=== PATIENT | female | born 1935 | race Caucasian/White ===

== ENCOUNTER 2024-06-15 08:20 | Observation (INO) | payer MEDICARE, SELFPAY ==
[2024-06-15] VITALS (18 sets, daily range): BP systolic 133–161; BP diastolic 52–97; PULSE 56–70; RESP 15–24; TEMP 36.4–36.7; O2SAT 92–97; BMI 32.1; BMI 38.5
--- NOTE | 2024-06-15 08:26 | ECG_ITS ---
[facility] Test Date: 2024-06-15 Pat Name: Vannessa Ramirez Department: Room: Gender: Female Director Writing: : 1935 Requested By: Chilo Chery Order Number: [id number] Travon MD: eMhrdad Naranjo M.D. Measurements Intervals [place] Rate: 59 P: 0 CA: 0 QRS: 0 QRSD: 104 T: 57 QT: 441 QTc: 440 Interpretive Statements Sinus bradycardia LOW QRS VOLTAGE IN PRECORDIAL LEADS [QRS DEFLECTION < 1.0 mV IN CHEST LEADS] ABNORMAL RHYTHM ECG Compared to ECG 04/14/2018 23:22:50 Low QRS voltage now present Sinus rhythm no longer present Left-axis deviation no longer present T-wave abnormality no longer present Electronically Signed On 06-15-2024 22:26:02 CDT by Mehrdad Naranjo M.D. [id number]
--- NOTE | 2024-06-15 08:31 | XR_ITS ---
WS: [id number] XR chest 1V portable [id number] REASON FOR EXAM: chest pain FINDINGS: There is moderate tortuosity of the thoracic aorta and the heart is at the upper limits of normal in size. Compared to the previous examination of 04/14/2018 there is vague increased opacity overlying both low er lung roth. This would appear to be due to overlying density and lack of optimal inspiration. Pos itioning is angled cephalically. No other significant interval change is noted. XR/XR chest 1V portable [id number] IMPRESSION: Increased opacity overlying both hemithoraces as above. This appears to be janette factual and a repeat chest with better inspiration and less angulation is recom mended.
--- NOTE | 2024-06-15 08:44 | ED_ITS ---
HPI - Chest Pain 2 General: Chief Complaint: Chest Pain Stated Complaint: chest pain Time Seen by Provider: 06/15/24 08:26 History of Present Illness: 88-year-old female who presents to the e mergency room with complaint of substernal chest pain that began this morning while at rest. Patient states the pain lasted about an hour was in the upper left portion of her chest immediately adjacent to the sternum. She did not take anything or do anything different began when she is at rest and resolved while at rest. She has had similar episodes in the past she states he has episodes about once a month she not had any recent evaluation. She reports a cardiac evaluation approximately 5 or more years ago that she was told was normal. She has no known coronary artery disease. She did have a victory ectomy at the [facility] yesterday as an outpatient. Associated symptoms: Deny abdominal pain, dyspnea or fever(s) Related Data Home Medications Medication Instructions Recorded Confirmed amlodipine 10 mg tablet 10 mg PO DAILY 06/15/24 06/15/24 calcitriol 0.25 mcg capsule 0.25 mcg PO .3X WEEKLY 06/15/24 06/15/24 furosemide 40 mg tablet 40 mg PO .EVERY OTHER DAY 06/15/24 06/15/24 insulin glargine 100 unit/mL (3 60 unit SUBCUT DAILY 06/15/24 06/15/24 mL) subcutaneous pen (Lantus Solostar U-100 Insulin) insulin glargine-yfgn 100 unit/mL 60 unit SUBCUT DAILY 06/15/24 06/15/24 (3 mL) subcutaneous pen (Semglee (insulin glargine-yfgn) Pen) metoprolol tartrate 100 mg tablet 100 mg PO BID 06/15/24 06/15/24 pen needle, diabetic 31 gauge x 06/15/24 06/15/24 5/16 (BD Ultra-Fine Short Pen Needle) sodium bicarbonate 650 mg tablet 650 mg PO TID 06/15/24 06/15/24 valsartan 80 mg tablet 80 mg PO DAILY 06/15/24 06/15/24 Allergies Allergy/AdvReac Type Severity Reaction Status Date / Time Penicillins Allergy ALGY-Hives Verified 06/15/24 13:14 Review of Systems 2 Const: Denies: fever(s) or chills Card: Denies: chest pain Resp: Denies: dyspnea GI: Denies: abdominal pain : Denies: dysuria, urinary frequency or urinary urgency Musc: Denies: neck pain or back pain Skin/Breast: Denies: rash PFSH ED 2 PFSH: Medical History Diabetes CHF (congestive heart failure) Physical Exam 2 Const: GENERAL APPEARANCE: cooperative ORIENTATION/CONSCIOUSNESS: Yes awake, Yes oriented to person, Yes oriented to place and Yes oriented to time HENMT: COMMON NORMALS: normocephalic, atraumatic and hearing grossly normal bilaterally HEAD & SCALP: normocephalic and atraumatic Resp: COMMON NORMALS: normal respiratory effort, No retractions, No use of accessory muscles and clear to auscultation bilaterally AUSCULTATION: clear to auscultation bilaterally Cardio: COMMON NORMALS: regular rate, regular rhythm and No murmurs present (Cardio) RATE: regular rate RHYTHM: regular rhythm GI: COMMON NORMALS: Soft to palpation and No hepatosplenomegaly present A USCULTATION: Yes normoactive bowel sounds PALPATION: Yes Soft to palpation, No Tenderness to palpation present (GI), No Guarding due to palpation present (GI) and Yes No hepatosplenomegaly present Extremity: COMMON NORMALS: normal to inspection, capillary refill normal, no clubbing, cyanosis or edema, no calf tenderness and no pedal edema Neuro: SENSORIUM/ORIENTATION: Yes oriented to person, Yes oriented to place and Yes oriented to time Skin: COMMON NORMALS: no rashes or lesions noted GENERAL SKIN EXAM: no rashes or lesions noted Course 2 Vital Signs: Vital signs: Vital Signs Temperature 98.1 F 06/15/24 08:26 Pulse Rate 70 06/15/24 12:30 Respiratory Rate 20 H 06/15/24 12:30 Blood Pressure 136/77 06/15/24 12:30 Pulse Oximetry 92 06/15/24 12:30 Oxygen Delivery Me thod Room Air 06/15/24 08:26 MDM - Chest Pain Medical Decision Making Patient complained of chest pain on arrival here continues to have chest discomfort she has leukocytosis as well as acute kidney injury hyponatremia and hypokalemia. Will admit the patient discussed with hospitalist orders written hyperkalemia treated. Lab Data I reviewed the patient's lab results. 06/15/24 08:40 06/15/24 08:40 Radiology Impressions Chest X-Ray 06/15/24 09:19 IMPRESSION: Stable chest with no acute abnormality. Abdomen/Pelvis CT 06/15/24 13:27 IMPRESSION: 1. No nephrolithiasis or hydronephrosis. 2. Partially imaged peribronchovascular right lower lobe ground-glass opacities with central areas of consolidation, which are nonspecific but may represent atypical or viral bronchopneumonia. Correlate with patient's symptoms and follow-up with chest CT in 4-6 weeks to assess for resolution after treatment. 3. Status post prior hiatal hernia repair. Persistent juacr-rz-abtkqawk sized hiatal hernia. 4. Multiple bilateral simple renal cysts, hemorrhagic/proteinaceous cysts and subcentimeter hypodensities are too small to properly characterize. COMMENTS: Consistent with the [place] [employer]'s Incidental Findings Committee white paper (J Am Rose Radiol 2018): Any incidental renal lesion less than 1 cm or classified as too small to characterize, or any incidental cystic renal lesion characterized as simple-appearing, is likely benign. No follow-up imaging is recommended for these lesions per consensus recommendations based on imaging criteria. Laboratory Results WBC 17.15 10^3/uL (3.29-11.43) H 06/15/24 08:40 RBC 3.50 10^6/uL (3.85-5.65) L 06/15/24 08:40 Hgb 10.70 g/dL (11.27-16.99) L 06/15/24 08:40 Hct 32.8 % (36-47) L 06/15/24 08:40 MCV 93.7 fl (85-98) 06/15/24 08:40 MCH 30.6 pg (27-33) 06/15/24 08:40 MCHC 32.6 g/dL (30-55) 06/15/24 08:40 RDW 13.1 % (12.1-15.1) 06/15/24 08:40 Plt Count 187 10^3/cmm (157-399) 06/15/24 08:40 MPV 11.1 fL (7.4-10.4) H 06/15/24 08:40 Neut % (Auto) 85.0 % 06/15/24 08:40 Lymph % (Auto) 9.7 % 06/15/24 08:40 Grimes % (Auto) 4.5 % 06/15/24 08:40 Eos % (Auto) 0.0 % 06/15/24 08:40 Baso % (Auto) 0.2 % 06/15/24 08:40 Neut # (Auto) 14.57 10^3/uL (1.8-7.7) H 06/15/24 08:40 Lymph # (Auto) 1.7 10^3/uL (0.8-4.8) 06/15/24 08:40 Grimes # (Auto) 0.8 10^3/uL (0.2-0.9) 06/15/24 08:40 Eos # (Auto) 0.0 10^3/uL (0.0-0.8) 06/15/24 08:40 Baso # (Auto) 0.0 10^3/uL (0.0-0.1) 06/15/24 08:40 Nucleated RBC % (auto) 0 % 06/15/24 08:40 Nucleated RBCs # 0.0 /100WBC 06/15/24 08:40 D-Dimer 1.50 ug/mLFEU (0-0.59) H 06/15/24 08:40 Sodium 127 mmol/L (136-145) L 06/15/24 08:40 Potassium 5.4 mmol/L (3.5-5.1) H 06/15/24 08:40 Chloride 94 mmol/L (98-107) L 06/15/24 08:40 Carbon Dioxide 18 mmol/L (22-29) L 06/15/24 08:40 Anion Gap 20.4 (5-19) H 06/15/24 08:40 BUN 48 mg/dL (8-23) H 06/15/24 08:40 Creatinine 2.8 mg/dL (0.5-0.9) H 06/15/24 08:40 GFR Calculation Not Reportable 06/15/24 08:40 Glucose 455 mg/dL (65-115) H 06/15/24 08:40 Calculated Osmolality 296 mOsm/kg (285-295) H 06/15/24 08:40 Lactic Acid 2.8 mmol/L (0.5-2.2) H 06/15/24 08:40 Lactic Acid (Sepsis) 2.2 mmol/L (0.5-2.2) 06/15/24 14:31 Calcium 8.5 mg/dL (8.5-10.5) 06/15/24 08:40 Total Bilirubin 0.4 mg/dL (0.15-1.2) 06/15/24 08:40 AST 15 U/L (0-32) 06/15/24 08:40 ALT 8 U/L (0-33) 06/15/24 08:40 Alkaline Phosphatase 142 U/L (35-105) H 06/15/24 08:40 Troponin T Baseline 31 ng/L (0-10) H 06/15/24 08:40 Troponin T 120 Minute 33.20 ng/L (0-10) H 06/15/24 10:36 Delta Troponin T 2.20 ABS# (0-10) 06/15/24 10:36 Troponin T Hi Sens 6Hr 36.42 ng/L (0-10) H 06/15/24 14:31 Troponin T Hi Sens 6Hr Delta 5.42 ng/L (0-12) 06/15/24 14:31 NT-Pro-B Natriuret Pep 3248 pg/mL (0-450) H 06/15/24 08:40 Total Protein 6.4 g/dL (6.6-8.7) L 06/15/24 08:40 Albumin 3.9 g/dL (3.5-5.2) 06/15/24 08:40 Globulin 2.5 g/dL (1.3-4.6) 06/15/24 08:40 Serum Ketones Negative (Negative) 06/15/24 08:40 All radiology interpretation(s) finalized by discharge Discharge Plan Discharge Patient Disposition: Admitted As Inpatient Admit Provider: Misha López Clinical Impression: Atypical chest pain, Acute kidney injury superimposed on chronic kidney disease, Diabetes, CHF (congestive heart failure) Condition: Stable Coding Level of Care Code ED [place] for Matt Shin
[2024-06-15 08:47] LABS: Basophils % 0.2 %; Hematocrit 32.8 % (36-47); Lymphocytes # 1.7 10^3/uL (0.8-4.8); Lymphocytes % 9.7 %; Mean Corpuscular HGB Conc 32.6 g/dL (30-55); Mean Corpuscular Hemoglobin 30.6 pg (27-33); Mean Corpuscular Volume 93.7 fl (85-98); Mean Platelet Volume 11.1 fL (7.4-10.4); Monocytes # 0.8 10^3/uL (0.2-0.9); Monocytes % 4.5 %; Neutrophils # 14.57 10^3/uL (1.8-7.7); Nucleated Red Blood Cells % 0 %; Platelet Count 187 10^3/cmm (157-399); Red Cell Distribution Width 13.1 % (12.1-15.1); White Blood Count 17.15 10^3/uL (3.29-11.43)
[2024-06-15 09:09] LABS: Troponin(5th) Baseline 31 ng/L (0-10)
[2024-06-15] MEDS: aspirin 81 mg Chew Tablet 324 MG PO (09:09)
[2024-06-15 09:14] LABS: Alanine Aminotransferase 8 U/L (0-33); Albumin Level 3.9 g/dL (3.5-5.2); Alkaline Phosphatase 142 U/L (35-105); Aspartate Amino Transferase 15 U/L (0-32); Blood Urea Nitrogen 48 mg/dL (8-23); Calcium 8.5 mg/dL (8.5-10.5); Carbon Dioxide 18 mmol/L (22-29); Chloride 94 mmol/L (98-107); Creatinine Clr Calc Pharmacy 13.5524; Globulin 2.5 g/dL (1.3-4.6); Glucose 455 mg/dL (65-115); NT Pro B Type Natriuretic Pept 3248 pg/mL (0-450); Osmolality Calculated 296 mOsm/kg (285-295); Sodium 127 mmol/L (136-145); Total Bilirubin 0.4 mg/dL (0.15-1.2); Total Protein 6.4 g/dL (6.6-8.7)
[2024-06-15 09:16] LABS: Anion Gap 20.4 (5-19); Potassium 5.4 mmol/L (3.5-5.1)
--- NOTE | 2024-06-15 09:19 | XR_ITS ---
WS: [id number] XR chest 2V* [id number] REASON FOR EXAM: abnormal AP CXR FINDINGS: Repeat examination clears the lower hemithoraces and the chest is essentially unchanged compared to . Moderate tortuosity of the thoracic aorta hiatal hernia. Heart at the upper limits of normal. No acute pulmonary parenchymal or pleural abnormality. XR/XR chest 2V* [id number] IMPRESSION: Stable chest with no acute abnormality.
--- NOTE | 2024-06-15 10:31 | ECG_ITS ---
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 Measurements Intervals [place] Rate: 57 P: -78 MA: 132 QRS: 2 QRSD: 97 T: 41 QT: 456 QTc: 446 Interpretive Statements Possible sinus bradycardia LOW QRS VOLTAGE IN PRECORDIAL LEADS [QRS DEFLECTION < 1.0 mV IN CHEST LEADS] ABNORMAL RHYTHM ECG Compared to ECG 06/15/2024 08:26:27 No significant changes Electronically Signed On 06-15-2024 22:42:18 CDT by Mehrdad Naranjo M.D. [id number]
[2024-06-15] MEDS: sodium chloride 0.9% 1,000 ML 999 ML IV (12:05)
[2024-06-15] MEDS: calcium chloride 10% Syr 10 mL 1 GM IVP (12:06)
[2024-06-15] MEDS: insulin regular-human 100 units/1 mL 10 UNIT IVP (12:15)
[2024-06-15 12:25] LABS: Ketone (Acetest) Serum Negative (Negative)
[2024-06-15 12:35] LABS: Lactic Sepsis W/Reflex 2.8 mmol/L (0.5-2.2)
--- NOTE | 2024-06-15 13:02 | PC.NURSE ---
WHEN PT IS D/C, SOMEONE WILL NEED TO CONTACT [facility] FOR AN APPT FOR PT. PT HAD A PROCEDURE DONE ON 06/14 AND WAS SUPPOSED TO BE SEEN TODAY BUT IS BEING ADMITTED TO THE HOSPITAL.
--- NOTE | 2024-06-15 13:09 | P.HP_ITS ---
Providers/Chief Complaint 2 Primary Care Provider: Teja Yost MD Chief Complaint: chest pain History of Present Illness Vannessa Ramirez is a 88 year old female presented with chief complaint chest pain. She is able to pinpoint her area of chest pain which is just next to her sternum on left side, not associated with shortness of breath chest pain nausea vomiting or diarrhea. She recently had eye surgery. Patient is stating that she had high potassium and abnormal creatinine few weeks ago as well she is seeing a airline dispatcher as well at [place]. She is compliant with her medications. No active chest pain at the time my evaluation Review of Systems 2 Const: Denies: fever(s) Eyes: Denies: change in vision ENMT: Denies: throat pain Card: Reports: chest pain Resp: Denies: dyspnea GI: Denies: abdominal pain Medications/Allergies Home Medications Medication Instructions Recorded Confirmed Last Taken Type amlodipine 10 mg tablet 10 mg PO DAILY 06/15/24 06/15/24 06/14/24 History calcitriol 0.25 mcg capsule 0.25 mcg PO .3X WEEKLY 06/15/24 06/15/24 Unknown History furosemide 40 mg tablet 40 mg PO .EVERY OTHER DAY 06/15/24 06/15/24 Unknown History insulin glargine 100 unit/mL (3 60 unit SUBCUT DAILY 06/15/24 06/15/24 Unknown History mL) subcutaneous pen (Lantus Solostar U-100 Insulin) insulin glargine-yfgn 100 unit/mL 60 unit SUBCUT DAILY 06/15/24 06/15/24 06/14/24 History (3 mL) subcutaneous pen (Semglee (insulin glargine-yfgn) Pen) metoprolol tartrate 100 mg tablet 100 mg PO BID 06/15/24 06/15/24 Unknown History pen needle, diabetic 31 gauge x 06/15/24 06/15/24 Unknown History 5/16 (BD Ultra-Fine Short Pen Needle) sodium bicarbonate 650 mg tablet 650 mg PO TID 06/15/24 06/15/24 Unknown History valsartan 80 mg tablet 80 mg PO DAILY 06/15/24 06/15/24 Unknown History Allergies Allergy/AdvReac Type Severity Reaction Status Date / Time Penicillins Allergy ALGY-Hives Verified 06/15/24 13:14 PFSH Acute 2 PFSH: Medical History Diabetes CHF (congestive heart failure) Vitals/I&O/Wt Last Vital Signs Temp 98.1 F 06/15/24 08:26 Pulse 70 06/15/24 12:30 Resp 20 H 06/15/24 12:30 BP 136/77 06/15/24 12:30 Pulse Ox 92 06/15/24 12:30 O2 Del Method Room Air 06/15/24 08:26 Weight last 48 hrs Weight 77.111 kg Physical Exam 2 Narrative: Reproducible chest pain Euvolemic GCS 15 Pleasant above Normotensive Currently on room air Pleasant cooperative Family at the bedside No audible stridor or wheezing S1, S2 Data 06/15/24 08:40 06/15/24 08:40 A&P Assessment and plan (1) Hyperkalemia: (2) JANELLE (acute kidney injury): (3) Acute kidney injury superimposed on chronic kidney disease: (4) Atypical chest pain: Plan Reproducible chest pain Atypical pain I do not have concern related to ACS syndrome Will request echo to see wall motion abnormality Troponin trending down Requested D-dimer Acute on chronic kidney disease Hyperkalemia Give Kayexalate, hyperkalemia cocktail Discontinue valsartan Patient already follows up with a airline dispatcher I do not know her baseline creatinine To rule out cluster uropathy will request CT abdomen pelvis, urine supple was taken from the urine hat which definitely showed contamination Will keep her on consistent carb diet along sliding scale and reduce dose of insulin For hypertension continue metoprolol, discontinue valsartan and switch to metoprolol and amlodipine Attestations 2 Medical Necessity Statement*: Likely discharge within 48 hours Diagnoses Hyperkalemia E87.5 JANELLE (acute kidney injury) N17.9 Acute kidney injury superimposed on chronic kidney disease N17.9; N18.9 Atypical chest pain R07.89
[2024-06-15] MEDS: cefTRIAXone 1,000 mg SDV 1000 MG IVP (13:13)
--- NOTE | 2024-06-15 13:27 | CTR_ITS ---
PROCEDURE INFORMATION: Exam: CT Abdomen And Pelvis Without Contrast Exam date and time: 06/15/2024 2:18 PM Age: 88 years old Clinical indication: Pain; Other: Chest; Prior surgery; Surgery date: 6+ months; Surgery type: Gb; Additional info: Venkatesh TECHNIQUE: Imaging protocol: Computed tomography of the abdomen and pelvis without contrast. Radiation optimization: All CT scans at this facility use at least one of these dose optimization techniques: automated exposure control; mA and/or kV adjustment per patient size (includes targeted exams where dose is matched to clinical indication); or iterative reconstruction. COMPARISON: CR XR chest 2V* [id number] 06/15/2024 9:35 AM RADIATION DOSE METRICS: Total DLP (mGy-cm): 797.13 FINDINGS: Lungs: Partially imaged peribronchovascular right lower lobe ground-glass opacities with central areas of consolidation. Heart: Low-attenuation of the cardiac chambers in relation to the interventricular septum, suggestive of anemia. Diaphragm: There is a etpgl-qw-lroxcgox sized hiatal hernia. Status post prior hiatal hernia repair. Liver: Mildly nodular contour of the liver. Gallbladder and biliary ducts: There has been a cholecystectomy. No biliary ductal dilatation. Pancreas: There is diffuse fatty atrophy of the pancreatic parenchyma. No ductal dilation. Spleen: The spleen demonstrates punctate calcifications, consistent with remote granulomatous organism exposure. Adrenal glands: The adrenal glands are unremarkable. Kidneys and ureters: Multiple bilateral simple renal cysts, hemorrhagic/proteinaceous cysts and subcentimeter hypodensities are too small to properly characterize. No nephrolithiasis or hydronephrosis. Stomach and bowel: Colonic diverticulosis without evidence of diverticulitis. There is no bowel wall thickening. No bowel obstruction. Appendix: A normal appendix is identified. Intraperitoneal space: No significant peritoneal free fluid. No free peritoneal air. Vasculature: The vasculature demonstrates diffuse moderate atherosclerotic calcification. No aneurysm. Lymph nodes: No enlarged lymph nodes by size criteria. Urinary bladder: The bladder is unremarkable. Reproductive: Uterus is unremarkable. No suspicious adnexal lesion seen. Bones/joints: The spine demonstrates moderate degenerative changes at multiple levels. Soft tissues: Soft tissues are unremarkable as visualized. CT/CT abdomen pelvis wo con [id number] IMPRESSION: 1. No nephrolithiasis or hydronephrosis. 2. Partially imaged peribronchovascular right lower lobe ground-glass opacities with central areas of consolidation, which are nonspecific but may represent atypical or viral bronchopneumonia. Correlate with patient's symptoms and follow-up with chest CT in 4-6 weeks to assess for resolution after treatment. 3. Status post prior hiatal hernia repair. Persistent akpqz-wm-duouhbgs sized hiatal hernia. 4. Multiple bilateral simple renal cysts, hemorrhagic/proteinaceous cysts and subcentimeter hypodensities are too small to properly characterize. COMMENTS: Consistent with the [place] [employer]'s Incidental Findings Committee white paper (J Am Rose Radiol 2018): Any incidental renal lesion less than 1 cm or classified as too small to characterize, or any incidental cystic renal lesion characterized as simple-appearing, is likely benign. No follow-up imaging is recommended for these lesions per consensus recommendations based on imaging criteria.
[2024-06-15 13:51] LABS: Bilirubin Urine Negative (Negative); Blood Urine Trace (Negative); Glucose Urine UA 3+ (Normal); Ketones Urine Negative (Negative); Leukocyte Esterase Urine Trace (Negative); Nitrate Urine Negative (Negative); Protein Urine 3+ (Negative); Specific Gravity, Urine 1.013 (1.005-1.030); Urine Appearance Clear (CLEAR); Urine Color Yellow (Yellow); Urobilinogen Urine 0.2 mg/dL (Negative); pH Urine 6.5 (5-7)
[2024-06-15 13:53] LABS: Add Urine Microscopic? YES; Bacteria Urine None Seen /hpf; Hyaline Casts Urine 0-4 /lpf; RBC Urine 0-2 /hpf (0-2); Squamous Epithelial Cell Urine 0-5 /hpf (0-5); WBC Urine 0-5 /hpf (0-5)
[2024-06-15 14:09] LABS: Reflex Lactate Order REFLEX LACTIC ORDERD
[2024-06-15 14:54] LABS: Troponin 5 6HR 36.42 ng/L (0-10); Troponin 5 6HR Delta 5.42 ng/L (0-12)
[2024-06-15 14:55] LABS: Lactic Acid level (Lactate) 2.2 mmol/L (0.5-2.2)
[2024-06-15] MEDS: cefepime 1,000 MG in sodium chloride 0.9% (plus) 50 ML 100 MG IV (15:11)
[2024-06-15] MEDS: sodium polystyrene sulfonate 15 gm/60 mL Btl PO (15:14)
--- NOTE | 2024-06-15 15:15 | ECG_ITS ---
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 Measurements Intervals [place] Rate: 70 P: 68 [place]: 194 QRS: 2 QRSD: 102 T: 54 QT: 403 QTc: 436 Interpretive Statements SINUS RHYTHM LOW QRS VOLTAGE IN PRECORDIAL LEADS [QRS DEFLECTION < 1.0 mV IN CHEST LEADS] POSSIBLE RIGHT VENTRICULAR CONDUCTION DELAY [RSR (QR) IN V1/V2] NONSPECIFIC T-WAVE ABNORMALITY Compared to ECG 06/15/2024 10:46:31 T-wave abnormality now present Electronically Signed On 06-15-2024 22:45:22 CDT by Mehrdad Naranjo M.D. [id number]
[2024-06-15] MEDS: lactated ringers 1,000 ML 999 ML IV (15:16)
[2024-06-15] MEDS: linezolid premix 600 MG/300 ML PREMIX 300 MG IV (15:26)
[2024-06-15 16:41] LABS: Covid PCR NEGATIVE (Negative); Influenza A NEGATIVE (Negative); Influenza B NEGATIVE (Negative); Respiratory Syncytial Virus Ce NEGATIVE (Negative)
[2024-06-15 16:49] LABS: Estmated Average Glucose 197; Hemoglobin A1C 8.5 % (4.0-6.0)
[2024-06-15 16:55] LABS: Glucose Point of Care 321 mg/dL (70-110)
[2024-06-15] MEDS: heparin 5,000 unit/mL INJ 1 mL 5000 UNIT SUBCUT (17:19)
[2024-06-15] MEDS: sodium bicarbonate 650 mg Tablet PO ×2 (17:20→20:21)
[2024-06-15] MEDS: sodium chloride 0.9% 1,000 ML 75 ML IV (17:20)
[2024-06-15] MEDS: metoprolol tartrate 50 mg Tablet 100 MG PO (17:21)
[2024-06-15] MEDS: insulin lispro 100 unit/1 mL SUBCUT (17:22)
[2024-06-15 20:22] LABS: Glucose Point of Care 337 mg/dL (70-110)
[2024-06-15] MEDS: insulin glargine 100 units/1 mL 40 UNIT SUBCUT (21:23)
[2024-06-16] MEDS: linezolid premix 600 MG/300 ML PREMIX 300 MG IV (02:04)
[2024-06-16 02:39] LABS: Basophils # 0.1 10^3/uL (0.0-0.1); Basophils % 0.5 %; Eosinophils % 0.2 %; Hematocrit 30.6 % (36-47); Lymphocytes # 2.6 10^3/uL (0.8-4.8); Lymphocytes % 20.5 %; Mean Corpuscular Hemoglobin 30.5 pg (27-33); Mean Corpuscular Volume 95.3 fl (85-98); Mean Platelet Volume 11.3 fL (7.4-10.4); Monocytes # 0.7 10^3/uL (0.2-0.9); Monocytes % 5.7 %; Neutrophils % 72.4 %; Nucleated Red Blood Cells % 0 %; Platelet Count 174 10^3/cmm (157-399); Red Blood Count 3.21 10^6/uL (3.85-5.65); Red Cell Distribution Width 13.3 % (12.1-15.1); White Blood Count 12.85 10^3/uL (3.29-11.43)
[2024-06-16 03:09] LABS: Anion Gap 16.4 (5-19); Blood Urea Nitrogen 50 mg/dL (8-23); Carbon Dioxide 19 mmol/L (22-29); Chloride 108 mmol/L (98-107); Glucose 244 mg/dL (65-115); Magnesium 1.7 mg/dL (1.7-2.3); Osmolality Calculated 309 mOsm/kg (285-295); Potassium 4.4 mmol/L (3.5-5.1); Sodium 139 mmol/L (136-145)
[2024-06-16 03:10] LABS: Creatinine Clr Calc Pharmacy 16.0944
[2024-06-16] MEDS: cefepime 1,000 MG in sodium chloride 0.9% (plus) 50 ML 100 MG IV (03:35)
[2024-06-16] MEDS: heparin 5,000 unit/mL INJ 1 mL 5000 UNIT SUBCUT (03:36)
[2024-06-16 03:51] VITALS: BP 160/69; PULSE 56; RESP 21; TEMP 36.2; O2SAT 92
[2024-06-16 05:41] VITALS: PULSE 55
--- NOTE | 2024-06-16 06:27 | USCV_ITS ---
[place], [place] Age: 88 Gender: F : 1935 Exam Date: 06/16/2024 08:55 Ordering Phys: Misha López MD Technologist: Yohan Castorena [place] [facility] [place] [facility] [place]: chest pain BP: 158 / 64 HR: 52 Rhythm: Sinus Technical Quality: Adequate MEASUREMENTS (Male / Female) Normal Values 2D ECHO LV Diastolic Diameter PLAX 4.2 cm 4.2 - 5.9 / 3.9 - 5.3 cm IVS Diastolic Thickness 1.4 cm 0.6 - 1.0 / 0.6 - 0.9 cm IVS Systolic Thickness 1.8 cm LVPW Diastolic Thickness 2.0 cm 0.6 - 1.0 / 0.6 - 0.9 cm LVPW Systolic Thickness 2.0 cm LVOT Diameter 2.0 cm LV Ejection Fraction 2D Teich 60.8 % LV Ejection Fraction MOD 4C 62.0 % LV Ejection Fraction MOD 2C 65.1 % LV Ejection Fraction 2C AL 66.3 % RA Systolic Volume 4C AL 52.2 ml RA Systolic Volume 4C MOD 52.9 ml LA Sys Volume AL 48.4 cm cubed LA Sys Volume Index AL 26.6 cm cubed/m squared Aorta at Sinotubular Diameter 2.5 cm IVC Diameter 1.9 cm M-MODE LA Ao Ratio MM 1.2 AV Cusp Separation MM 2.0 cm DOPPLER AV Peak Velocity 155.8 cm/s LVOT Peak Velocity 101.0 cm/s AV Area Cont Eq vti 2.0 cm squared AV Area Cont Eq pk 2.1 cm squared MV Peak Velocity 230.7 cm/s MV Area PHT 2.1 cm squared Mitral E to A Ratio 0.9 TV Peak Velocity 288.5 cm/s TR Peak Velocity 389.0 cm/s TR Peak Gradient 60.5 mmHg TR Mean Velocity 313.0 cm/s TR Mean Gradient 41.6 mmHg TR Velocity Time Integral 130.5 cm RV Ejection Time 0.4 s FINDINGS Left Ventricle Left ventricle is normal in size. LV systolic function is normal with EF of 55 to 60%. No regional wall motion abnormalities are seen. Grade 1 diastolic dysfunction Right Ventricle Normal in size and function. Right Atrium Normal in size Left Atrium Normal in size Mitral Valve Mild mitral annular calcification. Mild mitral regurgitation. Aortic Valve Aortic valve is thickened. No significant stenosis or regurgitation. Tricuspid Valve Mild tricuspid regurgitation. RVSP is 55 to 60 mmHg. This is consistent with moderate to severe pulmonary hypertension Pulmonic Valve Not well visualized Pericardium Normal Aorta Normal in size IVC Appears to be normal CONCLUSIONS LV systolic function is normal with EF of 55-60% Grade 1 diastolic dysfunction Mild mitral regurgitation Mild tricuspid regurgitation Moderate to severe pulmonary hypertension Kedar Holbrook MD (Electronically Signed) Final Date: 16 June 2024 13:10 S
[2024-06-16 07:38] LABS: Glucose Point of Care 207 mg/dL (70-110)
[2024-06-16 08:04] VITALS: BP 158/64; PULSE 59; RESP 20; TEMP 36.6; O2SAT 94
[2024-06-16] MEDS: sodium bicarbonate 650 mg Tablet PO (08:16)
[2024-06-16] MEDS: insulin lispro 100 unit/1 mL SUBCUT (08:16)
[2024-06-16] MEDS: amlodipine 10 mg Tablet PO (08:16)
[2024-06-16] MEDS: metoprolol tartrate 50 mg Tablet 100 MG PO (08:16)
--- NOTE | 2024-06-16 08:23 | PM.DCS ---
Discharge Providers Date of Admission: 06/15/24 15:25 Date of Discharge: June 16, 2024 Attending Provider at Admission: Misha López MD Attending Provider at Discharge: Misha López MD Primary Care Provider: Teja Yost MD Diagnoses at Discharge Discharge Diagnosis (1) Hyperkalemia: Status: Acute (2) JANELLE (acute kidney injury): Status: Acute (3) Acute kidney injury superimposed on chronic kidney disease: Status: Acute (4) Atypical chest pain: Status: Acute Reason for Visit Reason for Visit: chest pain Hospital Course Hospital Course 88-year-old female with history of chronic kidney disease follows up with a manager of enterprise at [facility], [place], presented with chief complaint of chest pain. Her chest pain was atypical, it was reproducible, she was able to pinpoint the area of chest pain as well. She was diagnosed with hyperkalemia and JANELLE that prompted admission in the hospital, with IV fluid hydration and hyperkalemia cocktail her creatinine and hyperkalemia improved. She did not experience recurrence of chest pain. Troponin without significant elevation, she is already on bicarb tablets prescribed by her manager of enterprise. I have asked her not to take valsartan which can cause hyperkalemia and worsening of creatinine at this point. We do not have her baseline creatinine. Patient is ready to go home and follow-up with outpatient manager of enterprise. She remained afebrile, her leukocyte was around 17,000 on admission which improved to 12,000, she seems to have bronchopneumonia for which she will require antibiotic for at least 5 days. She remained afebrile did not require oxygen. Her D-dimer was 1.5 which is not high for her age. Physical Exam Narrative: Hemodynamically stable GCS 15 Pleasant cooperative Nonfocal neuroexam Discharge Data Studies Completed and Pending Completed Studies During Hospitalization Category Date Time Status CT abdomen pelvis wo con [id number] Stat Cat Scan 06/15/24 13:27 Completed XR chest 1V portable [id number] Stat Exams 06/15/24 08:31 Completed XR chest 2V* [id number] Stat Exams 06/15/24 09:19 Completed Pending at discharge Category Date Time Status Blood Culture Stat Lab 06/15/24 14:47 Results CV. echo complete* [id number] Stat Ultrasound 06/16/24 06:27 Ordered Radiology Impressions Chest X-Ray 06/15/24 09:19 IMPRESSION: Stable chest with no acute abnormality. Abdomen/Pelvis CT 06/15/24 13:27 IMPRESSION: 1. No nephrolithiasis or hydronephrosis. 2. Partially imaged peribronchovascular right lower lobe ground-glass opacities with central areas of consolidation, which are nonspecific but may represent atypical or viral bronchopneumonia. Correlate with patient's symptoms and follow-up with chest CT in 4-6 weeks to assess for resolution after treatment. 3. Status post prior hiatal hernia repair. Persistent [id number] sized hiatal hernia. 4. Multiple bilateral simple renal cysts, hemorrhagic/proteinaceous cysts and subcentimeter hypodensities are too small to properly characterize. COMMENTS: Consistent with the [employer]'s Incidental Findings Committee white paper (J Am Rose Radiol 2018): Any incidental renal lesion less than 1 cm or classified as too small to characterize, or any incidental cystic renal lesion characterized as simple-appearing, is likely benign. No follow-up imaging is recommended for these lesions per consensus recommendations based on imaging criteria. Laboratory Results WBC 12.85 10^3/uL (3.29-11.43) H 06/16/24 02:15 RBC 3.21 10^6/uL (3.85-5.65) L 06/16/24 02:15 Hgb 9.80 g/dL (11.27-16.99) L 06/16/24 02:15 Hct 30.6 % (36-47) L 06/16/24 02:15 MCV 95.3 fl (85-98) 06/16/24 02:15 MCH 30.5 pg (27-33) 06/16/24 02:15 MCHC 32.0 g/dL (30-55) 06/16/24 02:15 RDW 13.3 % (12.1-15.1) 06/16/24 02:15 Plt Count 174 10^3/cmm (157-399) 06/16/24 02:15 MPV 11.3 fL (7.4-10.4) H 06/16/24 02:15 Neut % (Auto) 72.4 % 06/16/24 02:15 Lymph % (Auto) 20.5 % 06/16/24 02:15 [place] % (Auto) 5.7 % 06/16/24 02:15 Eos % (Auto) 0.2 % 06/16/24 02:15 Baso % (Auto) 0.5 % 06/16/24 02:15 Neut # (Auto) 9.30 10^3/uL (1.8-7.7) H 06/16/24 02:15 Lymph # (Auto) 2.6 10^3/uL (0.8-4.8) 06/16/24 02:15 [place] # (Auto) 0.7 10^3/uL (0.2-0.9) 06/16/24 02:15 Eos # (Auto) 0.0 10^3/uL (0.0-0.8) 06/16/24 02:15 Baso # (Auto) 0.1 10^3/uL (0.0-0.1) 06/16/24 02:15 Nucleated RBC % (auto) 0 % 06/16/24 02:15 Nucleated RBCs # 0.0 /100WBC 06/16/24 02:15 D-Dimer 1.50 ug/mLFEU (0-0.59) H 06/15/24 08:40 Sodium 139 mmol/L (136-145) 06/16/24 02:15 Potassium 4.4 mmol/L (3.5-5.1) 06/16/24 02:15 Chloride 108 mmol/L (98-107) H 06/16/24 02:15 Carbon Dioxide 19 mmol/L (22-29) L 06/16/24 02:15 Anion Gap 16.4 (5-19) 06/16/24 02:15 BUN 50 mg/dL (8-23) H 06/16/24 02:15 Creatinine 2.6 mg/dL (0.5-0.9) H 06/16/24 02:15 GFR Calculation Not Reportable 06/16/24 02:15 Glucose 244 mg/dL (65-115) H 06/16/24 02:15 POC Glucose 207 mg/dL (70-110) H 06/16/24 07:34 Estimat Average Glucose 197 06/15/24 08:40 Hemoglobin A1c 8.5 % (4.0-6.0) H 06/15/24 08:40 Calculated Osmolality 309 mOsm/kg (285-295) H 06/16/24 02:15 Lactic Acid 2.8 mmol/L (0.5-2.2) H 06/15/24 08:40 Lactic Acid (Sepsis) 2.2 mmol/L (0.5-2.2) 06/15/24 14:31 Calcium 8.0 mg/dL (8.5-10.5) L 06/16/24 02:15 Magnesium 1.7 mg/dL (1.7-2.3) 06/16/24 02:15 Total Bilirubin 0.4 mg/dL (0.15-1.2) 06/15/24 08:40 AST 15 U/L (0-32) 06/15/24 08:40 ALT 8 U/L (0-33) 06/15/24 08:40 Alkaline Phosphatase 142 U/L (35-105) H 06/15/24 08:40 Troponin T Baseline 31 ng/L (0-10) H 06/15/24 08:40 Troponin T 120 Minute 33.20 ng/L (0-10) H 06/15/24 10:36 Delta Troponin T 2.20 ABS# (0-10) 06/15/24 10:36 Troponin T Hi Sens 6Hr 36.42 ng/L (0-10) H 06/15/24 14:31 Troponin T Hi Sens 6Hr Delta 5.42 ng/L (0-12) 06/15/24 14:31 NT-Pro-B Natriuret Pep 3248 pg/mL (0-450) H 06/15/24 08:40 Total Protein 6.4 g/dL (6.6-8.7) L 06/15/24 08:40 Albumin 3.9 g/dL (3.5-5.2) 06/15/24 08:40 Globulin 2.5 g/dL (1.3-4.6) 06/15/24 08:40 Urine Color Yellow (Yellow) 06/15/24 Unknown Urine Appearance Clear (CLEAR) 06/15/24 Unknown Urine pH 6.5 (5-7) 06/15/24 Unknown Ur Specific Parker 1.013 (1.005-1.030) 06/15/24 Unknown Urine Protein 3+ (Negative) A 06/15/24 Unknown Urine Glucose (UA) 3+ (Normal) H 06/15/24 Unknown Urine Ketones Negative (Negative) 06/15/24 Unknown Urine Blood Trace (Negative) A 06/15/24 Unknown Urine Nitrate Negative (Negative) 06/15/24 Unknown Urine Bilirubin Negative (Negative) 06/15/24 Unknown Urine Urobilinogen 0.2 mg/dL (Negative) 06/15/24 Unknown Ur Leukocyte Esterase Trace (Negative) A 06/15/24 Unknown Urine RBC 0-2 /hpf (0-2) 06/15/24 Unknown Urine WBC 0-5 /hpf (0-5) 06/15/24 Unknown Ur Squamous Epith Cells 0-5 /hpf (0-5) 06/15/24 Unknown Amorphous Sediment Not Reportable 06/15/24 Unknown Urine Bacteria None seen /hpf (NONE) 06/15/24 Unknown Hyaline Casts 0-4 /lpf H 06/15/24 Unknown Serum Ketones Negative (Negative) 06/15/24 08:40 Coronavirus (PCR) Negative (Negative) 06/15/24 15:53 Influenza A (PCR) Negative (Negative) 06/15/24 15:53 Influenza Type B (PCR) Negative (Negative) 06/15/24 15:53 RSV (PCR) Negative (Negative) 06/15/24 15:53 Vitals Last Vital Signs Temp 97.8 F 06/16/24 08:04 Pulse 59 L 06/16/24 08:04 Resp 20 H 06/16/24 08:04 BP 158/64 06/16/24 08:04 Pulse Ox 94 06/16/24 08:04 O2 Del Method Room Air 06/16/24 08:04 Discharge Plan Discharge Patient Disposition: Home Condition: Stable Prescriptions: New cefpodoxime 200 mg tablet 200 mg PO BID Qty: 10 0RF Rx Instructions: must administer with a meal/food doxycycline hyclate 100 mg tablet 100 mg PO BID 5 Days Qty: 10 0RF hydralazine 25 mg tablet 25 mg PO BID Qty: 60 5RF Continued furosemide 40 mg tablet 40 mg PO .EVERY OTHER DAY metoprolol tartrate 100 mg tablet 100 mg PO BID sodium bicarbonate 650 mg tablet 650 mg PO TID amlodipine 10 mg tablet 10 mg PO DAILY calcitriol 0.25 mcg capsule 0.25 mcg PO .3X WEEKLY (DME) pen needle, diabetic [BD Ultra-Fine Short Pen Needle] 31 gauge x 5/16 needle MISCELLANEOUS insulin glargine [Lantus Solostar U-100 Insulin] 100 unit/mL (3 mL) insulin pen 60 unit SUBCUT DAILY insulin glargine-yfgn [Semglee(insulin glarg-yfgn)Pen] 100 unit/mL (3 mL) insulin pen 60 unit SUBCUT DAILY Discontinued valsartan 80 mg tablet 80 mg PO DAILY Discharge Orders: Discharge Order (Routine); Ordered 06/16/24 Ordered By: Misha López Referrals: Teja Yost MD [Primary Care Provider] - Discharge Diet: Diabetic Discharge Activity: Increase activity as tolerated Patient Instructions: Opioid Safety, Pain Management Discharge Attestations Time Spent in Discharge Care*: greater than 30 min Quality Metrics Clinical Quality Measures [ No reported AMI, CVA or VTE this stay] Coding Level of Care Code Acute Code for Chg Fwd Diagnoses Hyperkalemia E87.5 JANELLE (acute kidney injury) N17.9 Acute kidney injury superimposed on chronic kidney disease N17.9; N18.9 Atypical chest pain R07.89
[2024-06-16 08:41] VITALS: BP 158/64; PULSE 59; RESP 20; TEMP 36.6; O2SAT 94
[2024-06-16 10:00] VITALS: PULSE 79; RESP 18; O2SAT 94
[2024-06-16] MEDS: calcium carbonate 500 mg Chew Tablet PO (10:51)
[2024-06-16 11:59] VITALS: BP 135/66; PULSE 53; RESP 20; TEMP 36.3; O2SAT 95
[2024-06-16 12:51] LABS: Glucose Point of Care 136 mg/dL (70-110)
--- NOTE | 2024-06-16 13:56 | PC.NURSE ---
discharge instructions given and explained.pt verb understanding of instructions.discharged via w/c to exit at this time
== END 2024-06-16 13:57 | disposition home or self-care (01) ==
LOC: ER 09:59 → CSU 15:42
PROVIDERS: Admitting Provider Internal Medicine; Emergency Provider Family Medicine; PCP Family Medicine; Visit Provider Internal Medicine
DX: R07.89 Other chest pain (principal); N17.9 Acute kidney failure, unspecified; E87.5 Hyperkalemia; N18.9 Chronic kidney disease, unspecified; E11.22 Type 2 diabetes mellitus with diabetic chronic kidney disease; I50.9 Heart failure, unspecified; Z79.4 Long term (current) use of insulin
CPT/HCPCS: 0241U; 36415; 36416; 71045; 71046; 74176; 80048; 80053; 81001; 82009; 82962; 83036; 83605; 83735; 83880; 84484; 85025; 85378; 87040; 93005; 93306; 96365; 96367; 96372; 96375; 99285; G0378; J0692; J0696; J1644; J1815; J2020; J3490; J7030; J7120

== ENCOUNTER 2024-09-17 12:55 | Inpatient (IN) | payer MEDICARE, SELFPAY ==
[2024-09-17] VITALS (10 sets, daily range): BP systolic 129–217; BP diastolic 78–105; PULSE 65–91; RESP 16–18; TEMP 35.9–36.4; O2SAT 91–97; BMI 32.6; BMI 32.5
--- NOTE | 2024-09-17 13:07 | XR_ITS ---
WS: [id number] XR shoulder RT min 2V* [id number] REASON FOR EXAM: injury FINDINGS: Difficult to interpret due to the portable technique with all bony structures of the shoulder overlap ped. There does not appear to be a dislocation. There is likely a minimally displaced fracture of the surgical neck with the humeral head fragment ov erlapping the femoral shaft. XR/XR shoulder RT min 2V* [id number] IMPRESSION: Suspect minimally displaced surgical neck fracture of the proximal humerus over lapping the humeral shaft. Presumably the patient's condition limits a good plain film examination. Nonenh anced CT scan of the shoulder would resolve the issue if needed.
--- NOTE | 2024-09-17 14:29 | XR_ITS ---
WS: [id number] [place] [id number] REASON FOR EXAM: injury FINDINGS: On this examination there is a better evaluation of the proximal humerus. No surgical neck fracture i s identified. The deformity noted on the previous shoulder x-ray may be due to an old healed fracture . Mild superior subluxation of the humeral head with some narrowing of the acromial humeral interval. Oblique fracture of the distal third of the humeral shaft with overlapping of the fracture fragments and medial angulation at the fracture site. XR/[place] [id number] IMPRESSION: Humeral surgical neck is intact as is the humeral head. No acute fracture. There is a fracture of the distal third of the humeral shaft as above. Laxity with mild superior subluxation of the humeral head.
--- NOTE | 2024-09-17 14:33 | ED_ITS ---
HPI - Extremity Problem 2 General: Chief complaint: Extremity Injury, Upper Stated complaint: R. arm injury Time Seen by Provider: 09/17/24 13:30 History of Present Illness: 88-year-old female presents emergency ro om after ground-level mechanical fall at home. She landed on an outstretched right arm has an obvious deformity. She denies any other injury she is has family members with her. Associated symptoms: Deny chest pain, fever(s) or rash Related Data Home Medications Medication Instructions Recorded Confirmed amlodipine 10 mg tablet 10 mg PO DAILY 06/15/24 09/17/24 calcitriol 0.25 mcg capsule 0.25 mcg PO .3X WEEKLY 06/15/24 09/17/24 furosemide 40 mg tablet 40 mg PO .EVERY OTHER DAY 06/15/24 09/17/24 insulin glargine 100 unit/mL (3 60 unit SUBCUT DAILY 06/15/24 09/17/24 mL) subcutaneous pen (Lantus Solostar U-100 Insulin) metoprolol tartrate 100 mg tablet 100 mg PO BID 06/15/24 09/17/24 pen needle, diabetic 31 gauge x 06/15/24 09/17/24 5/16 (BD Ultra-Fine Short Pen Needle) sodium bicarbonate 650 mg tablet 650 mg PO TID 06/15/24 09/17/24 pantoprazole 40 mg tablet,delayed 40 mg PO BID 09/17/24 09/17/24 release Previous Rx's Medication Instructions Recorded hydralazine 25 mg tablet 25 mg PO BID #60 tabs 06/16/24 Allergies Allergy/AdvReac Type Severity Reaction Status Date / Time Penicillins Allergy ALGY-Hives Verified 09/17/24 13:07 Review of Systems 2 Const: Denies: fever(s) or chills Card: Denies: chest pain Resp: Denies: dyspnea GI: Denies: abdominal pain : Denies: dysuria, urinary frequency or urinary urgency Musc: Reports: extremity pain; Denies: neck pain or back pain Skin/Breast: Denies: rash PFSH ED 2 PFSH: Medical History Atypical chest pain Acute kidney injury superimposed on chronic kidney disease JANELLE (acute kidney injury) Hyperkalemia Diabetes CHF (congestive heart failure) Physical Exam 2 Const: COMMON NORMALS: no acute distress GENERAL APPEARANCE: cooperative and comfortable ORIENTATION/CONSCIOUSNESS: Yes awake, Yes oriented to person, Yes oriented to place and Yes oriented to time HENMT: COMMON NORMALS: normocephalic, atraumatic and hearing grossly normal bilaterally HEAD & SCALP: normocephalic and atraumatic Resp: COMMON NORMALS: normal respiratory effort, No retractions, No use of accessory muscles and clear to auscultation bilaterally AUSCULTATION: clear to auscultation bilaterally Cardio: COMMON NORMALS: regular rate, regular rhythm and No murmurs present (Cardio) RATE: regular rate RHYTHM: regular rhythm GI: COMMON NORMALS: Soft to palpation and No hepatosplenomegaly present A USCULTATION: Yes normoactive bowel sounds PALPATION: Yes Soft to palpation, No Tenderness to palpation present (GI), No Guarding due to palpation present (GI) and Yes No hepatosplenomegaly present Extremity: OTHER: Obvious deformity of the right humerus with a midshaft humeral fracture noted on exam. There is no tenting of the skin. Neurovascularly intact. Able to move fingers at the hand and the radial and ulnar pulses are palpable. Neuro: SENSORIUM/ORIENTATION: Yes oriented to person, Yes oriented to place and Yes oriented to time Skin: COMMON NORMALS: no rashes or lesions noted GENERAL SKIN EXAM: no rashes or lesions noted Course 2 Vital Signs: Vital signs: Vital Signs Temperature 96.6 F L 09/17/24 13:04 Pulse Rate 79 09/17/24 16:33 Respiratory Rate 18 09/17/24 16:31 Blood Pressure 176/105 09/17/24 16:33 Pulse Oximetry 94 09/17/24 16:33 Oxygen Delivery Me thod Room Air 09/17/24 16:33 MDM - Extremity (Nontraumatic) Medical Decision Making Posterior arm splint applied loosely around the area of the fracture. Checked the Matt wrap it is not constricting. Discussed with Dr. Landry he will consult on the patient admit to hospitalist. Medical Records I reviewed the patient's medical records. Lab Data I reviewed the patient's lab results. 09/17/24 16:00 09/17/24 16:00 Radiology Impressions Shoulder X-Ray 09/17/24 13:07 IMPRESSION: Suspect minimally displaced surgical neck fracture of the proximal humerus overlapping the humeral shaft. Presumably the patient's condition limits a good plain film examination. Nonenhanced CT scan of the shoulder would resolve the issue if needed. Humerus X-Ray 09/17/24 14:29 IMPRESSION: Humeral surgical neck is intact as is the humeral head. No acute fracture. There is a fracture of the distal third of the humeral shaft as above. Laxity with mild superior subluxation of the humeral head. Chest X-Ray 09/17/24 14:40 IMPRESSION: No acute chest abnormality. Laboratory Results WBC 16.66 10^3/uL (3.29-11.43) H 09/17/24 16:00 RBC 3.98 10^6/uL (3.85-5.65) 09/17/24 16:00 Hgb 12.60 g/dL (11.27-16.99) 09/17/24 16:00 Hct 39.0 % (36-47) 09/17/24 16:00 MCV 98.0 fl (85-98) 09/17/24 16:00 MCH 31.7 pg (27-33) 09/17/24 16:00 MCHC 32.3 g/dL (30-55) 09/17/24 16:00 RDW 14.4 % (12.1-15.1) 09/17/24 16:00 Plt Count 227 10^3/cmm (157-399) 09/17/24 16:00 MPV 10.4 fL (7.4-10.4) 09/17/24 16:00 Neut % (Auto) 85.0 % 09/17/24 16:00 Lymph % (Auto) 10.3 % 09/17/24 16:00 [place] % (Auto) 3.1 % 09/17/24 16:00 Eos % (Auto) 0.2 % 09/17/24 16:00 Baso % (Auto) 0.8 % 09/17/24 16:00 Neut # (Auto) 14.15 10^3/uL (1.8-7.7) H 09/17/24 16:00 Lymph # (Auto) 1.7 10^3/uL (0.8-4.8) 09/17/24 16:00 [place] # (Auto) 0.5 10^3/uL (0.2-0.9) 09/17/24 16:00 Eos # (Auto) 0.0 10^3/uL (0.0-0.8) 09/17/24 16:00 Baso # (Auto) 0.1 10^3/uL (0.0-0.1) 09/17/24 16:00 Nucleated RBC % (auto) 0 % 09/17/24 16:00 Nucleated RBCs # 0.0 /100WBC 09/17/24 16:00 Sodium 140 mmol/L (136-145) 09/17/24 16:00 Potassium 4.7 mmol/L (3.5-5.1) 09/17/24 16:00 Chloride 108 mmol/L (98-107) H 09/17/24 16:00 Carbon Dioxide 16 mmol/L (22-29) L 09/17/24 16:00 Anion Gap 20.7 (5-19) H 09/17/24 16:00 BUN 53 mg/dL (8-23) H 09/17/24 16:00 Creatinine 4.4 mg/dL (0.5-0.9) H 09/17/24 16:00 GFR Calculation Not Reportable 09/17/24 16:00 Glucose 144 mg/dL (65-115) H 09/17/24 16:00 Calculated Osmolality 307 mOsm/kg (285-295) H 09/17/24 16:00 Calcium 9.2 mg/dL (8.5-10.5) 09/17/24 16:00 Total Bilirubin 0.3 mg/dL (0.15-1.2) 09/17/24 16:00 AST 15 U/L (0-32) 09/17/24 16:00 ALT 8 U/L (0-33) 09/17/24 16:00 Alkaline Phosphatase 152 U/L (35-105) H 09/17/24 16:00 Total Protein 7.2 g/dL (6.6-8.7) 09/17/24 16:00 Albumin 3.7 g/dL (3.5-5.2) 09/17/24 16:00 Globulin 3.5 g/dL (1.3-4.6) 09/17/24 16:00 All radiology interpretation(s) finalized by discharge Discharge Plan Discharge Admit Provider: Ezio Veras Condition: Stable Coding Level of Care Code ED Goal Umpire for Matt Shin
--- NOTE | 2024-09-17 14:40 | XR_ITS ---
WS: [id number] XR chest 1V portable [id number] REASON FOR EXAM: dyspnea/cough FINDINGS: Moderate tortuosity and ectasia of the thoracic aorta. Normal heart size. Calcified granulomas disease in both hemithoraces. No acute pulmonary parenchymal or pleural findings. XR/XR chest 1V portable [id number] IMPRESSION: No acute chest abnormality.
--- NOTE | 2024-09-17 15:06 | PC.NURSE ---
PER VERBAL ORDER FROM DR. DUNLAP, ORDER AND ADMIN MORPHINE 4MG IVP ONCE AND ZOFRAN 4MG IVP ONCE.
--- NOTE | 2024-09-17 15:08 | ECG_ITS ---
Antuit Test Date: 2024-09-17 Pat Name: Vannessa Ramirez Department: Room: Gender: Female [employer] Analyst: : 1935 Requested By: Chilo Chery Order Number: [id number] Travon MD: Mehrdad Naranjo M.D. Measurements Intervals [place] Rate: 85 P: 95 MS: 197 QRS: -18 QRSD: 92 T: 121 QT: 371 QTc: 444 Interpretive Statements atrial fibrillation with a controlled ventricular response rate VOLTAGE CRITERIA FOR LVH [MEETS CRITERIA IN ONE OF: R(aVL), S(V1), R(V5), R(V5/V6)+S(V1)] POSSIBLE ANTEROSEPTAL MYOCARDIAL INFARCTION , PROBABLY OLD [30 ms Q WAVE IN V1-V4] MODERATE T-WAVE ABNORMALITY, CONSIDER LATERAL ISCHEMIA [-0.1+ mV T-WAVE IN I/aVL/V5/V6] Compared to ECG 06/15/2024 15:15:13 Left ventricular hypertrophy now present Myocardial infarct finding now present Possible ischemia now present T-wave abnormality still present Electronically Signed On 09-19-2024 00:00:[address] by Mehrdad Naranjo M.D. [email or web address]
[2024-09-17] MEDS: ondansetron 2 mg/ML SDV 2 mL 4 MG IVP (15:17)
[2024-09-17] MEDS: morphine 4 mg/mL SDV 1 mL IVP ×3 (15:18→20:23)
[2024-09-17 16:31] LABS: Basophils # 0.1 10^3/uL (0.0-0.1); Basophils % 0.8 %; Eosinophils % 0.2 %; Lymphocytes # 1.7 10^3/uL (0.8-4.8); Lymphocytes % 10.3 %; Mean Corpuscular HGB Conc 32.3 g/dL (30-55); Mean Corpuscular Hemoglobin 31.7 pg (27-33); Mean Platelet Volume 10.4 fL (7.4-10.4); Monocytes # 0.5 10^3/uL (0.2-0.9); Monocytes % 3.1 %; Neutrophils # 14.15 10^3/uL (1.8-7.7); Nucleated Red Blood Cells % 0 %; Platelet Count 227 10^3/cmm (157-399); Red Blood Count 3.98 10^6/uL (3.85-5.65); Red Cell Distribution Width 14.4 % (12.1-15.1); White Blood Count 16.66 10^3/uL (3.29-11.43)
[2024-09-17 16:49] LABS: Alanine Aminotransferase 8 U/L (0-33); Albumin Level 3.7 g/dL (3.5-5.2); Alkaline Phosphatase 152 U/L (35-105); Anion Gap 20.7 (5-19); Aspartate Amino Transferase 15 U/L (0-32); Blood Urea Nitrogen 53 mg/dL (8-23); Calcium 9.2 mg/dL (8.5-10.5); Carbon Dioxide 16 mmol/L (22-29); Chloride 108 mmol/L (98-107); Creatinine Clr Calc Pharmacy 8.7031; Globulin 3.5 g/dL (1.3-4.6); Glucose 144 mg/dL (65-115); Osmolality Calculated 307 mOsm/kg (285-295); Potassium 4.7 mmol/L (3.5-5.1); Sodium 140 mmol/L (136-145); Total Bilirubin 0.3 mg/dL (0.15-1.2); Total Protein 7.2 g/dL (6.6-8.7)
--- NOTE | 2024-09-17 17:00 | P.HP_ITS ---
Providers/Chief Complaint 2 Admitting Physician: Ezio Veras DO Primary Care Provider: Teja Yost MD Chief Complaint: R. arm injury History of Present Illness Vannessa Ramirez is a 88 year old female Medications/Allergies Home Medications Medication Instructions Recorded Confirmed Last Taken Type amlodipine 10 mg tablet 10 mg PO DAILY 06/15/24 09/17/24 06/14/24 History calcitriol 0.25 mcg capsule 0.25 mcg PO .3X WEEKLY 06/15/24 09/17/24 Unknown History furosemide 40 mg tablet 40 mg PO .EVERY OTHER DAY 06/15/24 09/17/24 Unknown History insulin glargine 100 unit/mL (3 60 unit SUBCUT DAILY 06/15/24 09/17/24 Unknown History mL) subcutaneous pen (Lantus Solostar U-100 Insulin) metoprolol tartrate 100 mg tablet 100 mg PO BID 06/15/24 09/17/24 Unknown History pen needle, diabetic 31 gauge x 06/15/24 09/17/24 Unknown History /16 (BD Ultra-Fine Short Pen Needle) sodium bicarbonate 650 mg tablet 650 mg PO TID 06/15/24 09/17/24 Unknown History hydralazine 25 mg tablet 25 mg PO BID #60 tabs 06/16/24 09/17/24 Unknown Rx pantoprazole 40 mg tablet,delayed 40 mg PO BID 09/17/24 09/17/24 Unknown History release Allergies Allergy/AdvReac Type Severity Reaction Status Date / Time Penicillins Allergy ALGY-Hives Verified 09/17/24 13:07 PFSH Acute 2 PFSH: Medical History (Updated 09/18/24 @ 11:20 by Ezio Veras DO) Acute kidney injury superimposed on chronic kidney disease JANELLE (acute kidney injury) Diabetes Atypical chest pain Hyperkalemia CHF (congestive heart failure) Vitals/I&O/Wt Last Vital Signs Temp 97.8 F 09/18/24 08:00 Pulse 78 09/18/24 08:00 Resp 16 09/18/24 08:00 BP 174/76 09/18/24 08:00 Pulse Ox 96 09/18/24 08:00 O2 Del Method Room Air 09/18/24 08:00 09/17/24 09/18/24 09/18/24 22:59 06:59 14:59 Intake Total 885 / 885 940 / 940 Balance 885 / 885 940 / 940 Weight last 48 hrs Weight 51.755 kg Weight 78.018 kg Weight 78.471 kg Data 09/18/24 05:50 09/18/24 05:50 Coding Level of Care Code Acute Code for Chg Fwd
[2024-09-17 17:35] LABS: Bilirubin Urine Negative (Negative); Blood Urine 1+ (Negative); Glucose Urine UA 1+ (Normal); Ketones Urine Trace (Negative); Leukocyte Esterase Urine Negative (Negative); Nitrate Urine Negative (Negative); Protein Urine 4+ (Negative); Specific Gravity, Urine 1.029 (1.005-1.030); Urine Appearance Clear (CLEAR); Urine Color Yellow (Yellow); Urobilinogen Urine 0.2 mg/dL (Negative)
[2024-09-17 17:40] LABS: Add Urine Microscopic? YES; Bacteria Urine None Seen /hpf; Hyaline Casts Urine 7.42 /lpf; RBC Urine 0-2 /hpf (0-2); Squamous Epithelial Cell Urine 0-5 /hpf (0-5); WBC Urine 0-5 /hpf (0-5)
--- NOTE | 2024-09-17 18:00 | P.HP_ITS ---
Providers/Chief Complaint 2 Admitting Physician: Ezio Veras DO Primary Care Provider: Teja Yost MD Chief Complaint: R. arm injury History of Present Illness Vannessa Ramirez is a 88 year old female presents to the ER status post mechanical fall. She was found to have a right humerus fracture. Orthopedics was consulted and felt that the patient will require surgery and thus patient was admitted. It should also be noted that the patient was in acute on chronic renal failure. Review of Systems 2 Const: Denies: fever(s) or chills Eyes: Denies: change in vision ENMT: Denies: throat pain or nasal congestion Card: Denies: chest pain or palpitations Resp: Denies: dyspnea or productive cough GI: Denies: abdominal pain, nausea, vomiting or change in stool character : Denies: dysuria Musc: Denies: back pain or extremity pain Skin/Breast: Denies: rash or lesions Neuro: Denies: headache(s) or dizziness Psych: Denies: anxiety or depression Prudencio/Lymph: Denies: easy bruising or easy bleeding Medications/Allergies Home Medications Medication Instructions Recorded Confirmed Last Taken Type amlodipine 10 mg tablet 10 mg PO DAILY 06/15/24 09/17/24 06/14/24 History calcitriol 0.25 mcg capsule 0.25 mcg PO .3X WEEKLY 06/15/24 09/17/24 Unknown History furosemide 40 mg tablet 40 mg PO .EVERY OTHER DAY 06/15/24 09/17/24 Unknown History insulin glargine 100 unit/mL (3 60 unit SUBCUT DAILY 06/15/24 09/17/24 Unknown History mL) subcutaneous pen (Lantus Solostar U-100 Insulin) metoprolol tartrate 100 mg tablet 100 mg PO BID 06/15/24 09/17/24 Unknown History pen needle, diabetic 31 gauge x 06/15/24 09/17/24 Unknown History 5/16 (BD Ultra-Fine Short Pen Needle) sodium bicarbonate 650 mg tablet 650 mg PO TID 06/15/24 09/17/24 Unknown History hydralazine 25 mg tablet 25 mg PO BID #60 tabs 06/16/24 09/17/24 Unknown Rx pantoprazole 40 mg tablet,delayed 40 mg PO BID 09/17/24 09/17/24 Unknown History release Allergies Allergy/AdvReac Type Severity Reaction Status Date / Time Penicillins Allergy ALGY-Hives Verified 09/17/24 13:07 PFSH Acute 2 PFSH: Medical History Acute kidney injury superimposed on chronic kidney disease JANELLE (acute kidney injury) Diabetes Atypical chest pain Hyperkalemia CHF (congestive heart failure) Vitals/I&O/Wt Last Vital Signs Temp 97.8 F 09/18/24 08:00 Pulse 78 09/18/24 08:00 Resp 16 09/18/24 08:00 BP 174/76 09/18/24 08:00 Pulse Ox 96 09/18/24 08:00 O2 Del Method Room Air 09/18/24 08:00 09/17/24 09/18/24 09/18/24 22:59 06:59 14:59 Intake Total 885 / 885 940 / 940 Balance 885 / 885 940 / 940 Weight last 48 hrs Weight 51.755 kg Weight 78.018 kg Weight 78.471 kg Physical Exam 2 Narrative: No acute distress at time of exam Neuro alert and oriented to person place time and situation nonfocal exam HEENT head is normocephalic atraumatic pupils equal round reactive to light and accommodation extraocular muscles are intact there is no scleral icterus Neck is supple no JVD carotid bruits lymphadenopathy Heart is regular normal S1-S2 without murmurs clicks gallops or rubs Lungs are clear to auscultation without wheezes rales or rhonchi Abdomen is obese soft nontender nondistended positive bowel sounds no hepatosplenomegaly Extremities mild nonpitting edema bilateral extremities. Right arm in a splint Psych mood and affect are appropriate for condition Skin no rashes or lesions noted Data 09/18/24 05:50 09/18/24 05:50 A&P Assessment and plan (1) Humerus shaft fracture: Per orthopedics Qualifiers: Encounter type: initial encounter Fracture type: closed Fracture morphology: spiral Fracture alignment: displaced Laterality: right Qualified Code(s): S42.341A - Displaced spiral fracture of shaft of humerus, right arm, initial encounter for closed fracture (2) Acute kidney injury superimposed on chronic kidney disease: Will give hydration overnight (3) Diabetes: Hold home Lantus dose as patient will be n.p.o. after midnight for possible surgery Will order sliding scale insulin (4) Hypertension: Continue home medications Attestations 2 Medical Necessity Statement*: Patient is admitted for right shoulder fracture with need for surgical repair. Patient is also in acute on chronic renal failure and requiring IV hydration and further workup. Coding Level of Care Code Acute Code for Chg Fwd Diagnoses Closed displaced spiral fracture of shaft of right humerus, initial encounter S42.341A Encounter type: initial encounter Fracture type: closed Fracture morphology: spiral Fracture alignment: displaced Laterality: right Acute kidney injury superimposed on chronic kidney disease N17.9; N18.9 Diabetes E11.9 Hypertension I10
[2024-09-17] MEDS: sodium chloride 0.9% 1,000 ML 150 ML IV (20:24)
[2024-09-17 21:49] LABS: Glucose Point of Care 215 mg/dL (70-110)
[2024-09-17] MEDS: sodium bicarbonate 650 mg Tablet PO (22:00)
[2024-09-17] MEDS: insulin lispro 100 unit/1 mL SUBCUT (22:01)
[2024-09-17] MEDS: calcitriol 0.25 mcg Capsule PO (22:48)
[2024-09-17] MEDS: HYDROcodone-acetaminophen 5-325 mg Tablet 1 TAB PO (23:56)
[2024-09-18 00:28] LABS: Glucose Point of Care 130 mg/dL (70-110)
[2024-09-18] MEDS: sodium chloride 0.9% 1,000 ML 150 ML IV ×2 (02:18→08:34)
[2024-09-18 03:23] VITALS: BP 158/68; PULSE 80; RESP 16; TEMP 36.4; O2SAT 95
[2024-09-18 06:12] LABS: Basophils # 0.1 10^3/uL (0.0-0.1); Basophils % 0.6 %; Eosinophils % 0.1 %; Lymphocytes # 2.4 10^3/uL (0.8-4.8); Lymphocytes % 24.6 %; Mean Corpuscular HGB Conc 31.4 g/dL (30-55); Mean Corpuscular Hemoglobin 30.3 pg (27-33); Mean Corpuscular Volume 96.4 fl (85-98); Mean Platelet Volume 10.6 fL (7.4-10.4); Monocytes # 0.7 10^3/uL (0.2-0.9); Monocytes % 7.2 %; Neutrophils # 6.38 10^3/uL (1.8-7.7); Nucleated Red Blood Cells % 0 %; Platelet Count 175 10^3/cmm (157-399); Red Blood Count 3.63 10^6/uL (3.85-5.65); Red Cell Distribution Width 14.3 % (12.1-15.1); White Blood Count 9.54 10^3/uL (3.29-11.43)
[2024-09-18 06:34] LABS: Anion Gap 18.4 (5-19); Blood Urea Nitrogen 49 mg/dL (8-23); Calcium 8.5 mg/dL (8.5-10.5); Carbon Dioxide 15 mmol/L (22-29); Chloride 109 mmol/L (98-107); Creatinine Clr Calc Pharmacy 6.9958; Glucose 119 mg/dL (65-115); Osmolality Calculated 298 mOsm/kg (285-295); Potassium 5.4 mmol/L (3.5-5.1); Sodium 137 mmol/L (136-145)
[2024-09-18 06:35] LABS: Glucose Point of Care 119 mg/dL (70-110)
[2024-09-18] MEDS: HYDROcodone-acetaminophen 5-325 mg Tablet 1 TAB PO ×3 (06:50→17:18)
[2024-09-18 08:00] VITALS: BP 174/76; PULSE 78; RESP 16; TEMP 36.6; O2SAT 96
--- NOTE | 2024-09-18 08:17 | CT_ITS ---
WS: [id number] NONCONTRAST CT RIGHT SHOULDER TECHNIQUE: Noncontrast CT RIGHT shoulder with coronal and sagittal reformatted images. CLINICAL INFORMATION: fracture COMPARISON: Radiograph 09/17/2024 DLP: 331.[address] scans at [facility] use at least one of these dose optimization techniques: automated e xposure control; mA and/or kV adjustment per patient size (includes targeted exams where dose is matc hed to clinical indication); or iterative reconstruction. FINDINGS: Previously described mid to distal third known humerus fracture not included on this examination. Thi s is seen at the edge of the [id number] and on the container repairer imaging with overriding fracture fragment s. Osteopenia. Moderate arthritis AC joint. Moderate downsloping acromion. Narrowing of the subacromial space. No dislocation. Glenoid appears normal. Normal coracoid. Subchondral cystic change involving t he greater tuberosity. Calcific tendinitis involving the rotator cuff. Partially visualized RIGHT johana g is well aerated. Mild interstitial thickening. A few tiny subpleural nodules at the RIGHT lung apex . No RIGHT axillary lymphadenopathy. Distal clavicle is normal in appearance. Normal scapula. CT/CT shoulder RT wo con* [id number] IMPRESSION: 1. Previously described mid to distal third known humerus fracture not include d on this examination. This is seen at the edge of the sauzb-[id number] and on the container repairer imaging with overriding fracture fragments. 2. No shoulder or humeral head fractures.
--- NOTE | 2024-09-18 08:19 | P.CONIM_ITS ---
Providers/Reason For Consult 2 Consulting Physician/Specialty*: Hospitalist Reason for Consult*: Right humerus fracture Attending Physician: Ezio eVras DO Primary Care Provider: Teja Yost MD History of Present Illness History of Present Illness Vannessa Ramirez is a 88 year old female ground-level mechanical fall at home. She landed on an outstretched right arm has an obvious deformity. She denies any other injury Review of Systems 2 Const: Denies: fever(s) or chills Card: Denies: chest pain Resp: Denies: dyspnea GI: Denies: abdominal pain : Denies: dysuria, urinary frequency or urinary urgency Musc: Reports: extremity pain; Denies: neck pain or back pain Skin/Breast: Denies: rash Medications/Allergies Home Medications Medication Instructions Recorded Confirmed Last Taken Type amlodipine 10 mg tablet 10 mg PO DAILY 06/15/24 09/17/24 06/14/24 History calcitriol 0.25 mcg capsule 0.25 mcg PO .3X WEEKLY 06/15/24 09/17/24 Unknown History furosemide 40 mg tablet 40 mg PO .EVERY OTHER DAY 06/15/24 09/17/24 Unknown History insulin glargine 100 unit/mL (3 60 unit SUBCUT DAILY 06/15/24 09/17/24 Unknown History mL) subcutaneous pen (Lantus Solostar U-100 Insulin) metoprolol tartrate 100 mg tablet 100 mg PO BID 06/15/24 09/17/24 Unknown History pen needle, diabetic 31 gauge x 06/15/24 09/17/24 Unknown History 5/16 (BD Ultra-Fine Short Pen Needle) sodium bicarbonate 650 mg tablet 650 mg PO TID 06/15/24 09/17/24 Unknown History hydralazine 25 mg tablet 25 mg PO BID #60 tabs 06/16/24 09/17/24 Unknown Rx pantoprazole 40 mg tablet,delayed 40 mg PO BID 09/17/24 09/17/24 Unknown History release Allergies Allergy/AdvReac Type Severity Reaction Status Date / Time Penicillins Allergy ALGY-Hives Verified 09/17/24 13:07 Current Medications Generic Name Dose Route Start Last Admin Trade Name Freq PRN Reason Stop Dose Admin Hydrocodone Bitart/Acetaminophen 1 tab 09/17/24 19:07 09/18/24 06:50 Hydrocodone-Acetaminophen 5-325 Mg Tablet PO 1 tab Q4H PRN Administration MODERATE TO SEVERE PAIN Calcitriol 0.25 mcg 09/17/24 22:00 09/17/24 22:48 Calcitriol 0.25 Mcg Capsule PO 0.25 mcg MoWeFr XIMENA Administration Sodium Chloride 1,000 mls @ 150 mls/hr 09/17/24 19:15 09/18/24 02:18 Sodium Chloride 0.9% IV 150 mls/hr .Q6H40M XIMENA Administration Insulin Human Lispro 0 unit 09/17/24 21:00 09/18/24 07:52 Insulin Lispro 100 Unit/1 Ml SUBCUT Not Given WM&BEDTIME XIMENA Protocol Morphine Sulfate 4 mg 09/17/24 18:05 09/17/24 20:23 Morphine 4 Mg/Ml Sdv 1 Ml IVP 4 mg Q4H PRN Administration SEVERE PAIN Sodium Bicarbonate 650 mg 09/17/24 21:00 09/17/24 22:00 Sodium Bicarbonate 650 Mg Tablet PO 650 mg TID XIMENA Administration PFSH Acute 2 PFSH: Medical History Atypical chest pain Acute kidney injury superimposed on chronic kidney disease JANELLE (acute kidney injury) Hyperkalemia Diabetes CHF (congestive heart failure) Vitals/I&O/Wt Last Vital Signs Temp 97.6 F 09/18/24 03:23 Pulse 80 09/18/24 03:23 Resp 16 09/18/24 03:23 BP 158/68 09/18/24 03:23 Pulse Ox 95 09/18/24 03:23 O2 Del Method Room Air 09/18/24 03:23 09/17/24 09/18/24 09/18/24 22:59 06:59 14:59 Intake Total 885 / 885 Balance 885 / 885 Weight last 48 hrs Weight 114 lb 1.6 oz Weight 172 lb Weight 173 lb Physical Exam 2 Narrative: Alert and oriented x 3 Head is normocephalic atraumatic Respirations are intact No evidence of any rashes or infection 5/5 strength in bilateral upper and lowe r extremities Sensation intact in all extremities Deep tendon reflexes 2 out of 4 bilateral upper and lower extremities Radial nerves intact on the right side. Currently in a splint. Data 09/18/24 05:50 01/14/25 05:50 A&P Assessment and plan (1) Humerus shaft fracture: There is question of whether there is a possible humerus fracture as well as get a CT scan of the right humerus. Did discuss with her surgical option versus not operative option. Will get a CT scan first and discussed with her this afternoon to see if she wants to proceed with surgery. Surgery would not be until tomorrow. Qualifiers: Encounter type: initial encounter Fracture type: closed Fracture morphology: spiral Fracture alignment: displaced Laterality: right Qualified Code(s): S42.341A - Displaced spiral fracture of shaft of humerus, right arm, initial encounter for closed fracture Consult Attestations 2 Medical Necessity Statement: Per primary service Coding Level of Care Code Acute Code for Chg Fwd Diagnoses Closed displaced spiral fracture of shaft of right humerus, initial encounter S42.341A Encounter type: initial encounter Fracture type: closed Fracture morphology: spiral Fracture alignment: displaced Laterality: right
[2024-09-18] MEDS: metoprolol tartrate 50 mg Tablet 100 MG PO ×2 (08:35→17:18)
[2024-09-18] MEDS: amlodipine 10 mg Tablet PO (08:35)
[2024-09-18] MEDS: hyDRALAzine 25 mg Tablet PO ×2 (08:35→17:18)
[2024-09-18] MEDS: sodium bicarbonate 650 mg Tablet PO ×3 (08:35→21:09)
--- NOTE | 2024-09-18 09:44 | PC.CHAP ---
Pastoral Care Encounter/Spiritual Assessment Type of Contact [] Declined donor center technician visit [] Patient/Family/Request visit [] Outpatient visit [] Follow-up visit [] Physician referral [] Code/Alert [x] Routine visit [] Staff referral [] Actively dying [] Patient sleeping [] Family support [] [] Out of room [] Palliative care [] [] Receiving care in room [] Pre-surgical visit [] Trauma [] Long length of stay [] ICU visit [] Other: Relational/Emotional Strength [x] Patient feels connected with others/family/visitors/staff [] Distress [] Loneliness/isolation [] Abandonment Spirituality of Patient [x] Person of Christa [] Attends Congregational of their Christa [x] Believes in Prayer [] Reads Bible or Adventist materials [] There are Spiritual issues to be addressed Physical Therapy Coordinator Interventions [x] Prayer [x] Active listening [x] Non-anxious presence [x] Spiritual/emotional support [] Crisis/trauma care [] Spiritual counseling [] Bereavement support [] Provided bereavement packet [] Provided Bible/devotional materials [] Provided toy/stuffed animal, coloring book to patient or family member [] Provided Communion [] Anointing/[place] [] Salvation [x] Completed spiritual assessment [] Other: Impact on Illness or Injury [] Angry [] Fearful [] Anxious [] Often cries [] Exhaustion [] Unable to work [] Unable to attend christian [] Unable to walk/stand [] Unable to read [] Unable to drive [] Unable to eat/drink [] Unable to sleep [] Unable to be with family [] Patient intubated [] Other: Summary Time spent with patient 5 min
[2024-09-18] MEDS: ondansetron 2 mg/ML SDV 2 mL 4 MG IVP ×2 (09:50→16:17)
--- NOTE | 2024-09-18 11:18 | P.PN_ITS ---
Subjective 2 Subjective: Patient denies any pain at this time She reports nausea. She does not carry history of having nausea. She states the nausea is worse when she tries to eat or drink. She has received Zofran and for me she was able to drink without symptoms. Vitals/I&O/Wt Last Vital Signs Temp 97.8 F 09/18/24 08:00 Pulse 78 09/18/24 08:00 Resp 16 09/18/24 08:00 BP 174/76 09/18/24 08:00 Pulse Ox 96 09/18/24 08:00 O2 Del Method Room Air 09/18/24 08:00 09/17/24 09/18/24 09/18/24 22:59 06:59 14:59 Intake Total 885 / 885 940 / 940 Balance 885 / 885 940 / 940 Weight last 48 hrs Weight 51.755 kg Weight 78.018 kg Weight 78.471 kg Physical Exam 2 Narrative: Appears to be in mild discomfort due to feeling nauseous. Heart regular normal S1-S2 without murmurs clicks gallops or rubs lungs clear to auscultation without wheezes rales or rhonchi abdomen soft obese nontender nondistended positive bowel sounds extremities mild nonpitting edema in the lower extremities right arm in splint Data 09/18/24 05:50 09/18/24 05:50 A&P Assessment and plan (1) Humerus shaft fracture: Qualifiers: Encounter type: initial encounter Fracture type: closed Fracture morphology: spiral Fracture alignment: displaced Laterality: right Qualified Code(s): S42.341A - Displaced spiral fracture of shaft of humerus, right arm, initial encounter for closed fracture (2) Acute kidney injury superimposed on chronic kidney disease: (3) Diabetes: Plan Acute on chronic renal failure. We have a creatinine of approximately 2.6 from June 2024. Now she is approximately 4.4. She is receiving hydration without significant improvement at this time. Will reevaluate home medications and adjust accordingly. Nausea may be coming from uremia from acute kidney injury. Had change from PPI to Pepcid and will give IV Consider Reglan at renal dose of 5 mg every 6 hours as needed. I will hold and attempt Pepcid only at this time. Note PPIs have been known to cause renal failure in the past and may contribute to worsening renal failure thus will hold as above Hypertension patient is not controlled at this time it is likely a combination of pain acute kidney disease and medication Acute humerus fracture. Orthopedics managing planning on surgery tomorrow. Attestations 2 Medical Necessity Statement*: Patient with acute humerus fracture and acute on chronic renal failure. Patient will cross 2 midnights to address both of these including surgery as well as medical treatment of the renal failure Coding Level of Care Code Acute Code for [facility] Fwd Diagnoses Closed displaced spiral fracture of shaft of right humerus, initial encounter S42.341A Encounter type: initial encounter Fracture type: closed Fracture morphology: spiral Fracture alignment: displaced Laterality: right Acute kidney injury superimposed on chronic kidney disease N17.9; N18.9 Diabetes E11.9
[2024-09-18 11:37] LABS: Glucose Point of Care 156 mg/dL (70-110)
[2024-09-18 11:45] VITALS: BP 159/79; PULSE 62; RESP 17; TEMP 36.4; O2SAT 95
[2024-09-18] MEDS: famotidine 20 mg/2 mL INJ IVP ×2 (12:07→22:36)
[2024-09-18 14:12] LABS: Anion Gap 15.9 (5-19); Blood Urea Nitrogen 50 mg/dL (8-23); Calcium 8.5 mg/dL (8.5-10.5); Carbon Dioxide 17 mmol/L (22-29); Chloride 104 mmol/L (98-107); Creatinine Clr Calc Pharmacy 7.1548; Glucose 203 mg/dL (65-115); Osmolality Calculated 293 mOsm/kg (285-295); Potassium 4.9 mmol/L (3.5-5.1); Sodium 132 mmol/L (136-145)
[2024-09-18] MEDS: metoclopramide 5 mg/mL SDV 2 mL IVP (15:00)
[2024-09-18 16:00] VITALS: BP 160/75; PULSE 64; RESP 16; TEMP 36.6; O2SAT 94
[2024-09-18] MEDS: acetaminophen 325 mg Tablet 650 MG PO ×2 (16:17→22:35)
[2024-09-18 17:13] LABS: Glucose Point of Care 293 mg/dL (70-110)
[2024-09-18] MEDS: docusate sodium 100 mg Capsule PO (17:18)
[2024-09-18] MEDS: insulin lispro 100 unit/1 mL SUBCUT ×2 (17:18→21:13)
[2024-09-18 20:00] VITALS: BP 146/78; PULSE 71; RESP 16; TEMP 36.7; O2SAT 96
[2024-09-18 20:41] LABS: Glucose Point of Care 142 mg/dL (70-110)
[2024-09-18] MEDS: heparin 5,000 unit/mL INJ 1 mL 5000 UNIT SUBCUT (21:09)
[2024-09-19] VITALS (7 sets, daily range): BP systolic 130–173; BP diastolic 49–78; PULSE 56–69; RESP 15–18; TEMP 36.3–36.8; O2SAT 93–96
[2024-09-19] MEDS: ondansetron 2 mg/ML SDV 2 mL 4 MG IVP (05:35)
[2024-09-19 06:04] LABS: Anion Gap 20.1 (5-19); Blood Urea Nitrogen 51 mg/dL (8-23); Calcium 8.3 mg/dL (8.5-10.5); Carbon Dioxide 15 mmol/L (22-29); Chloride 109 mmol/L (98-107); Creatinine Clr Calc Pharmacy 7.1679; Glucose 150 mg/dL (65-115); Osmolality Calculated 305 mOsm/kg (285-295); Potassium 5.1 mmol/L (3.5-5.1); Sodium 139 mmol/L (136-145)
[2024-09-19] MEDS: metoclopramide 5 mg/mL SDV 2 mL IVP (06:10)
[2024-09-19 06:17] LABS: Glucose Point of Care 133 mg/dL (70-110)
[2024-09-19] MEDS: heparin 5,000 unit/mL INJ 1 mL 5000 UNIT SUBCUT ×2 (07:06→18:38)
[2024-09-19] MEDS: HYDROcodone-acetaminophen 5-325 mg Tablet 1 TAB PO ×3 (07:06→22:35)
[2024-09-19] MEDS: hyDRALAzine 25 mg Tablet PO ×2 (08:59→17:51)
[2024-09-19] MEDS: metoprolol tartrate 50 mg Tablet 100 MG PO ×2 (08:59→17:51)
[2024-09-19] MEDS: docusate sodium 100 mg Capsule PO ×2 (08:59→17:51)
[2024-09-19] MEDS: amlodipine 10 mg Tablet PO (08:59)
[2024-09-19] MEDS: sodium bicarbonate 650 mg Tablet PO ×3 (08:59→20:29)
[2024-09-19] MEDS: sodium chloride 0.9% 1,000 ML 75 ML IV ×2 (09:08→20:31)
--- NOTE | 2024-09-19 09:59 | PC.SOCIAL ---
IMM Update pg 2 of IMM Updated and reviewed w/ patient. Copy provided and copy dated, initialed and placed in chart.
[2024-09-19 10:45] LABS: Glucose Point of Care 282 mg/dL (70-110)
[2024-09-19] MEDS: insulin lispro 100 unit/1 mL SUBCUT (11:25)
[2024-09-19] MEDS: lidocaine 5% Patch 1 PATCH TOPICAL (11:25)
[2024-09-19] MEDS: famotidine 20 mg/2 mL INJ IVP ×2 (11:26→22:35)
--- NOTE | 2024-09-19 14:35 | PM.PN ---
Subjective Subjective: She states overall she is feeling okay. Intermittently having pain in her right arm. About to have a brace fitted. Vitals/I&O/Wt Last Vital Signs Temp 97.4 F L 09/19/24 11:40 Pulse 56 L 09/19/24 11:40 Resp 17 09/19/24 11:40 BP 160/49 09/19/24 11:40 Pulse Ox 95 09/19/24 11:40 O2 Del Method Room Air 09/19/24 11:40 09/18/24 09/19/24 09/19/24 22:59 06:59 14:59 Intake Total 1600 / 2660 240 / 240 Output Total 400 / 700 200 / 200 Balance 1600 / 2360 -400 / 1960 40 / 40 Weight last 48 hrs Weight 51.982 kg Weight 51.755 kg Weight 78.018 kg Physical Exam Const: COMMON NORMALS: patient oriented x3 and alert GENERAL APPEARANCE: cooperative ORIENTATION/CONSCIOUSNESS: Yes awake HENMT: COMMON NORMALS: oropharynx normal Neck/C-Spine: COMMON NORMALS: no JVD Resp: COMMON NORMALS: normal respiratory effort and clear to auscultation bilaterally AUSCULTATION: clear to auscultation bilaterally Cardio: COMMON NORMALS: no JVD, regular rhythm, S1 normal heart sound present, S2 normal heart sound present and No murmurs present (Cardio) RHYTHM: regular rhythm HEART SOUNDS: S1 normal heart sound present and S2 normal heart sound present GI: COMMON NORMALS: Normal to inspection, nondistended, normoactive bowel sounds present, Soft to palpation and non-tender PALPATION: Yes Soft to palpation Extremity: COMMON NORMALS: no joint enlargement and no pedal edema Neuro: COMMON NORMALS: patient oriented x3 and moves all extremities SENSORIUM/ORIENTATION: Yes alert Skin: COMMON NORMALS: no rashes or lesions noted GENERAL SKIN EXAM: no rashes or lesions noted Data 09/18/24 05:50 09/19/24 05:05 A&P Assessment and plan (1) Humerus shaft fracture: Discussed with occupational therapist. Being fitted with a brace. Depending on reassessment consideration of possible surgical repair on Tuesday. Add lidocaine patch for pain. Continue hydrocodone as needed. Monitor for risk of medication toxicity in the setting of JANELLE. Discussed with director of casework services. Discussed with nursing. Qualifiers: Encounter type: initial encounter Fracture type: closed Fracture morphology: spiral Fracture alignment: displaced Laterality: right Qualified Code(s): S42.341A - Displaced spiral fracture of shaft of humerus, right arm, initial encounter for closed fracture (2) Acute kidney injury superimposed on chronic kidney disease: Reviewed BUN, creatinine, anion gap, bicarb. Potassium. She does take ibuprofen a few times a week. Possibly ATN as so far renal function has not improved. Discussed with her avoidance of NSAIDs. Reviewed UA, noted hyaline casts. Continue gentle IV hydration for now with possible component of dehydration. Monitor for risk of fluid overload. Has been taken off PPI. Repeat chemistry requested. (3) Diabetes: Surgery deferred for now. Will resume Lantus at reduced dose of 20 units. Monitor for risk of hypoglycemia with JANELLE. Reviewed POC glucose. Continue sliding scale insulin (4) Hypertension: Continue home medications Attestations Medical Necessity Statement*: Continue admission for assessment and management of acute kidney injury, right humeral fracture in a lady of advanced age with additional comorbidities as above. and High MDM includes amount and/or complexity of data reviewed/ordered [ resulted lab(s)/test(s), ordered lab(s)/test(s) and other healthcare professional discussion] and described risk of complication, morbidity or mortality of management as documented Diagnoses Closed displaced spiral fracture of shaft of right humerus, initial encounter S42.341A Encounter type: initial encounter Fracture type: closed Fracture morphology: spiral Fracture alignment: displaced Laterality: right Acute kidney injury superimposed on chronic kidney disease N17.9; N18.9 Diabetes E11.9 Hypertension I10
[2024-09-19] MEDS: insulin glargine 100 units/1 mL 20 UNIT SUBCUT (16:23)
[2024-09-19 16:52] LABS: Glucose Point of Care 95 mg/dL (70-110)
--- NOTE | 2024-09-19 18:30 | PM.PN ---
Subjective Subjective: Patient procedure and coaptation brace. At this point still planning on surgery Tuesday. Will check some x-rays in the brace just to check the alignment. Vitals/I&O/Wt Last Vital Signs Temp 98.0 F 09/19/24 15:20 Pulse 59 L 09/19/24 15:20 Resp 16 09/19/24 15:20 BP 149/67 09/19/24 15:20 Pulse Ox 95 09/19/24 15:20 O2 Del Method Room Air 09/19/24 15:20 09/19/24 09/19/24 09/19/24 06:59 14:59 22:59 Intake Total 240 / 240 Output Total 400 / 700 200 / 200 Balance -400 / 1960 40 / 40 Weight last 48 hrs Weight 114 lb 9.6 oz Weight 114 lb 1.6 oz Weight 172 lb Physical Exam Narrative: Radial nerve still intact. Patient is able to extend the wrist. Sensation intact Data 09/18/24 05:50 09/19/24 05:05 A&P Assessment and plan (1) Humerus shaft fracture: Will check x-rays of the right humerus. Also planning on surgery on Tuesday. Qualifiers: Encounter type: initial encounter Fracture type: closed Fracture morphology: spiral Fracture alignment: displaced Laterality: right Qualified Code(s): S42.341A - Displaced spiral fracture of shaft of humerus, right arm, initial encounter for closed fracture Attestations Medical Necessity Statement*: Per primary service Coding Level of Care Code Acute Code for [facility] Fwd Diagnoses Closed displaced spiral fracture of shaft of right humerus, initial encounter S42.341A Encounter type: initial encounter Fracture type: closed Fracture morphology: spiral Fracture alignment: displaced Laterality: right
--- NOTE | 2024-09-19 18:31 | XRR_ITS ---
PROCEDURE INFORMATION: Exam: XR Right Humerus Exam date and time: 09/19/2024 10:27 PM Age: 88 years old Clinical indication: Screening exam; Preoperative imaging; Additional info: Fracture and change her brace TECHNIQUE: Imaging protocol: Radiologic exam of the right humerus. Views: 2 or more views. COMPARISON: No relevant prior studies available. FINDINGS: Tubes, catheters and devices: A splint is seen in place. Bones/joints: The right humerus maintains anatomic alignment at the shoulder and elbow joints. There is a complete oblique fracture through the mid humeral diaphysis with lateral angulation at the fracture site, rotation and overriding. Soft tissues: The soft tissue swelling. No radiopaque foreign bodies in the soft tissues. XR/[place] [id number] IMPRESSION: A complete oblique fracture through the mid humeral diaphysis with lateral angulation at the fracture site, rotation and overriding.
[2024-09-19] MEDS: calcitriol 0.25 mcg Capsule PO (20:29)
[2024-09-19 21:03] LABS: Glucose Point of Care 105 mg/dL (70-110)
[2024-09-20 03:20] VITALS: BP 151/65; PULSE 64; RESP 17; TEMP 36.6; O2SAT 94
[2024-09-20 05:55] LABS: Anion Gap 17.5 (5-19); Blood Urea Nitrogen 49 mg/dL (8-23); Carbon Dioxide 16 mmol/L (22-29); Chloride 106 mmol/L (98-107); Creatinine Clr Calc Pharmacy 7.4353; Glucose 66 mg/dL (65-115); Osmolality Calculated 291 mOsm/kg (285-295); Potassium 4.5 mmol/L (3.5-5.1); Sodium 135 mmol/L (136-145)
[2024-09-20 06:38] LABS: Glucose Point of Care 62 mg/dL (70-110)
[2024-09-20 07:55] VITALS: BP 164/75; PULSE 65; RESP 17; TEMP 36.6; O2SAT 94
[2024-09-20] MEDS: hyDRALAzine 25 mg Tablet PO ×2 (08:21→19:46)
[2024-09-20] MEDS: amlodipine 10 mg Tablet PO (08:21)
[2024-09-20] MEDS: sodium bicarbonate 650 mg Tablet PO ×2 (08:21→22:05)
[2024-09-20] MEDS: heparin 5,000 unit/mL INJ 1 mL 5000 UNIT SUBCUT ×2 (08:21→19:46)
[2024-09-20] MEDS: docusate sodium 100 mg Capsule PO ×2 (08:21→19:46)
[2024-09-20] MEDS: metoprolol tartrate 50 mg Tablet 100 MG PO ×2 (08:21→19:46)
[2024-09-20] MEDS: ondansetron 2 mg/ML SDV 2 mL 4 MG IVP (09:24)
[2024-09-20] MEDS: insulin glargine 100 units/1 mL 20 UNIT SUBCUT (09:24)
[2024-09-20] MEDS: lidocaine 5% Patch 1 PATCH TOPICAL (09:24)
[2024-09-20 09:25] LABS: Glucose Point of Care 121 mg/dL (70-110)
[2024-09-20] MEDS: sodium chloride 0.9% 1,000 ML 75 ML IV (10:21)
[2024-09-20 11:24] LABS: Glucose Point of Care 99 mg/dL (70-110)
--- NOTE | 2024-09-20 11:25 | P.PN_ITS ---
Subjective 2 Subjective: Patient is doing well no complaints. Vitals/I&O/Wt Last Vital Signs Temp 97.8 F 09/20/24 07:55 Pulse 65 09/20/24 07:55 Resp 17 09/20/24 07:55 BP 164/75 09/20/24 07:55 Pulse Ox 94 09/20/24 07:55 O2 Del Method Room Air 09/20/24 07:55 09/19/24 09/20/24 09/20/24 22:59 06:59 14:59 Intake Total 1603.75 / 1843.75 50 / 1893.75 1480 / 1480 Output Total 300 / 500 600 / 600 Balance 1303.75 / 1343.75 50 / 1393.75 880 / 880 Weight last 48 hrs Weight 131 lb 3.2 oz Weight 114 lb 9.6 oz Physical Exam 2 Narrative: Radial nerve still intact plan on surgery tomorrow. Data 09/18/24 05:50 09/20/24 05:22 A&P Assessment and plan (1) Humerus shaft fracture: Plan on surgery in morning right intramedullary nail. I had an open and honest discussion with the patient about the risks, benefits and alternatives to both surgical and nonsurgical treatment. The patient verbalized understanding of the inherent unpredictability associated with surgery. Risk of surgery were discussed including, but not limited to, infection, bleeding, temporary and permanent nerve damage, continued pain, stiffness, incomplete healing, need for revision surgery, blood clot and other complications. The patient verbalized understanding that there is spine is elective in nature and if they find any of these risks to be unacceptable then they should choose not to have the surgery. The patient verbalized understanding of these risks and elected to proceed with the surgery. Qualifiers: Encounter type: initial encounter Fracture type: closed Fracture morphology: spiral Fracture alignment: displaced Laterality: right Qualified Code(s): S42.341A - Displaced spiral fracture of shaft of humerus, right arm, initial encounter for closed fracture Attestations 2 Medical Necessity Statement*: Pain control Coding Level of Care Code Acute Code for Chg Fwd Diagnoses Closed displaced spiral fracture of shaft of right humerus, initial encounter S42.341A Encounter type: initial encounter Fracture type: closed Fracture morphology: spiral Fracture alignment: displaced Laterality: right
[2024-09-20 12:10] VITALS: BP 144/86; PULSE 65; RESP 18; TEMP 36.4; O2SAT 93
[2024-09-20] MEDS: famotidine 20 mg/2 mL INJ IVP ×2 (12:16→23:26)
[2024-09-20] MEDS: HYDROcodone-acetaminophen 5-325 mg Tablet 1 TAB PO ×2 (12:19→22:05)
--- NOTE | 2024-09-20 12:42 | P.PN_ITS ---
Subjective 2 Subjective: No acute events overnight. Patient seen at her bedside and has any complaints today. Vitals/I&O/Wt Last Vital Signs Temp 97.6 F 09/20/24 12:10 Pulse 65 09/20/24 12:10 Resp 18 09/20/24 12:10 BP 144/86 09/20/24 12:10 Pulse Ox 93 09/20/24 12:10 O2 Del Method Room Air 09/20/24 12:10 09/19/24 09/20/24 09/20/24 22:59 06:59 14:59 Intake Total 1603.75 / 1843.75 50 / 1893.75 1852 / 1852 Output Total 300 / 500 600 / 600 Balance 1303.75 / 1343.75 50 / 1393.75 1252 / 1252 Weight last 48 hrs Weight 59.511 kg Weight 51.982 kg Physical Exam 2 Const: COMMON NORMALS: no acute distress, patient oriented x3 and alert HENMT: COMMON NORMALS: normocephalic, atraumatic, external ears normal, Normal external nose present, moist oral mucous membranes and oropharynx normal HEAD & SCALP: normocephalic and atraumatic NOSE: Normal external nose present E XTERNAL EAR: Yes external ears normal Eye: COMMON NORMALS: Equal, round and reactive pupils present, EOMs intact bilaterally, conjunctivae normal and no scleral icterus CONJUNCTIVA: Yes conjunctivae normal PUPIL: Yes Equal, round and reactive pupils present Neck/C-Spine: COMMON NORMALS: full ROM, no lymphadenopathy and no JVD Chest: COMMONS NORMALS: normal inspection of the chest Resp: COMMON NORMALS: normal respiratory effort and clear to auscultation bilaterally AUSCULTATION: clear to auscultation bilaterally OTHER: No wheezes or crcakles Cardio: COMMON NORMALS: no JVD, regular rate, regular rhythm, S1 normal heart sound present and S2 normal heart sound present RATE: regular rate RHYTHM: regular rhythm HEART SOUNDS: S1 normal heart sound present and S2 normal heart sound present GI: COMMON NORMALS: Normal to inspection, nondistended, normoactive bowel sounds present, Soft to palpation and non-tender PALPATION: Yes Soft to palpation Extremity: COMMON NORMALS: normal to inspection (Right upper extremity in brace) and no pedal edema Neuro: COMMON NORMALS: patient oriented x3 SENSORIUM/ORIENTATION: Yes alert OTHER: No gross focal deficits Data 09/18/24 05:50 09/20/24 05:22 A&P Assessment and plan (1) Humerus shaft fracture: -Orthopedic surgery following. Plan for surgical fixation tomorrow -Patient currently has a brace in place -Continue as needed analgesia, other supportive care -Continue to monitor . Qualifiers: Encounter type: initial encounter Fracture alignment: displaced F racture morphology: spiral Fracture type: closed Laterality: right Qualified Code(s): S42.341A - Displaced spiral fracture of shaft of humerus, right arm, initial encounter for closed fracture (2) Acute kidney injury superimposed on chronic kidney disease: - Patient's kidney function has not improved despite IV fluids -Patient might have ATN -She is currently on IV hydration -Consult nephrology -Avoid nephrotoxic medications (3) Diabetes: -Continue Lantus, will further reduce dose to 10units Monitor for risk of hypoglycemia with JANELLE. -Reviewed POC glucose. - Continue sliding scale insulin (4) Hypertension: Continue home medications Attestations 2 Medical Necessity Statement*: Patient needs inpatient care for management of acute kidney injury, history and displaced humeral fracture Coding Level of Care Code Acute Code for Chg Fwd Diagnoses Closed displaced spiral fracture of shaft of right humerus, initial encounter S42.341A Encounter type: initial encounter Fracture alignment: displaced Fracture morphology: spiral Fracture type: closed Laterality: right Acute kidney injury superimposed on chronic kidney disease N17.9; N18.9 Diabetes E11.9 Hypertension I10
--- NOTE | 2024-09-20 13:39 | P.CONIM_ITS ---
Providers/Reason For Consult 2 Consulting Physician/Specialty*: adore walsh md / telenephrology Reason for Consult*: anamaria on ckd Requesting Physician: Dr Gold Attending Physician: Isabell Gold MD Primary Care Provider: Teja Yost MD History of Present Illness History of Present Illness Vannessa Ramirez is a 88 year old female admitted w/ a right humerus fracture after a mechanical fall. She has h/o DM, HFpEF- grade 1 diastolic dysfunction and pulm HTN, CKD, and HTN. renal is called for ANAMARIA- she uses Ibuprofen at home and a PPI. Pt had a cr of 2.6- 2.8 mg/dl in June 2024. she currently has a cr of 4.5 mg/dl and no improvement w/ IVF. Review of Systems 2 Narrative: headache, arm pain, nausea. no sob, cp, itching, cramps, diarrhea, urinary complaints Medications/Allergies Home Medications Medication Instructions Recorded Confirmed Last Taken Type amlodipine 10 mg tablet 10 mg PO DAILY 06/15/24 09/17/24 06/14/24 History calcitriol 0.25 mcg capsule 0.25 mcg PO .3X WEEKLY 06/15/24 09/17/24 Unknown History furosemide 40 mg tablet 40 mg PO .EVERY OTHER DAY 06/15/24 09/17/24 Unknown History insulin glargine 100 unit/mL (3 60 unit SUBCUT DAILY 06/15/24 09/17/24 Unknown History mL) subcutaneous pen (Lantus Solostar U-100 Insulin) metoprolol tartrate 100 mg tablet 100 mg PO BID 06/15/24 09/17/24 Unknown History pen needle, diabetic 31 gauge x 06/15/24 09/17/24 Unknown History 5/16 (BD Ultra-Fine Short Pen Needle) sodium bicarbonate 650 mg tablet 650 mg PO TID 06/15/24 09/17/24 Unknown History hydralazine 25 mg tablet 25 mg PO BID #60 tabs 06/16/24 09/17/24 Unknown Rx pantoprazole 40 mg tablet,delayed 40 mg PO BID 09/17/24 09/17/24 Unknown History release Allergies Allergy/AdvReac Type Severity Reaction Status Date / Time Penicillins Allergy ALGY-Hives Verified 09/17/24 13:07 Current Medications Generic Name Dose Route Start Last Admin Trade Name Freq PRN Reason Stop Dose Admin Acetaminophen 650 mg 09/17/24 19:07 09/18/24 22:35 Acetaminophen 325 Mg Tablet PO 650 mg Q6H PRN Administration Mild/Mod Pain Or Temp >/= 101 Hydrocodone Bitart/Acetaminophen 1 tab 09/18/24 11:32 09/20/24 12:19 Hydrocodone-Acetaminophen 5-325 Mg Tablet PO 1 tab Q6H PRN Administration MODERATE TO SEVERE PAIN Amlodipine Besylate 10 mg 09/18/24 09:00 09/20/24 08:21 Amlodipine 10 Mg Tablet PO 10 mg DAILY [facility] Administration Calcitriol 0.25 mcg 09/17/24 22:00 09/19/24 20:29 Calcitriol 0.25 Mcg Capsule PO 0.25 mcg MoWeFr [facility] Administration Docusate Sodium 100 mg 09/18/24 09:00 09/20/24 08:21 Docusate Sodium 100 Mg Capsule PO 100 mg BID XIME[facility] Administration Famotidine 20 mg 09/18/24 11:30 09/20/24 12:16 Famotidine 20 Mg/2 Ml Inj IVP 20 mg Q12H [facility] Administration Heparin Sodium (Porcine) 5,000 unit 09/18/24 19:30 09/20/24 08:21 Heparin 5,000 Unit/Ml Inj 1 Ml SUBCUT 5,000 unit Q12H [facility] Administration Hydralazine HCl 25 mg 09/18/24 09:00 09/20/24 08:21 Hydralazine 25 Mg Tablet PO 25 mg BID XIMENA Administration Insulin Human Lispro 0 unit 09/17/24 21:00 09/20/24 11:37 Insulin Lispro 100 Unit/1 Ml SUBCUT Not Given WM&BEDTIME [facility] Protocol Lidocaine 1 patch 09/19/24 11:00 09/20/24 09:24 Lidocaine 5% Patch TOPICAL 1 patch [id number] [facility] Administration Metoclopramide HCl 5 mg 09/18/24 14:52 09/19/24 06:10 Metoclopramide 5 Mg/Ml Sdv 2 Ml IVP 5 mg Q6H PRN Administration NAUSEA AND VOMITING Metoprolol Tartrate 100 mg 09/18/24 09:00 09/20/24 08:21 Metoprolol Tartrate 50 Mg Tablet PO 100 mg BID [facility] Administration Ondansetron HCl 4 mg 09/17/24 18:05 09/20/24 09:24 Ondansetron 2 Mg/Ml Sdv 2 Ml IVP 4 mg Q6H PRN Administration NAUSEA AND VOMITING Sodium Bicarbonate 650 mg 09/17/24 21:00 09/20/24 08:21 Sodium Bicarbonate 650 Mg Tablet PO 650 mg TID XIMENA Administration PFSH Acute 2 PFSH: Medical History Acute kidney injury superimposed on chronic kidney disease ANAMARIA (acute kidney injury) Diabetes Atypical chest pain Hyperkalemia CHF (congestive heart failure) Vitals/I&O/Wt Last Vital Signs Temp 97.6 F 09/20/24 12:10 Pulse 65 09/20/24 12:10 Resp 18 09/20/24 12:10 BP 144/86 09/20/24 12:10 Pulse Ox 93 09/20/24 12:10 O2 Del Method Room Air 09/20/24 12:10 09/19/24 09/20/24 09/20/24 22:59 06:59 14:59 Intake Total 1603.75 / 1843.75 50 / 1893.75 1852 / 1852 Output Total 300 / 500 600 / 600 Balance 1303.75 / 1343.75 50 / 1393.75 1252 / 1252 Weight last 48 hrs Weight 59.511 kg Weight 51.982 kg Physical Exam 2 Narrative: Elderly lady in bed no apparent distress. Vital signs noted. HEENT normocephalic atraumatic. Neck is supple. Lungs clear to auscultation. Heart regular no rubs or gallops. Abdomen is soft positive bowel sounds. Extremities 1+ right sided leg edema left leg trace edema. Upper extremity swelling and tenderness by fracture. Neuro awake alert oriented times 3+. Data 09/18/24 05:50 09/20/24 05:22 A&P Assessment and plan (1) Acute kidney injury superimposed on chronic kidney disease: 88-year-old lady admitted after fall with right humeral fracture. Patient has underlying hypertension diabetes, pulmonary hypertension, heart failure preserved EF with grade 1 diastolic dysfunction. Patient had a creatinine of 2.6 to 2.8 mg/dL in June 2024. 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 1. CKD 4 cr over 2.6 mg/dl in Jun 2024- Her diabetes is not well-controlled with a hemoglobin A1c of 8.5. albumin is normal Urinalysis in June at 3+ protein now has 4+ protein. This can be consistent with diabetic nephropathy. She is 1+ urine blood. -The patient was using a PPI at home which can cause interstitial nephritis however she does not have white cells in her urine. The patient was also using an ARB in the past. In the patient uses NSAIDs which can also cause interstitial nephritis agree with stopping all NSAIDs [place] 2 inhibitors and PPIs. For evaluation will get a renal ultrasound with renal artery duplex. Will check serum protein electrophoresis and serum immunofixation. Will also check an ANALI as she is on hydralazine. Can check ANCA and anti-GBM though less likely to be positive. -I am concerned that the patient is having progressive renal insufficiency which we can see from diabetic hypertensive nephrosclerosis which on most common causes of CKD in the last tomorrow. 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 Will check PTH and vitamin D levels monitor phosphorus. Hemoglobin acceptable for CKD. From a renal perspective her creatinine is stable but she is at increased risk for surgery. Please avoid hypotension. BP improved can continue na bicarb as her bicarbonate is under 18. Patient was seen and examined using audiovisual equipment with the aid of a nurse. The patient consented to telehealth. Plan see above Consult Attestations 2 Medical Necessity Statement: anamaria on ckd, rt humeral fx Coding Level of Care Code Acute Code for Chg Fwd Diagnoses Acute kidney injury superimposed on chronic kidney disease N17.9; N18.9
--- NOTE | 2024-09-20 13:54 | USCV_ITS ---
[place], [place] Age: 88 Gender: F : 1935 Exam Date: 09/20/2024 18:54 Ordering Phys: Marcelino Bruno MD Technologist: DAVID [place]am Location[place] [facility] [place] Indication: htn, anamaria on ckd ELEVATED BUN = 4.9, ELEVATED creatinine = 4.5 Aortic Velocity @ SMA (cm/s) RIGHT KIDNEY LEFT KIDNEY Velocity (cm/s) Velocity (cm/s) Sys/Andres Sys/Andres Resistive Index Resistive Index 100.2 / 9.3 0.91 Proximal Renal Artery / 35.0 / 5.1 0.85 Mid Renal Artery 59.7 / 8.1 0.86 34.3 / 5.1 0.85 Distal Renal Artery 63.3 / 8.1 0.87 1.20 Renal Aortic Ratio 0.80 Kidney Length (cm) 6.6 FINDINGS technically difficult study CONCLUSIONS No hydronephrosis Bilateral Cortical atrophy Increased Resistive indices compatible with renal parenchymal disease No signficant renal artery stenosis Partially evaluated simple and complex renal cysts Beny Morelos MD (Electronically Signed) Final Date: 21 September 2024 13:54 S
[2024-09-20 16:15] LABS: Hepatitis C Virus Antibody Non-Reactive (Nonreactive)
[2024-09-20 16:19] LABS: Vitamin B12 365 pg/mL (232-1245)
[2024-09-20 16:30] LABS: Folate Level 7.9 ng/mL (4.8-37.3)
[2024-09-20 16:35] LABS: Glucose Point of Care 80 mg/dL (70-110)
[2024-09-20 16:47] VITALS: BP 149/79; PULSE 58; RESP 18; TEMP 36.6; O2SAT 95
[2024-09-20 19:34] LABS: Bilirubin Urine Negative (Negative); Blood Urine Negative (Negative); Glucose Urine UA 1+ (Normal); Ketones Urine Trace (Negative); Leukocyte Esterase Urine Negative (Negative); Nitrate Urine Negative (Negative); Protein Urine 4+ (Negative); Specific Gravity, Urine 1.026 (1.005-1.030); Urine Appearance Clear (CLEAR); Urine Color Yellow (Yellow); Urobilinogen Urine 0.2 mg/dL (Negative); pH Urine 5.5 (5-7)
[2024-09-20 19:39] LABS: Bacteria Urine None Seen /hpf; Hyaline Casts Urine 4.11 /lpf; RBC Urine 0-2 /hpf (0-2); WBC Urine 0-5 /hpf (0-5)
[2024-09-20 19:48] LABS: Potassium, Radom Urine 40 mmol/L; Urine Random Chloride 41 mmol/L; Urine Random Sodium 47 mmol/L
[2024-09-20 20:00] VITALS: BP 129/78; PULSE 54; RESP 17; TEMP 36.6; O2SAT 95
[2024-09-20 20:30] LABS: Glucose Point of Care 82 mg/dL (70-110)
[2024-09-20 20:31] LABS: Eosinophil Urine No Eosinophils Seen
[2024-09-21] VITALS (19 sets, daily range): BP systolic 129–191; BP diastolic 50–85; PULSE 55–77; RESP 16–19; TEMP 36.1–36.5; O2SAT 89–98
--- NOTE | 2024-09-21 | XR_ITS ---
WS: [id number] C-ARM RADIOGRAPHS RIGHT HUMERUS; 6 IMAGES HISTORY: [facility] COMPARISON: Radiograph 09/19/2024 Intraoperative imaging during rodding mid humeral diaphyseal fracture which is now in better position and alignment. Mild offset at the fracture site persists. XR/[place] [address] IMPRESSION: Intraoperative imaging during ORIF RIGHT humerus.
[2024-09-21 05:52] LABS: Basophils # 0.1 10^3/uL (0.0-0.1); Basophils % 0.8 %; Eosinophils # 0.1 10^3/uL (0.0-0.8); Eosinophils % 0.6 %; Hematocrit 33.2 % (36-47); Lymphocytes # 2.5 10^3/uL (0.8-4.8); Lymphocytes % 18.7 %; Mean Corpuscular HGB Conc 31.6 g/dL (30-55); Mean Corpuscular Hemoglobin 30.6 pg (27-33); Mean Corpuscular Volume 96.8 fl (85-98); Mean Platelet Volume 10.2 fL (7.4-10.4); Monocytes # 0.8 10^3/uL (0.2-0.9); Monocytes % 6.1 %; Neutrophils # 9.92 10^3/uL (1.8-7.7); Neutrophils % 73.4 %; Nucleated Red Blood Cells % 0 %; Platelet Count 199 10^3/cmm (157-399); Red Blood Count 3.43 10^6/uL (3.85-5.65); Red Cell Distribution Width 14.6 % (12.1-15.1); White Blood Count 13.52 10^3/uL (3.29-11.43)
[2024-09-21 06:14] LABS: Alanine Aminotransferase 10 U/L (0-33); Albumin Level 2.8 g/dL (3.5-5.2); Alkaline Phosphatase 115 U/L (35-105); Anion Gap 15.7 (5-19); Aspartate Amino Transferase 29 U/L (0-32); Blood Urea Nitrogen 52 mg/dL (8-23); Carbon Dioxide 16 mmol/L (22-29); Chloride 110 mmol/L (98-107); Creatinine Clr Calc Pharmacy 7.0911; Ferritin 212 ng/mL (15-150); Globulin 2.9 g/dL (1.3-4.6); Glucose 52 mg/dL (65-115); Iron 52 ug/dL (37-145); Magnesium 1.7 mg/dL (1.7-2.3); Osmolality Calculated 295 mOsm/kg (285-295); Percent Saturation 32.9 % (20-50); Phosphorus 6.2 mg/dL (2.5-4.5); Potassium 4.7 mmol/L (3.5-5.1); Sodium 137 mmol/L (136-145); Total Bilirubin 0.3 mg/dL (0.15-1.2); Total Iron Binding Capacity 158 mcg/dl; Total Protein 5.7 g/dL (6.6-8.7); Unsaturated Iron Binding 106 ug/dL (112-347)
[2024-09-21 06:21] LABS: Glucose Point of Care 49 mg/dL (70-110)
[2024-09-21 06:26] LABS: 25 Hydroxy Vitamin D 6 ng/mL (30-100)
[2024-09-21] MEDS: dextrose 10% 250 ML 1000 ML IV (06:26)
[2024-09-21 06:36] LABS: Calcium 7.9 mg/dL (8.5-10.5)
[2024-09-21 06:43] LABS: Parathyroid Hormone 179.7 pg/mL (15-65)
--- NOTE | 2024-09-21 06:48 | PC.NURSE ---
Morning accu check was 49. Patient has been NPO since midnight for procedure today. Nurse intiated hypoglycemic protocol and ran dextrose 10% 250 ml over [address] Lee to advise him of situation. Dr. Lee ordered D5 1/2 NS at 60 ml/hr for maintenance fluid.
[2024-09-21] MEDS: dextrose 5%-sod chloride 0.45% 1,000 ML 60 ML IV (06:58)
--- NOTE | 2024-09-21 07:53 | PC.OT ---
Pt is placed on hold today from OT treatment due to having procedure. Will attempt treatment again at later time.
[2024-09-21 08:27] LABS: Glucose Point of Care 106 mg/dL (70-110)
[2024-09-21] MEDS: sodium chloride 0.9% 1,000 ML 30 ML IV (08:38)
[2024-09-21] MEDS: fentaNYL 50 mcg/mL INJ 2mL IVP (08:39)
--- NOTE | 2024-09-21 08:51 | P.PN_ITS ---
Subjective 2 Subjective: No acute events overnight. Patient seen at her bedside and has any complaints today. She is scheduled for surgical fixation of her fracture today Vitals/I&O/Wt Last Vital Signs Temp 97.3 F L 09/21/24 08:00 Pulse 77 09/21/24 08:00 Resp 17 09/21/24 08:00 BP 172/85 09/21/24 08:00 Pulse Ox 93 09/21/24 08:00 O2 Del Method Room Air 09/21/24 08:00 09/20/24 09/21/24 09/21/24 22:59 06:59 14:59 Intake Total 0 / 1852 250 / 2102 Output Total 200 / 1000 Balance -200 / 852 250 / 1102 Weight last 48 hrs Weight 61.779 kg Weight 59.511 kg Physical Exam 2 Const: COMMON NORMALS: no acute distress, patient oriented x3 and alert HENMT: COMMON NORMALS: normocephalic, atraumatic, external ears normal, Normal external nose present, moist oral mucous membranes and oropharynx normal HEAD & SCALP: normocephalic and atraumatic NOSE: Normal external nose present E XTERNAL EAR: Yes external ears normal Eye: COMMON NORMALS: Equal, round and reactive pupils present, EOMs intact bilaterally, conjunctivae normal and no scleral icterus CONJUNCTIVA: Yes conjunctivae normal PUPIL: Yes Equal, round and reactive pupils present Neck/C-Spine: COMMON NORMALS: full ROM, no lymphadenopathy and no JVD Chest: COMMONS NORMALS: normal inspection of the chest Resp: COMMON NORMALS: normal respiratory effort and clear to auscultation bilaterally AUSCULTATION: clear to auscultation bilaterally OTHER: No wheezes or crcakles Cardio: COMMON NORMALS: no JVD, regular rate, regular rhythm, S1 normal heart sound present and S2 normal heart sound present RATE: regular rate RHYTHM: regular rhythm HEART SOUNDS: S1 normal heart sound present and S2 normal heart sound present GI: COMMON NORMALS: Normal to inspection, nondistended, normoactive bowel sounds present, Soft to palpation and non-tender PALPATION: Yes Soft to palpation Extremity: COMMON NORMALS: normal to inspection (Right upper extremity in brace) and no pedal edema Neuro: COMMON NORMALS: patient oriented x3 SENSORIUM/ORIENTATION: Yes alert OTHER: No gross focal deficits Data 09/21/24 05:32 09/21/24 05:32 A&P Assessment and plan (1) Humerus shaft fracture: -Orthopedic surgery following. Plan for surgical fixation today -Patient currently has a brace in place -Continue as needed analgesia, other supportive care -Continue to monitor . Qualifiers: Encounter type: initial encounter Fracture type: closed Fracture morphology: spiral Fracture alignment: displaced Laterality: right Qualified Code(s): S42.341A - Displaced spiral fracture of shaft of humerus, right arm, initial encounter for closed fracture (2) Acute kidney injury superimposed on chronic kidney disease: - Patient's kidney function has not improved despite IV fluids -Creatinine trending up today -Worsening kidney function possibly multifactorial. Patient was taking NSAIDs and PPI outpatient. She also has diabetes and hypertension -Nephrology consulted and is following. Appreciate recs -She is on sodium bicarb for metabolic acidosis -Avoid nephrotoxic medications (3) Diabetes: -Blood glucose is on the low side. Will hold long-acting insulin for now Monitor for risk of hypoglycemia with JANELLE. -Reviewed POC glucose. - Continue sliding scale insulin (4) Hypertension: Continue home medications Attestations 2 Medical Necessity Statement*: Patient needs inpatient care for management of acute kidney injury, surgical intervention for displaced humeral fracture Coding Level of Care Code Acute Code for Chg Fwd Diagnoses Closed displaced spiral fracture of shaft of right humerus, initial encounter S42.341A Encounter type: initial encounter Fracture type: closed Fracture morphology: spiral Fracture alignment: displaced Laterality: right Acute kidney injury superimposed on chronic kidney disease N17.9; N18.9 Diabetes E11.9 Hypertension I10
--- NOTE | 2024-09-21 09:16 | P.ANESASSM_ITS ---
Pre-Anesthetic Assessment Height/Weight: Height 5 ft 1 in Weight 136 lb 3.2 oz Temp Pulse Resp BP Pulse Ox O2 Del Method 97.3 F L 77 16 172/85 95 Room Air 09/21/24 08:00 09/21/24 08:00 09/21/24 08:39 09/21/24 08:00 09/21/24 08:39 09/21/24 08:00 Preop Diagnosis: Right humeral shaft fracture Operation Date: 09/21/24 09:45 Proposed Procedures p Right intramedullary nail of humerus(Right) - Devin Landry, DO Was Beta Lilian taken within 24 hours: Yes Was Clonidine taken within 24 hours: N/A Last intake: Intake Last Liquid Date 09/21/24 Last Liquid Time 00:00 Last Solid Date 09/21/24 Last Solid Time 00:00 Social No alcohol and No tobacco Exam alert, oriented x 3, clear to auscultation bilaterally and regular rate & rhythm Airway Submandibular: within normal limits Cervical ROM: within normal limits Mallampati: Class II Comments: Comments: edentulous Anesthetic Plan ASA status: 3 Anesthesia: General Other: No prior issues with anesthesia NPO since yesterday History of hypertension on metoprolol hydralazine and amlodipine. Preop BP 172/85 History of diabetes on insulin. Labs reviewed today and acceptable for procedure, hemoglobin 10.5 JANELLE on CKD, creatinine 4.8, electrolytes stable Patient states that she lives alone and was able to perform ADLs Plan for general anesthesia with postop nerve block once motor function has been evaluated Medications/Allergies Home Medications Medication Instructions Recorded Confirmed Last Taken Type amlodipine 10 mg tablet 10 mg PO DAILY 06/15/24 09/17/24 06/14/24 History calcitriol 0.25 mcg capsule 0.25 mcg PO .3X WEEKLY 06/15/24 09/17/24 Unknown History furosemide 40 mg tablet 40 mg PO .EVERY OTHER DAY 06/15/24 09/17/24 Unknown History insulin glargine 100 unit/mL (3 60 unit SUBCUT DAILY 06/15/24 09/17/24 Unknown History mL) subcutaneous pen (Lantus Solostar U-100 Insulin) metoprolol tartrate 100 mg tablet 100 mg PO BID 06/15/24 09/17/24 Unknown History pen needle, diabetic 31 gauge x 06/15/24 09/17/24 Unknown History 01/18 (BD Ultra-Fine Short Pen Needle) sodium bicarbonate 650 mg tablet 650 mg PO TID 06/15/24 09/17/24 Unknown History hydralazine 25 mg tablet 25 mg PO BID #60 tabs 06/16/24 09/17/24 Unknown Rx pantoprazole 40 mg tablet,delayed 40 mg PO BID 09/17/24 09/17/24 Unknown History release Allergies Allergy/AdvReac Type Severity Reaction Status Date / Time Penicillins Allergy ALGY-Hives Verified 09/17/24 13:07 Current Medications Generic Name Dose Route Start Last Admin Trade Name Freq PRN Reason Stop Dose Admin Acetaminophen 650 mg 09/17/24 19:07 09/18/24 22:35 Acetaminophen 325 Mg Tablet PO 650 mg Q6H PRN Administration Mild/Mod Pain Or Temp >/= 101 Hydrocodone Bitart/Acetaminophen 1 tab 09/18/24 11:32 09/20/24 22:05 Hydrocodone-Acetaminophen 5-325 Mg Tablet PO 1 tab Q6H PRN Administration MODERATE TO SEVERE PAIN Amlodipine Besylate 10 mg 09/18/24 09:00 09/20/24 08:21 Amlodipine 10 Mg Tablet PO 10 mg DAILY XIME[facility] Administration Calcitriol 0.25 mcg 09/17/24 22:00 09/19/24 20:29 Calcitriol 0.25 Mcg Capsule PO 0.25 mcg MoWeFr XIME[facility] Administration Docusate Sodium 100 mg 09/18/24 09:00 09/20/24 19:46 Docusate Sodium 100 Mg Capsule PO 100 mg BID XIMENA Administration Famotidine 20 mg 09/18/24 11:30 09/20/24 23:26 Famotidine 20 Mg/2 Ml Inj IVP 20 mg Q12H XIMENA Administration Fentanyl 50 mcg 09/21/24 08:21 09/21/24 08:39 Fentanyl 50 Mcg/Ml Inj 2ml IVP 50 mcg Q10M PRN Administration Preop Pain Heparin Sodium (Porcine) 5,000 unit 09/18/24 19:30 09/20/24 19:46 Heparin 5,000 Unit/Ml Inj 1 Ml SUBCUT 5,000 unit Q12H XIME[facility] Administration Hydralazine HCl 25 mg 09/18/24 09:00 09/20/24 19:46 Hydralazine 25 Mg Tablet PO 25 mg BID XIME[facility] Administration Dextrose 250 mls @ 1,000 mls/hr 09/17/24 19:14 09/21/24 06:58 D10w IV Infused PRN PRN Infusion Adult Acute Hypoglycemia Nursing Protocol Protocol Dextrose/Sodium Chloride 1,000 mls @ 60 mls/hr 09/21/24 06:45 09/21/24 06:58 Dextrose 5%-Sod Chloride 0.45% IV 60 mls/hr .[id number] XIMENA Administration Sodium Chloride 1,000 mls @ 30 mls/hr 09/21/24 08:30 09/21/24 08:38 Sodium Chloride 0.9% IV 09/22/24 08:29 30 mls/hr .Q24H [facility] Administration Insulin Human Lispro 0 unit 09/17/24 21:00 09/21/24 08:07 Insulin Lispro 100 Unit/1 Ml SUBCUT Not Given WM&BEDTIME [facility] Protocol Lidocaine 1 patch 09/19/24 11:00 09/20/24 22:05 Lidocaine 5% Patch TOPICAL Not Given [id number] XIMENA Metoclopramide HCl 5 mg 09/18/24 14:52 09/19/24 06:10 Metoclopramide 5 Mg/Ml Sdv 2 Ml IVP 5 mg Q6H PRN Administration NAUSEA AND VOMITING Metoprolol Tartrate 100 mg 09/18/24 09:00 09/20/24 19:46 Metoprolol Tartrate 50 Mg Tablet PO 100 mg BID XIME[facility] Administration Ondansetron HCl 4 mg 09/17/24 18:05 09/20/24 09:24 Ondansetron 2 Mg/Ml Sdv 2 Ml IVP 4 mg Q6H PRN Administration NAUSEA AND VOMITING Sodium Bicarbonate 650 mg 09/17/24 21:00 09/20/24 22:05 Sodium Bicarbonate 650 Mg Tablet PO 650 mg TID XIMENA Administration PFSH Anesthesia Medical History Acute kidney injury superimposed on chronic kidney disease JANELLE (acute kidney injury) Diabetes Atypical chest pain Hyperkalemia CHF (congestive heart failure) Data Anesthesia 09/21/24 05:32 09/21/24 05:32 Short CBC 09/21/24 Range/Units 05:32 WBC 13.52 H (3.29-11.43) 10^3/uL Hgb 10.50 L (11.27-16.99) g/dL Hct 33.2 L (36-47) % MCV 96.8 (85-98) fl Plt Count 199 (157-399) 10^3/cmm Neut % (Auto) 73.4 % Neut # (Auto) 9.92 H (1.8-7.7) 10^3/uL BMP 09/20/24 09/21/24 05:22 05:32 Sodium 135 L 137 Potassium 4.5 4.7 Chloride 106 110 H Carbon Dioxide 16 L 16 L BUN 49 H 52 H Creatinine 4.5 H 4.8 H Glucose 66 52 L Calcium 8.0 L 8.0 L Liver Function 09/21/24 Range/Units 05:32 Total Bilirubin 0.3 (0.15-1.2) mg/dL AST 29 (0-32) U/L ALT 10 (0-33) U/L Alkaline Phosphatase 115 H (35-105) U/L Albumin 2.8 L (3.5-5.2) g/dL Urine 09/20/24 Range/Units 18:30 Urine Color Yellow (Yellow) Urine Appearance Clear (CLEAR) Urine pH 5.5 (5-7) Ur Specific [place] 1.026 (1.005-1.030) Urine Protein 4+ A (Negative) Urine Glucose (UA) 1+ H (Normal) Urine Ketones Trace (Negative) Urine Nitrate Negative (Negative) Urine Bilirubin Negative (Negative) Ur Leukocyte Esterase Negative (Negative) Urine RBC 0-2 (0-2) /hpf Urine WBC 0-5 (0-5) /hpf Cardiac Studies: 2 Echocardiogram 06/16/24
[2024-09-21 09:20] LABS: PROTEIN, TOTAL 5.2 g/dL (6.1-8.1)
--- NOTE | 2024-09-21 09:22 | W.PM.OPSUD ---
Surgery/Procedure H&P Update DATE OF PROCEDURE: September 21, 2024 DATE H&P PERFORMED: 09/17/24 H&P UPDATE INFORMATION: I have reviewed H&P completed within last 30 days, I have examined patient prior to procedure and No changes to prior documentation PREOP DIAGNOSIS: Right humeral shaft fracture PLANNED PROCEDURE: Operation Date: 09/21/24 09:45 Proposed Procedures p Right intramedullary nail of humerus(Right) - Devin Landry DO
--- NOTE | 2024-09-21 09:38 | PC.SOCIAL ---
IMM Update pg 2 of IMM Updated and reviewed w/ patient. Copy provided and copy dated, initialed and placed in chart.
[2024-09-21] MEDS: clindamycin 600 MG/50 ML PREMIX 100 MG IV (09:40)
--- NOTE | 2024-09-21 11:33 | P.PN_ITS ---
Subjective 2 Subjective: plan for OR today Medications: Reviewed: Yes Vitals/I&O/Wt Last Vital Signs Temp 97.3 F L 09/21/24 08:00 Pulse 77 09/21/24 08:00 Resp 16 09/21/24 08:39 BP 172/85 09/21/24 08:00 Pulse Ox 95 09/21/24 08:39 O2 Del Method Room Air 09/21/24 08:00 09/20/24 09/21/24 09/21/24 22:59 06:59 14:59 Intake Total 0 / 1852 250 / 2102 50 / 50 Output Total 200 / 1000 Balance -200 / 852 250 / 1102 50 / 50 Weight last 48 hrs Weight 61.779 kg Weight 59.511 kg Physical Exam 2 Narrative: Elderly lady in bed no apparent distress. Vital signs noted. HEENT normocephalic atraumatic. Neck is supple. Lungs clear to auscultation. Heart regular no rubs or gallops. Abdomen is soft positive bowel sounds. Extremities 1+ right sided leg edema left leg trace edema. Upper extremity swelling and tenderness by fracture. Neuro awake alert oriented times 3+. Data 09/22/24 03:27 09/22/24 03:27 A&P Assessment and plan (1) Acute kidney injury superimposed on chronic kidney disease: 88-year-old lady admitted after fall with right humeral fracture. Patient has underlying hypertension diabetes, pulmonary hypertension, heart failure preserved EF with grade 1 diastolic dysfunction. Patient had a creatinine of 2.6 to 2.8 mg/dL in June 2024. And she states to me that she has longstanding CKD and follows with a application spec as an outpatient. 1. 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 albumin is normal Urinalysis in June at 3+ protein now has 4+ protein. This can be consistent with diabetic nephropathy. She is 1+ urine blood. -The patient was using a PPI at home which can cause interstitial nephritis however UA is bland ,unlikely AIN , - patient uses NSAIDs which can also cause interstitial nephritis agree with stopping all NSAIDs Holland 2 inhibitors and PPIs. - will get renal ultrasound with renal artery duplex. Will check serum protein electrophoresis and serum immunofixation. Will also check an ANALI as she is on hydralazine. Can check ANCA and anti-GBM though less likely to be positive. -I am concerned that the patient is having progressive renal insufficiency which we can see from diabetic hypertensive nephrosclerosis which are most common causes of progressive CKD. 2. 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 Will check PTH and vitamin D levels monitor phosphorus. 3. Anemia : Hemoglobin acceptable for CKD. 4. Humers fracture , OR today , avoid periop hypotension, on IVFs 5. Metabolic acidosis : on bicarb tabs Patient was seen and examined using audiovisual equipment with the aid of a nurse. The patient consented to telehealth. Plan see above Attestations 2 Medical Necessity Statement*: per medicine Coding Level of Care Code Acute Code for Chg Fwd Diagnoses Acute kidney injury superimposed on chronic kidney disease N17.9; N18.9
--- NOTE | 2024-09-21 11:55 | PM.OP ---
Operative Report Date of procedure: September 21, 2024 Pre-op diagnosis: Right humerus fracture shaft Post-op diagnosis: same Procedure done: Right humeral intramedullary nail Surgeon: Devin Landry DO Estimated blood loss (mL): 25 Procedure: Intramedullary nail right humerus Patient brought to the procedure after an undergoing anesthesia patient was placed in the beachchair position. All areas impingement well-padded. Patient was prepped and draped normal sterile fashion. Skin incision made over the proximal humerus. Starting point was inserted patient's acromion was over the starting point difficulty the lateral starting point was inserted then the opening reamer was inserted ball wire was passed nail was measured to be 22-1/2. The nail was placed and while the nail was being placed small crack occurred in the proximal humerus. Nail was removed and then 2 cerclage wires were placed from the proximal humerus. The starting point was made with lateral traction being made through the incision where the cerclage as well as able to get a good starting point the stent was made. Was inserted and then the guidewire was passed nail was passed across the fracture. 2 screws were placed proximal screws placed distally. AP lateral fluoroscopy showed the hardware and fracture was in good position. Wounds irrigated closed with Vicryl and robby. Sterile dressings were applied patient transferred to the PACU in stable condition.
--- NOTE | 2024-09-21 12:15 | ANES.PROC ---
Anesthesia Procedures Procedure/Date: 09/21/24 Nerve Block ^: Nerve Block 1: Main Anesthesia: general anesthesia Time Out Performed: Yes Consent: requested by attending/covering physician and from patient Nerve block location: interscalene Anesthesia monitors applied: pulse oximetry, EKG, BP cuff and oxygen Nerve block position: supine Anesthetic Used: ropivicaine 0.5% Amount of anesthesia used (mL): 30 Ultrasound used to: recognize landmarks Nerve Stimulator Used?: Yes Interscalene/Femoral BLK: other needle (pjunk 4inch) Injection: neg aspiration of heme Patient Tolerated Procedure: well Complications: none
--- NOTE | 2024-09-21 12:33 | ANE.PACU2 ---
Inpatient post-anesthesia follow up: Airway intact: Yes Vital signs: Temperature 97 F Pulse Rate 69 Respiratory Rate 16 Blood Pressure 160/56 Pulse Oximetry 95 Oxygen Delivery Me thod Nasal Cannula Oxygen Flow Rate 3 Fraction of Inspir ed Oxygen Hydration adequate: Yes Nausea and vomiting: No Pain level: 1 Mental status: Baseline
[2024-09-21 13:10] LABS: Glucose Point of Care 104 mg/dL (70-110)
[2024-09-21 16:37] LABS: Glucose Point of Care 97 mg/dL (70-110)
[2024-09-21] MEDS: docusate sodium 100 mg Capsule PO (17:26)
[2024-09-21] MEDS: metoprolol tartrate 50 mg Tablet 100 MG PO (17:26)
[2024-09-21] MEDS: sodium bicarbonate 650 mg Tablet PO ×2 (17:26→21:21)
[2024-09-21] MEDS: hyDRALAzine 25 mg Tablet PO (17:26)
[2024-09-21 21:12] LABS: Glucose Point of Care 194 mg/dL (70-110)
[2024-09-21] MEDS: heparin 5,000 unit/mL INJ 1 mL 5000 UNIT SUBCUT (21:20)
[2024-09-21] MEDS: calcitriol 0.25 mcg Capsule PO (21:21)
[2024-09-22] VITALS: BP 143/71; PULSE 67; RESP 18; TEMP 37.1; O2SAT 97
[2024-09-22] MEDS: HYDROcodone-acetaminophen 5-325 mg Tablet 1 TAB PO ×3 (03:08→18:09)
[2024-09-22 03:44] LABS: Basophils % 0.2 %; Hematocrit 31.4 % (36-47); Lymphocytes # 1.7 10^3/uL (0.8-4.8); Lymphocytes % 16.5 %; Mean Corpuscular HGB Conc 30.6 g/dL (30-55); Mean Corpuscular Hemoglobin 31.1 pg (27-33); Mean Corpuscular Volume 101.6 fl (85-98); Mean Platelet Volume 10.4 fL (7.4-10.4); Monocytes # 1.3 10^3/uL (0.2-0.9); Monocytes % 12.6 %; Neutrophils # 7.33 10^3/uL (1.8-7.7); Neutrophils % 70.2 %; Nucleated Red Blood Cells % 0 %; Platelet Count 190 10^3/cmm (157-399); Red Blood Count 3.09 10^6/uL (3.85-5.65); Red Cell Distribution Width 14.6 % (12.1-15.1); White Blood Count 10.44 10^3/uL (3.29-11.43)
[2024-09-22 03:57] LABS: Alanine Aminotransferase 11 U/L (0-33); Albumin Level 2.7 g/dL (3.5-5.2); Alkaline Phosphatase 107 U/L (35-105); Anion Gap 20.4 (5-19); Aspartate Amino Transferase 33 U/L (0-32); Blood Urea Nitrogen 56 mg/dL (8-23); Calcium 8.1 mg/dL (8.5-10.5); Carbon Dioxide 13 mmol/L (22-29); Chloride 108 mmol/L (98-107); Creatinine Clr Calc Pharmacy 6.9464; Globulin 2.5 g/dL (1.3-4.6); Glucose 242 mg/dL (65-115); Magnesium 1.8 mg/dL (1.7-2.3); Osmolality Calculated 305 mOsm/kg (285-295); Phosphorus 7.1 mg/dL (2.5-4.5); Potassium 5.4 mmol/L (3.5-5.1); Sodium 136 mmol/L (136-145); Total Bilirubin 0.3 mg/dL (0.15-1.2); Total Protein 5.2 g/dL (6.6-8.7)
[2024-09-22 04:00] VITALS: BP 135/73; PULSE 69; RESP 17; TEMP 36.4; O2SAT 91
[2024-09-22 04:10] LABS: Anti-Double Strand DNA AB 14 IU/mL
[2024-09-22] MEDS: heparin 5,000 unit/mL INJ 1 mL 5000 UNIT SUBCUT ×2 (05:39→20:17)
[2024-09-22] MEDS: famotidine 20 mg/2 mL INJ IVP ×3 (05:39→22:54)
[2024-09-22 06:36] LABS: Glucose Point of Care 210 mg/dL (70-110)
[2024-09-22 08:00] VITALS: BP 180/65; PULSE 78; RESP 15; TEMP 36.3; O2SAT 94
[2024-09-22] MEDS: sodium polystyrene sulfonate 15 gm/60 mL Btl 30 GM PO (08:02)
[2024-09-22] MEDS: insulin lispro 100 unit/1 mL SUBCUT ×3 (08:02→21:01)
[2024-09-22] MEDS: lidocaine 5% Patch 1 PATCH TOPICAL ×2 (08:03→20:20)
[2024-09-22] MEDS: metoprolol tartrate 50 mg Tablet 100 MG PO ×2 (08:03→17:43)
[2024-09-22] MEDS: sodium bicarbonate 650 mg Tablet PO (08:03)
[2024-09-22] MEDS: amlodipine 10 mg Tablet PO (08:03)
[2024-09-22] MEDS: hyDRALAzine 25 mg Tablet PO ×2 (08:04→17:43)
[2024-09-22] MEDS: docusate sodium 100 mg Capsule PO (08:04)
--- NOTE | 2024-09-22 11:03 | P.PN_ITS ---
Subjective 2 Subjective: Patient has postop day 1 from a right humeral nail. Patient is complaining of pain. Otherwise doing okay. She was ambulating to the bathroom. Vitals/I&O/Wt Last Vital Signs Temp 97.4 F L 09/22/24 08:00 Pulse 78 09/22/24 08:00 Resp 15 09/22/24 08:00 BP 180/65 09/22/24 08:00 Pulse Ox 94 09/22/24 08:00 O2 Del Method Room Air 09/22/24 08:00 O2 Flow Rate 3 09/22/24 00:00 09/21/24 09/22/24 09/22/24 22:59 06:59 14:59 Intake Total 30 / 1080 630 / 1710 520 / 520 Output Total 1200 / 1200 Balance 30 / 1040 630 / 1670 -680 / -680 Weight last 48 hrs Weight 134 lb 1.6 oz Weight 136 lb 3.2 oz Physical Exam 2 Narrative: Radial nerve is intact. Patient is up ambulating. Data 09/22/24 03:27 09/22/24 03:27 A&P Assessment and plan (1) Humerus shaft fracture: Postop day #1 right humeral shaft fracture. With intramedullary nail. Okay to discharge from orthopedic standpoint. Qualifiers: Encounter type: initial encounter Fracture type: closed Fracture morphology: spiral Fracture alignment: displaced Laterality: right Qualified Code(s): S42.341A - Displaced spiral fracture of shaft of humerus, right arm, initial encounter for closed fracture Attestations 2 Medical Necessity Statement*: Per primary service Coding Level of Care Code Acute Code for [facility] Diagnoses Closed displaced spiral fracture of shaft of right humerus, initial encounter S42.341A Encounter type: initial encounter Fracture type: closed Fracture morphology: spiral Fracture alignment: displaced Laterality: right
[2024-09-22 11:59] LABS: Glucose Point of Care 216 mg/dL (70-110)
[2024-09-22 12:00] VITALS: BP 181/79; PULSE 75; RESP 15; TEMP 37; O2SAT 93
--- NOTE | 2024-09-22 12:19 | P.PN_ITS ---
Subjective 2 Subjective: No acute events overnight. Patient seen at the bedside, she is status post right humeral nail, she reports some pain today. She has no other complaints. Medications: Reviewed: Yes Vitals/I&O/Wt Last Vital Signs Temp 97.4 F L 09/22/24 08:00 Pulse 78 09/22/24 08:00 Resp 15 09/22/24 08:00 BP 180/65 09/22/24 08:00 Pulse Ox 94 09/22/24 08:00 O2 Del Method Room Air 09/22/24 08:00 O2 Flow Rate 3 09/22/24 00:00 09/21/24 09/22/24 09/22/24 22:59 06:59 14:59 Intake Total 30 / 1080 630 / 1710 520 / 520 Output Total 1200 / 1200 Balance 30 / 1040 630 / 1670 -680 / -680 Weight last 48 hrs Weight 60.827 kg Weight 61.779 kg Physical Exam 2 Const: COMMON NORMALS: no acute distress, patient oriented x3 and alert HENMT: COMMON NORMALS: normocephalic, atraumatic, external ears normal, Normal external nose present, moist oral mucous membranes and oropharynx normal HEAD & SCALP: normocephalic and atraumatic NOSE: Normal external nose present E XTERNAL EAR: Yes external ears normal Eye: COMMON NORMALS: Equal, round and reactive pupils present, EOMs intact bilaterally, conjunctivae normal and no scleral icterus CONJUNCTIVA: Yes conjunctivae normal PUPIL: Yes Equal, round and reactive pupils present Neck/C-Spine: COMMON NORMALS: full ROM, no lymphadenopathy and no JVD Chest: COMMONS NORMALS: normal inspection of the chest Resp: COMMON NORMALS: normal respiratory effort and clear to auscultation bilaterally AUSCULTATION: clear to auscultation bilaterally OTHER: No wheezes or crcakles Cardio: COMMON NORMALS: no JVD, regular rate, regular rhythm, S1 normal heart sound present and S2 normal heart sound present RATE: regular rate RHYTHM: regular rhythm HEART SOUNDS: S1 normal heart sound present and S2 normal heart sound present GI: COMMON NORMALS: Normal to inspection, nondistended, normoactive bowel sounds present, Soft to palpation and non-tender PALPATION: Yes Soft to palpation Extremity: COMMON NORMALS: normal to inspection (Right upper extremity wrapped) and no pedal edema Neuro: COMMON NORMALS: patient oriented x3 SENSORIUM/ORIENTATION: Yes alert OTHER: No gross focal deficits Data 09/22/24 03:27 09/22/24 03:27 A&P Assessment and plan (1) Humerus shaft fracture: -Orthopedic surgery following. -Patient is status post intramedullary nailing -Continue as needed analgesia, other supportive care -Continue to monitor . Qualifiers: Encounter type: initial encounter Fracture type: closed Fracture morphology: spiral Fracture alignment: displaced Laterality: right Qualified Code(s): S42.341A - Displaced spiral fracture of shaft of humerus, right arm, initial encounter for closed fracture (2) Acute kidney injury superimposed on chronic kidney disease: - Patient's kidney function has not improved despite IV fluids -Creatinine trending stable today -Worsening kidney function possibly multifactorial. Patient was taking NSAIDs and PPI outpatient. She also has diabetes and hypertension -Nephrology consulted and is following. Appreciate recs -She is on sodium bicarb for metabolic acidosis -She has mild hyperkalemia today and was given Kayexalate -Avoid nephrotoxic medications (3) Diabetes: -Blood glucose is improved -Resume long-acting insulin at reduced dose Monitor for risk of hypoglycemia with JANELLE. -Reviewed POC glucose. - Continue sliding scale insulin (4) Hypertension: Continue home medications Attestations 2 Medical Necessity Statement*: Patient needs inpatient care for management of acute kidney injury Coding Level of Care Code Acute Code for Chg Fwd Diagnoses Closed displaced spiral fracture of shaft of right humerus, initial encounter S42.341A Encounter type: initial encounter Fracture type: closed Fracture morphology: spiral Fracture alignment: displaced Laterality: right Acute kidney injury superimposed on chronic kidney disease N17.9; N18.9 Diabetes E11.9 Hypertension I10
[2024-09-22 13:08] LABS: Albumin Level 2.9 g/dL (3.5-5.2); Anion Gap 20.5 (5-19); Blood Urea Nitrogen 54 mg/dL (8-23); Calcium 7.9 mg/dL (8.5-10.5); Carbon Dioxide 13 mmol/L (22-29); Chloride 108 mmol/L (98-107); Creatinine Clr Calc Pharmacy 6.7589; Glucose 241 mg/dL (65-115); Potassium 5.5 mmol/L (3.5-5.1); Sodium 136 mmol/L (136-145)
[2024-09-22] MEDS: sodium bicarbonate 150 MEQ in dextrose 5% 1,000 ML 100 MEQ IV (14:09)
[2024-09-22 16:00] VITALS: BP 190/71; PULSE 71; RESP 15; TEMP 36.9; O2SAT 96
[2024-09-22 16:55] LABS: Glucose Point of Care 135 mg/dL (70-110)
[2024-09-22 17:30] LABS: Glomerular Bsmt Membrane IGG <1.0 AI
[2024-09-22 20:00] VITALS: BP 160/79; PULSE 80; RESP 18; TEMP 36.9; O2SAT 94
[2024-09-22 20:27] LABS: Anion Gap 19.3 (5-19); Blood Urea Nitrogen 59 mg/dL (8-23); Calcium 7.5 mg/dL (8.5-10.5); Carbon Dioxide 14 mmol/L (22-29); Chloride 106 mmol/L (98-107); Creatinine Clr Calc Pharmacy 6.7589; Glucose 205 mg/dL (65-115); Osmolality Calculated 302 mOsm/kg (285-295); Potassium 4.3 mmol/L (3.5-5.1); Sodium 135 mmol/L (136-145)
[2024-09-22 21:01] LABS: Glucose Point of Care 238 mg/dL (70-110)
[2024-09-23] VITALS: BP 138/78; PULSE 67; RESP 16; TEMP 37.1; O2SAT 92
[2024-09-23] MEDS: sodium bicarbonate 150 MEQ in dextrose 5% 1,000 ML 100 MEQ IV ×2 (02:54→15:41)
[2024-09-23 04:00] VITALS: BP 132/88; PULSE 80; RESP 18; TEMP 36.4; O2SAT 93
[2024-09-23 05:45] LABS: Basophils # 0.1 10^3/uL (0.0-0.1); Basophils % 0.6 %; Eosinophils # 0.4 10^3/uL (0.0-0.8); Eosinophils % 4.3 %; Hematocrit 27.1 % (36-47); Lymphocytes # 2.7 10^3/uL (0.8-4.8); Lymphocytes % 26.1 %; Mean Corpuscular HGB Conc 29.5 g/dL (30-55); Mean Platelet Volume 10.7 fL (7.4-10.4); Monocytes # 1.2 10^3/uL (0.2-0.9); Monocytes % 11.8 %; Neutrophils # 5.82 10^3/uL (1.8-7.7); Neutrophils % 56.8 %; Nucleated Red Blood Cells % 0 %; Platelet Count 134 10^3/cmm (157-399); Red Blood Count 2.58 10^6/uL (3.85-5.65); Red Cell Distribution Width 14.6 % (12.1-15.1); White Blood Count 10.25 10^3/uL (3.29-11.43)
[2024-09-23 06:02] LABS: Alanine Aminotransferase 11 U/L (0-33); Albumin Level 2.3 g/dL (3.5-5.2); Alkaline Phosphatase 97 U/L (35-105); Anion Gap 19.8 (5-19); Aspartate Amino Transferase 25 U/L (0-32); Blood Urea Nitrogen 56 mg/dL (8-23); Calcium 7.2 mg/dL (8.5-10.5); Carbon Dioxide 16 mmol/L (22-29); Chloride 103 mmol/L (98-107); Creatinine Clr Calc Pharmacy 6.6552; Globulin 2.3 g/dL (1.3-4.6); Glucose 198 mg/dL (65-115); Magnesium 1.6 mg/dL (1.7-2.3); Osmolality Calculated 301 mOsm/kg (285-295); Potassium 3.8 mmol/L (3.5-5.1); Sodium 135 mmol/L (136-145); Total Bilirubin 0.3 mg/dL (0.15-1.2); Total Protein 4.6 g/dL (6.6-8.7)
[2024-09-23] MEDS: heparin 5,000 unit/mL INJ 1 mL 5000 UNIT SUBCUT ×2 (06:23→19:22)
[2024-09-23 06:44] LABS: Glucose Point of Care 239 mg/dL (70-110)
[2024-09-23 08:00] VITALS: BP 157/69; PULSE 78; RESP 15; TEMP 37.5; O2SAT 94
[2024-09-23] MEDS: amlodipine 10 mg Tablet PO (08:51)
[2024-09-23] MEDS: sodium bicarbonate 650 mg Tablet PO (08:51)
[2024-09-23] MEDS: metoprolol tartrate 50 mg Tablet 100 MG PO ×2 (08:51→17:08)
[2024-09-23] MEDS: insulin glargine 100 units/1 mL 15 UNIT SUBCUT (08:51)
[2024-09-23] MEDS: docusate sodium 100 mg Capsule PO (08:51)
[2024-09-23] MEDS: insulin lispro 100 unit/1 mL SUBCUT ×3 (08:51→21:11)
[2024-09-23] MEDS: hyDRALAzine 25 mg Tablet PO ×2 (08:51→17:09)
[2024-09-23] MEDS: lidocaine 5% Patch 1 PATCH TOPICAL ×2 (08:52→20:52)
--- NOTE | 2024-09-23 10:31 | P.PN_ITS ---
Subjective 2 Subjective: poor po intake Vitals/I&O/Wt Last Vital Signs Temp 99.5 F 09/23/24 08:00 Pulse 78 09/23/24 08:00 Resp 15 09/23/24 08:00 BP 157/69 09/23/24 08:00 Pulse Ox 94 09/23/24 08:00 O2 Del Method Room Air 09/23/24 08:00 O2 Flow Rate 3 09/22/24 00:00 09/22/24 09/23/24 09/23/24 22:59 06:59 14:59 Intake Total 120 / 700 1101.667 / 1801.667 120 / 120 Output Total 300 / 1500 Balance 120 / -500 801.667 / 301.667 120 / 120 Weight last 48 hrs Weight 64.013 kg Weight 60.827 kg Physical Exam 2 Narrative: Elderly lady in bed no apparent distress. Vital signs noted. HEENT normocephalic atraumatic. Neck is supple. Lungs clear to auscultation. Heart regular no rubs or gallops. Abdomen is soft positive bowel sounds. Extremities 1+ right sided leg edema left leg trace edema. Upper extremity swelling and tenderness by fracture. Neuro awake alert oriented times 3+. Urinary Catheter Management: Nova: Cath Placed During This Visit: yes Reason for Continuing Indwelling Catheter: Other Urinary Catheter Date of Insertion: 09/22/24 Urinary Catheter Time of Insertion: 18:30 Data 09/23/24 05:33 09/23/24 05:33 A&P Assessment and plan (1) Acute kidney injury superimposed on chronic kidney disease: 88-year-old lady admitted after fall with right humeral fracture. Patient has underlying hypertension diabetes, pulmonary hypertension, heart failure preserved EF with grade 1 diastolic dysfunction. Patient had a creatinine of 2.6 to 2.8 mg/dL in June 2024. 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 1. 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 albumin is normal Urinalysis in June at 3+ protein now has 4+ protein. This can be consistent with diabetic nephropathy. She is 1+ urine blood. -Work up oredered : The patient was using a PPI at home which can cause interstitial nephritis however UA is bland ,unlikely AIN , - patient uses NSAIDs which can also cause interstitial nephritis agree with stopping all NSAIDs [place] 2 inhibitors and PPIs, Will check serum protein electrophoresis and serum immunofixation, ordered ANALI as she is on hydralazine. Ordered ANCA and anti-GBM though less likely to be positive. - Suspect patient have progressive CKD with a creatinine 4-5 range. No acute indication for dialysis, but if renal function continues to get worse we will discuss dialysis options including conservative management versus aggressive measures. 2. 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 Will check PTH and vitamin D levels monitor phosphorus. 3. Anemia : Hemoglobin acceptable for CKD. 4. Humerus fracture ,s/p OR , 5. Metabolic acidosis : on bicarb tabs Patient was seen and examined using audiovisual equipment with the aid of a nurse. The patient consented to telehealth. Plan see above Attestations 2 Medical Necessity Statement*: per michaela Coding Level of Care Code Acute Code for Chg Fwd Diagnoses Acute kidney injury superimposed on chronic kidney disease N17.9; N18.9
[2024-09-23 11:43] LABS: Glucose Point of Care 131 mg/dL (70-110)
[2024-09-23 12:00] VITALS: BP 180/95; PULSE 77; RESP 15; TEMP 36.9; O2SAT 96
[2024-09-23] MEDS: famotidine 20 mg/2 mL INJ IVP ×2 (12:00→22:32)
[2024-09-23] MEDS: FUROsemide 10 mg/mL SDV 4mL 40 MG IVP (12:01)
--- NOTE | 2024-09-23 15:26 | P.PN_ITS ---
Subjective 2 Subjective: Had some bleeding through her bandages and swelling that is crowding the clamshell brace. Up and going to bathroom. Says that pain is mild, but controlled somewhat. Denies other complaints at this time. Medications: Reviewed: Yes Vitals/I&O/Wt Last Vital Signs Temp 98.4 F 09/23/24 12:00 Pulse 77 09/23/24 12:00 Resp 15 09/23/24 12:00 BP 180/95 09/23/24 12:00 Pulse Ox 96 09/23/24 12:00 O2 Del Method Room Air 09/23/24 12:00 O2 Flow Rate 3 09/22/24 00:00 09/23/24 09/23/24 09/23/24 06:59 14:59 22:59 Intake Total 1101.667 / 1801.667 120 / 120 Output Total 300 / 1500 700 / 700 Balance 801.667 / 301.667 -580 / -580 Weight last 48 hrs Weight 141 lb 2 oz Weight 134 lb 1.6 oz Physical Exam 2 Narrative: General: Cooperative patient in no apparent distress. Well developed. HEENT: Normocephalic, Atraumatic. External ears normal. Nasal passages patent without drainage. MMM. Heart: RRR. Resp: LCTA. No respiratory distress, no use of accessory muscles. Abd: Soft, non-tender. Non-distended. Extremities: Swelling in the Right UE with bleeding through the bandages. Bandage removed and incision intact. Skin: Post-operative bruising noted. Neuro: No focal motor or sensory loss. Gait is normal. Urinary Catheter Management: Nova: Cath Placed During This Visit: yes Reason for Continuing Indwelling Catheter: Other Urinary Catheter Date of Insertion: 09/22/24 Urinary Catheter Time of Insertion: 18:30 Data 09/23/24 05:33 09/23/24 05:33 A&P Assessment and plan (1) Humerus shaft fracture: Qualifiers: Encounter type: initial encounter Fracture type: closed Fracture morphology: spiral Fracture alignment: displaced Laterality: right Qualified Code(s): S42.341A - Displaced spiral fracture of shaft of humerus, right arm, initial encounter for closed fracture (2) Acute kidney injury superimposed on chronic kidney disease: (3) Diabetes: Qualifiers: Diabetes mellitus type: type 2 Diabetes mellitus intermediate accountant insulin use: with intermediate accountant use Diabetes mellitus complication status: without complication Qualified Code(s): E11.9 - Type 2 diabetes mellitus without complications; Z79.4 - exterminator helper termite (current) use of insulin (4) Hypertension: Qualifiers: Hypertension type: primary hypertension Qualified Code(s): I10 - Essential (primary) hypertension Plan 88 y/o F admitted for R humeral fracture s/p ORIF of the R humerus. Continue close inpatient monitoring. Ortho is following. Dressing changes performed today. Clamshell brace removed due to swelling. Emphasize elevation of the extremity and ice to help with swelling. Continue glucose checks and SSI. Nephrology consulted and is following. Appreciate recs. K+ improved to 3.8. Na+ at 135. Cr at 5.2 currently. BP remain labile throughout stay, but better controlled. Recheck am labs. Continue PT/OT. Code Status: Full IVF: none DVT PPx: heparin GI PPx: Protonix ABx: none Diet: CC Discharge plan: TBD. Attestations 2 Medical Necessity Statement*: Patient needs inpatient care for management of Right humeral fracture s/p ORIF, acute kidney injury on CKD, nephrology consult, labs and discharge planning. Coding Level of Care Code Acute Code for Chg Fwd Moderate MDM includes number and complexity of problems actively addressed during encounter, amount and/or complexity of data reviewed/ordered and described risk of complication, morbidity or mortality of management as documented Diagnoses Closed displaced spiral fracture of shaft of right humerus, initial encounter S42.341A Encounter type: initial encounter Fracture type: closed Fracture morphology: spiral Fracture alignment: displaced Laterality: right Acute kidney injury superimposed on chronic kidney disease N17.9; N18.9 Type 2 diabetes mellitus without complication, with long-term current use of insulin E11.9; Z79.4 Diabetes mellitus type: type 2 Diabetes mellitus penitentiary insulin use: with intermediate accountant use Diabetes mellitus complication status: without complication Primary hypertension I10 Hypertension type: primary hypertension
[2024-09-23] MEDS: HYDROcodone-acetaminophen 10-325 mg Tablet 1 TAB PO (15:41)
[2024-09-23 16:00] VITALS: BP 171/63; PULSE 71; RESP 17; TEMP 36.6; O2SAT 95
[2024-09-23 16:39] LABS: Glucose Point of Care 224 mg/dL (70-110)
[2024-09-23 20:00] VITALS: BP 129/72; PULSE 63; RESP 17; TEMP 36.6; O2SAT 95
[2024-09-23 20:54] LABS: Glucose Point of Care 152 mg/dL (70-110)
[2024-09-24] VITALS (13 sets, daily range): BP systolic 132–178; BP diastolic 59–91; PULSE 55–76; RESP 16–18; TEMP 36.3–37.3; O2SAT 93–97
[2024-09-24] MEDS: sodium bicarbonate 150 MEQ in dextrose 5% 1,000 ML 100 MEQ IV (02:44)
[2024-09-24 04:38] LABS: Basophils # 0.1 10^3/uL (0.0-0.1); Basophils % 0.5 %; Eosinophils # 0.5 10^3/uL (0.0-0.8); Eosinophils % 4.6 %; Hematocrit 24.2 % (36-47); Lymphocytes # 2.9 10^3/uL (0.8-4.8); Lymphocytes % 25.5 %; Mean Corpuscular HGB Conc 31.4 g/dL (30-55); Mean Corpuscular Volume 98.8 fl (85-98); Mean Platelet Volume 10.9 fL (7.4-10.4); Monocytes # 1.3 10^3/uL (0.2-0.9); Monocytes % 11.7 %; Neutrophils # 6.53 10^3/uL (1.8-7.7); Neutrophils % 57.2 %; Nucleated Red Blood Cells % 0 %; Platelet Count 135 10^3/cmm (157-399); Red Blood Count 2.45 10^6/uL (3.85-5.65); Red Cell Distribution Width 14.5 % (12.1-15.1); White Blood Count 11.42 10^3/uL (3.29-11.43)
[2024-09-24 04:56] LABS: Anion Gap 16.4 (5-19); Blood Urea Nitrogen 56 mg/dL (8-23); Calcium 7.2 mg/dL (8.5-10.5); Carbon Dioxide 24 mmol/L (22-29); Chloride 102 mmol/L (98-107); Creatinine Clr Calc Pharmacy 6.7857; Glucose 100 mg/dL (65-115); Osmolality Calculated 304 mOsm/kg (285-295); Potassium 3.4 mmol/L (3.5-5.1); Sodium 139 mmol/L (136-145)
--- NOTE | 2024-09-24 06:21 | P.PN_ITS ---
Subjective 2 Subjective: no new compliants Medications: Reviewed: Yes Vitals/I&O/Wt Last Vital Signs Temp 99.2 F 09/24/24 04:00 Pulse 76 09/24/24 04:00 Resp 16 09/24/24 04:00 BP 143/71 09/24/24 04:00 Pulse Ox 94 09/24/24 04:00 O2 Del Method Room Air 09/24/24 04:00 O2 Flow Rate 3 09/22/24 00:00 09/23/24 09/23/24 09/24/24 14:59 22:59 06:59 Intake Total 1270 / 1270 240 / 1510 1495 / 3005 Output Total 700 / 700 550 / 1250 1400 / 2650 Balance 570 / 570 -310 / 260 95 / 355 Weight last 48 hrs Weight 64.013 kg Weight 64.013 kg Weight 60.827 kg Physical Exam 2 Narrative: Elderly lady in bed no apparent distress. Vital signs noted. HEENT normocephalic atraumatic. Neck is supple. Lungs clear to auscultation. Heart regular no rubs or gallops. Abdomen is soft positive bowel sounds. Extremities 1+ right sided leg edema left leg trace edema. Upper extremity swelling and tenderness by fracture. Neuro awake alert oriented times 3+. Urinary Catheter Management: Nova: Cath Placed During This Visit: yes Reason for Continuing Indwelling Catheter: Other Urinary Catheter Date of Insertion: 09/22/24 Urinary Catheter Time of Insertion: 18:30 Data 09/25/24 06:37 09/25/24 06:37 A&P Assessment and plan (1) Acute kidney injury superimposed on chronic kidney disease: 88-year-old lady admitted after fall with right humeral fracture. Patient has underlying hypertension diabetes, pulmonary hypertension, heart failure preserved EF with grade 1 diastolic dysfunction. Patient had a creatinine of 2.6 to 2.8 mg/dL in June 2024. 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 1. 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 albumin is normal Urinalysis in June at 3+ protein now has 4+ protein. This can be consistent with diabetic nephropathy. She is 1+ urine blood. -Work up oredered : The patient was using a PPI at home which can cause interstitial nephritis however UA is bland ,unlikely AIN , - patient uses NSAIDs which can also cause interstitial nephritis agree with stopping all NSAIDs [place] 2 inhibitors and PPIs, Will check serum protein electrophoresis and serum immunofixation, ordered ANALI as she is on hydralazine. Ordered ANCA and anti-GBM though less likely to be positive. - Suspect patient have progressive CKD with a creatinine 4-5 range. No acute indication for dialysis, but if renal function continues to get worse we will discuss dialysis options including conservative management versus aggressive measures. 2. 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 Will check PTH and vitamin D levels monitor phosphorus. 3. Anemia : Hemoglobin dropped , monitor , and transfuse PRN 4. Humerus fracture ,s/p OR , 5. Metabolic acidosis : on bicarb tabs Patient was seen and examined using audiovisual equipment with the aid of a nurse. The patient consented to telehealth. Plan see above Attestations 2 Medical Necessity Statement*: per medicne Coding Level of Care Code Acute Code for Chg Fwd Diagnoses Acute kidney injury superimposed on chronic kidney disease N17.9; N18.9
[2024-09-24 07:11] LABS: Glucose Point of Care 146 mg/dL (70-110)
[2024-09-24] MEDS: HYDROcodone-acetaminophen 10-325 mg Tablet 1 TAB PO (10:37)
[2024-09-24] MEDS: metoprolol tartrate 50 mg Tablet 100 MG PO ×2 (10:38→17:29)
[2024-09-24] MEDS: hyDRALAzine 25 mg Tablet PO ×3 (10:38→21:16)
[2024-09-24] MEDS: docusate sodium 100 mg Capsule PO ×2 (10:38→17:29)
[2024-09-24] MEDS: amlodipine 10 mg Tablet PO (10:38)
[2024-09-24] MEDS: insulin lispro 100 unit/1 mL SUBCUT ×2 (10:39→11:22)
[2024-09-24] MEDS: insulin glargine 100 units/1 mL 15 UNIT SUBCUT (10:39)
[2024-09-24 11:13] LABS: Glucose Point of Care 252 mg/dL (70-110)
[2024-09-24] MEDS: sodium chloride 0.9% 1,000 ML 100 ML IV (11:19)
[2024-09-24] MEDS: famotidine 20 mg/2 mL INJ IVP (11:22)
[2024-09-24 12:35] LABS: Anti-Nuclear Antibody Screen POSITIVE (NEGATIVE); Anti-Nuclear Antibody Titer > OR = 1:1280 titer
[2024-09-24 14:19] LABS: Thyroid Stimulating Hormone 4.19 uIU/mL (0.27-4.20)
[2024-09-24 14:34] LABS: KAPPA LIGHT CHAIN, FREE, SERUM 73.8 mg/L (3.3-19.4); KAPPA/LAMBDA LIGHT CHAINS FREE 2.03 (0.26-1.65); LAMBDA LIGHT CHAIN, FREE, SERU 36.4 mg/L (5.7-26.3)
[2024-09-24] MEDS: potassium chloride ER 20 mEq Tablet 40 MEQ PO (14:52)
[2024-09-24] MEDS: sodium bicarbonate 650 mg Tablet PO ×2 (14:53→21:16)
--- NOTE | 2024-09-24 15:42 | PM.PN ---
Subjective Subjective: No acute events overnight. Hospital course, labs appreciated. Seen with family at bedside. Patient lying comfortably in bed, awake and alert. Denies any nausea, vomiting, headache. Bandage soaking a lot as per nursing staff. Dressings being done as per orthopedic team. Medications: Reviewed: Yes Vitals/I&O/Wt Last Vital Signs Temp 98.4 F 09/24/24 11:39 Pulse 68 09/24/24 11:39 Resp 17 09/24/24 11:39 BP 149/76 09/24/24 11:39 Pulse Ox 93 09/24/24 11:39 O2 Del Method Room Air 09/24/24 11:39 O2 Flow Rate 3 09/22/24 00:00 09/24/24 09/24/24 09/24/24 06:59 14:59 22:59 Intake Total 1495 / 3005 1781.667 / 1781.667 Output Total 1400 / 2650 900 / 900 Balance 95 / 355 881.667 / 881.667 Weight last 48 hrs Weight 64.013 kg Weight 64.013 kg Physical Exam Narrative: General: Cooperative patient in no apparent distress. Well developed. HEENT: Normocephalic, Atraumatic. External ears normal. Nasal passages patent without drainage. MMM. Heart: RRR. Resp: LCTA. No respiratory distress, no use of accessory muscles. Abd: Soft, non-tender. Non-distended. Extremities: Swelling in the Right UE with bleeding through the bandages. Bandage removed and incision intact. Skin: Post-operative bruising noted. Neuro: No focal motor or sensory loss. Gait is normal. Urinary Catheter Management: Nova: Cath Placed During This Visit: yes Reason for Continuing Indwelling Catheter: Other Urinary Catheter Date of Insertion: 09/22/24 Urinary Catheter Time of Insertion: 18:30 Data 09/24/24 03:39 09/24/24 03:39 A&P Assessment and plan (1) Humerus shaft fracture: Post-ORIF. Having extreme Saturation through the bandage. Orthopedic on case. For now continue with current dressing. To replace once dressing saturated Physical therapy, anticoagulation as per orthopedic team. Qualifiers: Encounter type: initial encounter Fracture type: closed Fracture morphology: spiral Fracture alignment: displaced Laterality: right Qualified Code(s): S42.341A - Displaced spiral fracture of shaft of humerus, right arm, initial encounter for closed fracture (2) Acute kidney injury superimposed on chronic kidney disease: Baseline creatinine recently within the last 4 months 1.8-2.3. Currently ranging from 4-5. Has remained stable. Nephrology on board. Mild uremia. Medical reconciliation done for nephrotoxic drugs. Monitor urine output. Concerns for new baseline of renal functions as have remained stable over last 2 to 3 days. No plan for dialysis as per nephrology team. Monitor electrolytes. Replace potassium. Continue with Nova catheter for now. Discontinue bicarb drip. Bicarb 24 today. Start on oral bicarb 650 mg 3 times a day. Bring to follow-up with outpatient supervisor counseling and guidance. (3) Diabetes: Slightly uncontrolled. A1c more than 8.5 Continue with Lantus 15 units daily, sliding scale. Will uptitrate as per insulin requirement in next 24 hours. Patient takes Lantus 60 units at home. Qualifiers: Diabetes mellitus complication status: without complication Diabetes mellitus superintendent container terminal insulin use: with usp use Diabetes mellitus type: type 2 Qualified Code(s): E11.9 - Type 2 diabetes mellitus without complications; Z79.4 - manager long term care (current) use of insulin (4) Hypertension: Goal blood pressure less than 140/90 mmHg. Blood pressure is elevated. Currently on amlodipine 10 mg oral daily, metoprolol 100 mg twice daily. Increase hydralazine to 25 mg 3 times daily. Uptitrate as per goal blood pressures. Qualifiers: Hypertension type: primary hypertension Qualified Code(s): I10 - Essential (primary) hypertension (5) Anemia: Target hemoglobin around 8. Trending down to 7.6. Most likely chronic in setting of renal disease getting worse postoperatively. Check reticulocyte count, LDH. Appreciate iron panel. 1 unit of blood transfusion. Hold off on heparin. IV Lasix 40 mg posttransfusion. Plan Discharge plan: Discussed in detail with patient and caregiver at bedside. Patient's plan is to go back and live with her sister. Discussed about possible transition to smoke. For now they would want to try to go home. Agreeable for home health. Code Status: Full IVF: None DVT PPx: Hold heparin, SCDs GI PPx: Protonix ABx: none Diet: Switch to renal diabetic dialysis Attestations Medical Necessity Statement*: Requires further hospitalization for post ORIF post humerus fracture, JANELLE on CKD, anemia biopsy of discharge planning is sought Diagnoses Closed displaced spiral fracture of shaft of right humerus, initial encounter S42.341A Encounter type: initial encounter Fracture type: closed Fracture morphology: spiral Fracture alignment: displaced Laterality: right Acute kidney injury superimposed on chronic kidney disease N17.9; N18.9 Type 2 diabetes mellitus without complication, with long-term current use of insulin E11.9; Z79.4 Diabetes mellitus complication status: without complication Diabetes mellitus superintendent container terminal insulin use: with usp use Diabetes mellitus type: type 2 Primary hypertension I10 Hypertension type: primary hypertension Anemia D64.9
[2024-09-24 15:48] LABS: ALBUMIN 2.6 g/dL (3.8-4.8); ALPHA 1 GLOBULIN 0.4 g/dL (0.2-0.3); ALPHA 2 GLOBULIN 0.9 g/dL (0.5-0.9); BETA 1 GLOBULIN 0.3 g/dL (0.4-0.6); BETA 2 GLOBULIN 0.3 g/dL (0.2-0.5); GAMMA GLOBULIN 0.6 g/dL (0.8-1.7)
[2024-09-24 16:13] LABS: Reticulocyte % 1.5 % (0.5-2.0)
[2024-09-24 16:26] LABS: Lactate Dehydrogenase 241 U/L (135-214)
[2024-09-24 16:52] LABS: Glucose Point of Care 115 mg/dL (70-110)
[2024-09-24] MEDS: sodium chloride 0.9% 100 mL Bag 50 ML IV (17:30)
[2024-09-24 19:14] LABS: Immunofixation Serum Normal pattern.
[2024-09-24 20:27] LABS: Glucose Point of Care 68 mg/dL (70-110)
[2024-09-24] MEDS: calcitriol 0.25 mcg Capsule PO (21:16)
[2024-09-24] MEDS: FUROsemide 10 mg/mL SDV 4mL 40 MG IVP (21:16)
[2024-09-25 03:12] VITALS: BP 152/78; PULSE 73; RESP 16; TEMP 36.9; O2SAT 95
[2024-09-25 06:25] LABS: Glucose Point of Care 117 mg/dL (70-110)
[2024-09-25 06:55] LABS: Basophils # 0.1 10^3/uL (0.0-0.1); Basophils % 0.5 %; Eosinophils # 0.4 10^3/uL (0.0-0.8); Eosinophils % 3.9 %; Hematocrit 29.5 % (36-47); Lymphocytes # 2.9 10^3/uL (0.8-4.8); Lymphocytes % 26.9 %; Mean Corpuscular HGB Conc 32.9 g/dL (30-55); Mean Corpuscular Hemoglobin 30.6 pg (27-33); Mean Corpuscular Volume 93.1 fl (85-98); Mean Platelet Volume 10.6 fL (7.4-10.4); Monocytes # 1.3 10^3/uL (0.2-0.9); Monocytes % 12.2 %; Neutrophils # 5.93 10^3/uL (1.8-7.7); Neutrophils % 55.7 %; Nucleated Red Blood Cells % 0 %; Platelet Count 153 10^3/cmm (157-399); Red Blood Count 3.17 10^6/uL (3.85-5.65); Red Cell Distribution Width 15.3 % (12.1-15.1); White Blood Count 10.64 10^3/uL (3.29-11.43)
[2024-09-25 07:16] LABS: Cholesterol 176 mg/dL (0-200); HDL Cholesterol 40 mg/dL (60-100); LDL Cholesterol Calculated 110 mg/dL (50-129); Magnesium 1.5 mg/dL (1.7-2.3); Triglycerides 129 mg/dL (0-150); VLDL Cholestrol Calculation 26 mg/dL (0-30)
[2024-09-25 07:17] LABS: Alanine Aminotransferase 11 U/L (0-33); Albumin Level 2.4 g/dL (3.5-5.2); Alkaline Phosphatase 87 U/L (35-105); Anion Gap 16.9 (5-19); Aspartate Amino Transferase 19 U/L (0-32); Blood Urea Nitrogen 50 mg/dL (8-23); Calcium 7.8 mg/dL (8.5-10.5); Carbon Dioxide 25 mmol/L (22-29); Chloride 102 mmol/L (98-107); Creatinine Clr Calc Pharmacy 7.4145; Globulin 2.7 g/dL (1.3-4.6); Glucose 118 mg/dL (65-115); Osmolality Calculated 304 mOsm/kg (285-295); Potassium 3.9 mmol/L (3.5-5.1); Sodium 140 mmol/L (136-145); Total Bilirubin 1.2 mg/dL (0.15-1.2); Total Protein 5.1 g/dL (6.6-8.7)
[2024-09-25 07:31] LABS: Folate Level 4.5 ng/mL (4.8-37.3)
[2024-09-25 07:46] VITALS: BP 181/78; PULSE 70; RESP 18; TEMP 36.7; O2SAT 93
[2024-09-25] MEDS: hyDRALAzine 25 mg Tablet PO (08:20)
[2024-09-25] MEDS: docusate sodium 100 mg Capsule PO (08:20)
[2024-09-25] MEDS: amlodipine 10 mg Tablet PO (08:20)
[2024-09-25] MEDS: sodium bicarbonate 650 mg Tablet PO (08:20)
[2024-09-25] MEDS: metoprolol tartrate 50 mg Tablet 100 MG PO (08:20)
[2024-09-25] MEDS: insulin glargine 100 units/1 mL 15 UNIT SUBCUT (08:21)
--- NOTE | 2024-09-25 10:10 | P.PN_ITS ---
Subjective 2 Subjective: feels better Medications: Reviewed: Yes Vitals/I&O/Wt Last Vital Signs Temp 98.1 F 09/25/24 07:46 Pulse 70 09/25/24 07:46 Resp 18 09/25/24 07:46 BP 181/78 09/25/24 07:46 Pulse Ox 93 09/25/24 07:46 O2 Del Method Room Air 09/25/24 07:46 O2 Flow Rate 3 09/22/24 00:00 09/24/24 09/25/24 09/25/24 22:59 06:59 14:59 Intake Total 1630 / 3411.667 0 / 3411.667 480 / 480 Output Total 400 / 1300 900 / 2200 Balance 1230 / 2111.667 -900 / 1211.667 480 / 480 Weight last 48 hrs Weight 62.051 kg Weight 64.013 kg Physical Exam 2 Narrative: Elderly lady in bed no apparent distress. Vital signs noted. HEENT normocephalic atraumatic. Neck is supple. Lungs clear to auscultation. Heart regular no rubs or gallops. Abdomen is soft positive bowel sounds. Extremities 1+ right sided leg edema left leg trace edema. Upper extremity swelling and tenderness by fracture. Neuro awake alert oriented times 3+. Urinary Catheter Management: Nova: Cath Placed During This Visit: yes Reason for Continuing Indwelling Catheter: Other Urinary Catheter Date of Insertion: 09/22/24 Urinary Catheter Time of Insertion: 18:30 Data 09/25/24 06:37 09/25/24 06:37 A&P Assessment and plan (1) Acute kidney injury superimposed on chronic kidney disease: 88-year-old lady admitted after fall with right humeral fracture. Patient has underlying hypertension diabetes, pulmonary hypertension, heart failure preserved EF with grade 1 diastolic dysfunction. Patient had a creatinine of 2.6 to 2.8 mg/dL in June 2024. And she states to me that she has longstanding CKD and follows with a pest control supervisor as an outpatient. 1. 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 albumin is normal Urinalysis in June at 3+ protein now has 4+ protein. This can be consistent with diabetic nephropathy. She is 1+ urine blood. -Work up oredered : The patient was using a PPI at home which can cause interstitial nephritis however UA is bland ,unlikely AIN , - patient uses NSAIDs which can also cause interstitial nephritis agree with stopping all NSAIDs [place] 2 inhibitors and PPIs, - Noted rise in serum free light chains but IF normal with no monoclonal proteins . ,+ ANALI and + Ds DNA --> no signs of systemic lupus , may have Renal lupus OR drug induced lupus from hydralazine - Do not restart hydralazine @ DC , -will not persue renal biopsy given her advanged age , comorbidities and advanced CKD - Suspect patient have progressive CKD with a creatinine 4-5 range. No acute indication for dialysis, Follow up with out pt Nephlology in 2 weeks 2. 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 Will check PTH and vitamin D levels monitor phosphorus. 3. Anemia : Hemoglobin dropped , monitor , and transfuse PRN 4. Humerus fracture ,s/p OR , 5. Metabolic acidosis : on bicarb tabs Patient was seen and examined using audiovisual equipment with the aid of a nurse. The patient consented to telehealth. Plan see above Attestations 2 Medical Necessity Statement*: per michaela Coding Level of Care Code Acute Code for Chg Fwd Diagnoses Acute kidney injury superimposed on chronic kidney disease N17.9; N18.9
--- NOTE | 2024-09-25 10:39 | P.DS_ITS ---
Discharge Providers Date of Admission: 09/17/24 16:20 Date of Discharge: September 25, 2024 Attending Provider at Admission: Ezio Veras DO Attending Provider at Discharge: Ilya Fowler MD Consults: Orthopedics: Dr. Gris Mckeon nephrology Primary Care Provider: Teja Yost MD Diagnoses at Discharge Discharge Diagnosis (1) Acute kidney injury superimposed on chronic kidney disease: Status: Acute Reason for Visit Reason for Visit: R. arm injury Brief History: History as per HPI: Vannessa Ramriez is a 88 year old female presents to the ER status post mechanical fall. She was found to have a right humerus fracture. Orthopedics was consulted and felt that the patient will require surgery and thus patient was admitted. It should also be noted that the patient was in acute on chronic renal failure. Hospital Course Hospital Course Patient was admitted to the hospital for further evaluation and management of humerus fracture. Orthopedics was consulted. She underwent right humeral intramedullary nail placement on 09/21. Postoperatively patient did have occasions of saturation through the dressing which was managed through constant wound dressings. Patient was found to have significantly worsened renal function than to her baseline. She was found to have a creatinine of 4.6 on admission with a basel ine of 2.6 around 2 months ago. Creatinine continue to worsen going up to 5.2. Nephrology was consulted. Patient's urine output remains stable. Creatinine remained stable even after IV hydration. As patient's urine output remains stable nephrology decided against dialysis with advised to follow-up with her freelance digital project manager as an outpatient. During hospitalization she was found to have uncontrolled hypertension for which her home dose of hydralazine was increased to 50 mg 3 times a day along with continuation of home dose of metoprolol and amlodipine. She was also found to have acute on chronic anemia for which she required to 1 unit of blood transfusion after which hemoglobin improved to 9.7. Her home dose of Lantus was decreased from 60 units to 15 units given her severe JANELLE on CKD. Safe discharge plan were discussed in detail with the patient and she requested to be transferred back home with her caregiver. During hospitalization she was found to have a positive ANALI panel and kappa lambda protein chains. Results are faxed over to patient's outpatient freelance digital project manager where patient will most likely require a renal biopsy. Safe discharge plan were discussed in detail with the patient she verbalized understanding. Physical Exam Narrative: General: Cooperative patient in no apparent distress. Well developed. HEENT: Normocephalic, Atraumatic. External ears normal. Nasal passages patent without drainage. MMM. Heart: RRR. Resp: LCTA. No respiratory distress, no use of accessory muscles. Abd: Soft, non-tender. Non-distended. Extremities: Swelling in the Right UE with bleeding through the bandages. Bandage removed and incision intact. Skin: Post-operative bruising noted. Neuro: No focal motor or sensory loss. Gait is normal. Urinary Catheter Management: Nova: Cath Placed During This Visit: yes Reason for Continuing Indwelling Catheter: Other Urinary Catheter Date of Insertion: 09/22/24 Urinary Catheter Time of Insertion: 18:30 Discharge Data Studies Completed and Pending Completed Studies During Hospitalization Category Date Time Status CT shoulder RT wo con* [id number] Routine Cat Scan 09/18/24 08:17 Completed XR chest 1V portable [id number] Stat Exams 09/17/24 14:40 [place] [id number] Stat Exams 09/17/24 14:29 [place] [id number] Routine Exams 09/19/24 18:31 [place] [id number] Routine Exams 09/21/24 00:00 Completed XR shoulder RT min 2V* [id number] Stat Exams 09/17/24 13:07 Completed CV renal doppler [id number] Routine Ultrasound 09/20/24 13:54 Completed Pending at discharge Category Date Time Status MAG [Magnesium] AM LABS Lab 09/26/24 04:00 Ordered MAG [Magnesium] AM LABS Lab 09/27/24 04:00 Ordered Radiology Impressions Shoulder X-Ray 09/17/24 13:07 IMPRESSION: Suspect minimally displaced surgical neck fracture of the proximal humerus overlapping the humeral shaft. Presumably the patient's condition limits a good plain film examination. Nonenha nced CT scan of the shoulder would resolve the issue if needed. Chest X-Ray 09/17/24 14:40 IMPRESSION: No acute chest abnormality. Shoulder CT 09/18/24 08:17 IMPRESSION: 1. Previously described mid to distal third known humerus fracture not included on this examination. This is seen at the edge of the [id number] and on the counterintelligence specialist imaging with overriding fracture fragments. 2. No shoulder or humeral head fractures. Humerus X-Ray 09/21/24 00:00 IMPRESSION: Intraoperative imaging during ORIF RIGHT humerus. Laboratory Results WBC 10.64 10^3/uL (3.29-11.43) 09/25/24 06:37 RBC 3.17 10^6/uL (3.85-5.65) L 09/25/24 06:37 Hgb 9.70 g/dL (11.27-16.99) L 09/25/24 06:37 Hct 29.5 % (36-47) L 09/25/24 06:37 MCV 93.1 fl (85-98) 09/25/24 06:37 MCH 30.6 pg (27-33) 09/25/24 06:37 MCHC 32.9 g/dL (30-55) 09/25/24 06:37 RDW 15.3 % (12.1-15.1) H 09/25/24 06:37 Plt Count 153 10^3/cmm (157-399) L 09/25/24 06:37 MPV 10.6 fL (7.4-10.4) H 09/25/24 06:37 Neut % (Auto) 55.7 % 09/25/24 06:37 Lymph % (Auto) 26.9 % 09/25/24 06:37 Leake % (Auto) 12.2 % 09/25/24 06:37 Eos % (Auto) 3.9 % 09/25/24 06:37 Baso % (Auto) 0.5 % 09/25/24 06:37 Reticulocyte % (Auto) 1.5 % (0.5-2.0) 09/24/24 03:39 Neut # (Auto) 5.93 10^3/uL (1.8-7.7) 09/25/24 06:37 Lymph # (Auto) 2.9 10^3/uL (0.8-4.8) 09/25/24 06:37 Leake # (Auto) 1.3 10^3/uL (0.2-0.9) H 09/25/24 06:37 Eos # (Auto) 0.4 10^3/uL (0.0-0.8) 09/25/24 06:37 Baso # (Auto) 0.1 10^3/uL (0.0-0.1) 09/25/24 06:37 Nucleated RBC % (auto) 0 % 09/25/24 06:37 Nucleated RBCs # 0.0 /100WBC 09/25/24 06:37 Sodium 140 mmol/L (136-145) 09/25/24 06:37 Potassium 3.9 mmol/L (3.5-5.1) 09/25/24 06:37 Chloride 102 mmol/L (98-107) 09/25/24 06:37 Carbon Dioxide 25 mmol/L (22-29) 09/25/24 06:37 Anion Gap 16.9 (5-19) 09/25/24 06:37 BUN 50 mg/dL (8-23) H 09/25/24 06:37 Creatinine 4.6 mg/dL (0.5-0.9) H 09/25/24 06:37 GFR Calculation Not Reportable 09/25/24 06:37 Glucose 118 mg/dL (65-115) H 09/25/24 06:37 POC Glucose 117 mg/dL (70-110) H 09/25/24 06:21 Calculated Osmolality 304 mOsm/kg (285-295) H 09/25/24 06:37 Uric Acid 7.0 mg/dL (2.4-5.7) H 09/20/24 15:26 Calcium 7.8 mg/dL (8.5-10.5) L 09/25/24 06:37 Phosphorus 5.0 mg/dL (2.5-4.5) H 09/23/24 05:33 Magnesium 1.5 mg/dL (1.7-2.3) L 09/25/24 06:37 Iron 52 ug/dL (37-145) 09/21/24 05:32 TIBC 158 mcg/dl 09/21/24 05:32 % Saturation 32.9 % (20-50) 09/21/24 05:32 Unsat Iron Binding 106 ug/dL (112-347) L 09/21/24 05:32 Ferritin 212 ng/mL (15-150) H 09/21/24 05:32 Total Bilirubin 1.2 mg/dL (0.15-1.2) 09/25/24 06:37 AST 19 U/L (0-32) 09/25/24 06:37 ALT 11 U/L (0-33) 09/25/24 06:37 Alkaline Phosphatase 87 U/L (35-105) 09/25/24 06:37 Lactate Dehydrogenase 241 U/L (135-214) H 09/24/24 03:39 Total Protein 5.1 g/dL (6.6-8.7) L 09/25/24 06:37 Albumin 2.4 g/dL (3.5-5.2) L 09/25/24 06:37 Globulin 2.7 g/dL (1.3-4.6) 09/25/24 06:37 Fblmu-1-Dgoqxnrrk 0.4 g/dL (0.2-0.3) H 09/20/24 15:26 Hhguf-8-Erymdiwwb 0.9 g/dL (0.5-0.9) 09/20/24 15:26 Mcrp-9-Zsxmmpbr 0.3 g/dL (0.4-0.6) L 09/20/24 15:26 Ihln-8-Dlisnwsf 0.3 g/dL (0.2-0.5) 09/20/24 15:26 Gamma Globulins 0.6 g/dL (0.8-1.7) L 09/20/24 15:26 Abnorm Protein Band 1 Not Reportable 09/20/24 15:26 Triglycerides 129 mg/dL (0-150) 09/25/24 06:37 Cholesterol 176 mg/dL (0-200) 09/25/24 06:37 LDL Cholesterol, Calc 110 mg/dL (50-129) 09/25/24 06:37 Total VLDL Cholesterol 26 mg/dL (0-30) 09/25/24 06:37 HDL Cholesterol 40 mg/dL (60-100) L 09/25/24 06:37 Cholesterol/HDL Ratio 4.40 mg/dL (0.0-4.40) 09/25/24 06:37 Vitamin B12 365 pg/mL (232-1245) 09/20/24 15:26 25-OH Vitamin D Total 6 ng/mL (30-100) L 09/21/24 05:32 Folate 4.5 ng/mL (4.8-37.3) L 09/25/24 06:37 TSH 4.19 uIU/mL (0.27-4.20) 09/24/24 03:39 PTH Intact 179.7 pg/mL (15-65) H 09/21/24 05:32 Calcium (PTH Intact) 7.9 mg/dL (8.5-10.5) L 09/21/24 05:32 Urine Color Yellow (Yellow) 09/20/24 18:30 Urine Appearance Clear (CLEAR) 09/20/24 18:30 Urine pH 5.5 (5-7) 09/20/24 18:30 Ur Specific [place] 1.026 (1.005-1.030) 09/20/24 18:30 Urine Protein 4+ (Negative) A 09/20/24 18:30 Urine Glucose (UA) 1+ (Normal) H 09/20/24 18:30 Urine Ketones Trace (Negative) 09/20/24 18:30 Urine Blood Negative (Negative) 09/20/24 18: Urine Nitrate Negative (Negative) 09/20/24 18:30 Urine Bilirubin Negative (Negative) 09/20/24 18:30 Urine Urobilinogen 0.2 mg/dL (Negative) 09/20/24 18:30 Ur Leukocyte Esterase Negative (Negative) 09/20/24 18:30 Urine RBC 0-2 /hpf (0-2) 09/20/24 18:30 Urine WBC 0-5 /hpf (0-5) 09/20/24 18:30 Ur Eosinophil Smear Not Reportable 09/20/24 18:30 Ur Squamous Epith Cells 6-10 /hpf (0-5) 09/20/24 18:30 Amorphous Sediment Not Reportable 09/20/24 18:30 Urine Bacteria None seen /hpf (NONE) 09/20/24 18:30 Hyaline Casts 4.11 /lpf 09/20/24 18:30 Urine Eosinophils No eosinophils seen 09/20/24 18:30 Ur Random Sodium 47 mmol/L 09/20/24 18:30 Ur Random Potassium 40 mmol/L 09/20/24 18:30 Ur Random Chloride 41 mmol/L 09/20/24 18:30 U Abnormal Prot Band 2 Not Reportable 09/20/24: U Abnormal Prot Band 3 Not Reportable 09/20/24: Pro Electrophoresis Int See note 09/20/24: Serum Immunofixation Normal pattern. 09/20/24: ANALI Screen Positive (NEGATIVE) A 01/16/25 15:26 ANALI Titer > or = 1:1280 titer A 09/20/24 15:26 ANALI Pattern A 09/20/24 15:26 Anti-ds DNA IgG Ab 14 IU/mL H 09/20/24 15:26 Glomerular Base Mem IgG <1.0 AI 09/20/24 15:26 Free [place] Light Chains 73.8 mg/L (3.3-19.4) H 09/20/24 15:26 Free Lambda Light Chain 36.4 mg/L (5.7-26.3) H 09/20/24 15:26 Free [place]/Lambda Ratio 2.03 (0.26-1.65) H 09/20/24 15:26 Hepatitis C Antibody Non-reactive (Nonreactive) 09/20/24 15:26 Blood Type O Positive 09/24/24 14:17 Rho(D) Type Rh positive 09/24/24 14:17 Antibody Screen Negative 09/24/24 14:17 Crossmatch See Detail 09/24/24 14:17 Vitals Last Vital Signs Temp 98.1 F 09/25/24 07:46 Pulse 70 09/25/24 07:46 Resp 18 09/25/24 07:46 BP 181/78 09/25/24 07:46 Pulse Ox 93 09/25/24 07:46 O2 Del Method Room Air 09/25/24 07:46 O2 Flow Rate 3 09/22/24 00:00 Discharge Plan Discharge Patient Disposition: Home Health Service Condition: Stable Prescriptions: Continued pantoprazole 40 mg tablet,delayed release (DR/EC) 40 mg PO BID furosemide 40 mg tablet 40 mg PO .EVERY OTHER DAY metoprolol tartrate 100 mg tablet 100 mg PO BID sodium bicarbonate 650 mg tablet 650 mg PO TID amlodipine 10 mg tablet 10 mg PO DAILY calcitriol 0.25 mcg capsule 0.25 mcg PO .3X WEEKLY (DME) pen needle, diabetic [BD Ultra-Fine Short Pen Needle] 31 gauge x 5/16 needle MISCELLANEOUS Changed hydralazine 25 mg tablet 50 mg PO TID 30 Days Qty: 180 5RF insulin glargine [Lantus Solostar U-100 Insulin] 100 unit/mL (3 mL) insulin pen 15 unit SUBCUT DAILY Qty: 15 0RF Discharge Orders: Discharge Order (Routine); Ordered 09/25/24 Ordered By: Ilya Fowler Other Ambulatory Orders: DME: Walker (Order) Location: None Selected Ordered By: Ilya Fowler Referrals: Devin Landry DO [Physician] - 10/04/24 10:15 am Teja Yost MD [Primary Care Provider] - 10/04/24 10:00 am Discharge Diet: As Directed Discharge Activity: Resume usual activity and Increase activity as tolerated Patient Instructions: Acute Wound Care (DC), Opioid Safety, Post Anesthesia Care Activity Restrictions/Additional Instructions: Check your blood pressure daily at home maintain a blood pressure diary. Goal blood pressures less than 140/90 mmHg. Dose of hydralazine has been changed to 50 mg 3 times a day. Check your blood sugars before meal at least 2 times a day. Maintain a blood sugar diary and follow-up with your primary care provider within next 2 weeks for further adjustment of insulin. For now take Lantus 15 units daily. You should follow-up with your outpatient freelance digital project manager at the earliest for a possible kidney biopsy. Repeat CBC and CMP with your primary care provider within next 1 week. You are being discharged from the hospital today during which time you have been under the care of Dr. Landry. You had a right humerus fracture. You were treated for this injury with right humeral nail. You may resume you normal diet (including any special diets as directed by your primary doctor) as well as your home medications. You should follow up with you primary doctor if you have any questions regarding medication you took prior to your stay in the hospital. You may take your pain medication as prescribed. After the first few days, take your pain medication as needed. Do not drive or drink alcohol while taking your pain medication. Always keep your surgical incision/dressing clean and dry. If you experience increasing pain at your incision site, redness, swelling, increasing discharge, foul odors, or fevers (greater than 100.4), night sweats or chills you should call the office at the above number. If you feel this is an emergency you should be evaluated in the Emergency Department of a nearby hospital. Orthopedic Patient Instructions Summary: Weight Bearing: Nonweightbearing right upper extremity Activity: As tolerated. Diet: Carb consistent renal. Wound Care: Keep dressing clean and dry. Pain Medication: Take only as needed. Ice, rest and elevation will be of great benefit. Please plan to follow-up wl Dr Landry in 2 weeks. You will need to call the clinic [phone] to schedule this visit. Thank you far allowing me to participate in your care. Do not hesitate to call the office with any questions or concerns. Discharge Attestations Time Spent in Discharge Care*: greater than 30 min Specific Discharge Activities: educating patient, educating and/or supporting family/caregiver, discussing with pcp/other providers, discussing with watch caser/social workers/dc planners, documenting/other paperwork and evaluating patient/reviewing data Status at Discharge: Cognitive status at discharge: cognitively intact , Behavioral status at discharge: cooperative , Functional status at discharge: uses cane/walker , Overall status at discharge: patient is progressing back to baseline Quality Metrics Clinical Quality Measures [ No reported AMI, CVA or VTE this stay] Coding Level of Care Code 14204 Total time (in minutes) for Discharge: 60 Diagnoses Acute kidney injury superimposed on chronic kidney disease N17.9; N18.9
[2024-09-25 11:27] LABS: Glucose Point of Care 176 mg/dL (70-110)
[2024-09-25 11:38] VITALS: BP 162/61; PULSE 60; RESP 18; TEMP 37.1; O2SAT 92
[2024-09-25 12:34] VITALS: BP 162/61; PULSE 60; RESP 18; TEMP 37.1; O2SAT 92
== END 2024-09-25 12:36 | disposition home health service (06) | DRG 493 ==
LOC: ER 14:34 → ER IP 16:20 → MEDSURG 22:19
PROVIDERS: Family Medicine; Hospitalist; Internal Medicine; Internal Medicine Nephrology; Orthopaedic Surgery; Student in an Organized Health Care Education/Training Program; Admitting Provider Internal Medicine; Emergency Provider Family Medicine; PCP Family Medicine; Visit Provider Student in an Organized Health Care Education/Training Program
PROC: 0PSF06Z Reposition Right Humeral Shaft with Intramedullary Internal Fixation Device, Open Approach (ICD-10-PCS; CPT 24516; principal; 2024-09-21 09:25)
DX: S42.341A Displaced spiral fracture of shaft of humerus, right arm, initial encounter for closed fracture (principal); E87.20 Acidosis, unspecified; N17.9 Acute kidney failure, unspecified; I13.0 Hypertensive heart and chronic kidney disease with heart failure and stage 1 through stage 4 chronic kidney disease, or unspecified chronic kidney disease; N18.4 Chronic kidney disease, stage 4 (severe); I50.30 Unspecified diastolic (congestive) heart failure; W19.XXXA Unspecified fall, initial encounter; E11.22 Type 2 diabetes mellitus with diabetic chronic kidney disease; D64.9 Anemia, unspecified; R11.0 Nausea; Z79.4 Long term (current) use of insulin
CPT/HCPCS: 36415; 36416; 36430; 51702; 71045; 73030; 73060; 73200; 76000; 80048; 80053; 80061; 80069; 81001; 82306; 82310; 82436; 82607; 82728; 82746; 82962; 83520; 83540; 83550; 83615; 83735; 83883; 83970; 84100; 84133; 84155; 84165; 84300; 84443; 84550; 85025; 85045; 85999; 86038; 86225; 86334; 86803; 86850; 86900; 86920; 93005; 93975; 96361; 96372; 96374; 96375; 96376; 97116; 97163; 97167; 97530; 97535; 97760; 99285; C1713; J1100; J1644; J1815; J1940; J2270; J2405; J2704; J2710; J2765; J3010; J3490; J7030; J7070; J7799; L3980; P9016; Q3014

== ENCOUNTER → 2024-10-16 14:24 | Outpatient (BNVA) | payer MEDICARE, SELFPAY | PROVIDERS: PCP Family Medicine; Visit Provider Orthopaedic Surgery | DX: S42.341A Displaced spiral fracture of shaft of humerus, right arm, initial encounter for closed fracture (principal); X58.XXXA Exposure to other specified factors, initial encounter | CPT/HCPCS: 73060; 99024 ==

== ENCOUNTER → 2024-11-13 13:29 | Outpatient (BNVA) | payer MEDICARE, SELFPAY | PROVIDERS: PCP Family Medicine; Visit Provider Orthopaedic Surgery | DX: S42.341A Displaced spiral fracture of shaft of humerus, right arm, initial encounter for closed fracture (principal); X58.XXXA Exposure to other specified factors, initial encounter | CPT/HCPCS: 73060; 99213 ==

== ENCOUNTER → 2024-11-21 12:42 | Outpatient (BNVA) | payer MEDICARE, SELFPAY | PROVIDERS: PCP Family Medicine; Visit Provider Podiatrist Foot & Ankle Surgery | DX: E11.42 Type 2 diabetes mellitus with diabetic polyneuropathy (principal); L60.3 Nail dystrophy; Z79.4 Long term (current) use of insulin; G62.9 Polyneuropathy, unspecified | CPT/HCPCS: 11721; 99203 ==

== ENCOUNTER → 2024-12-11 15:34 | Outpatient (BNVA) | payer MEDICARE, SELFPAY | PROVIDERS: PCP Family Medicine; Visit Provider Orthopaedic Surgery | DX: Z01.818 Encounter for other preprocedural examination (principal); R73.09 Other abnormal glucose; S42.341A Displaced spiral fracture of shaft of humerus, right arm, initial encounter for closed fracture; X58.XXXA Exposure to other specified factors, initial encounter | CPT/HCPCS: 36415; 80053; 83036; 85025; 99214 ==

== ENCOUNTER 2025-01-04 05:41 | Day surgery (SDC) | payer MEDICARE, SELFPAY ==
[2025-01-04] VITALS (7 sets, daily range): BP systolic 106–165; BP diastolic 48–71; PULSE 56–65; RESP 18–20; TEMP 36.2–36.7; O2SAT 92–98; BMI 32.1
--- NOTE | 2025-01-04 06:11 | ANES.PREANE2 ---
Pre-Anesthetic Assessment Height/Weight: Height 5 ft 1 in Preop Diagnosis: Painful orthopedic hardware Operation Date: 01/04/25 07:00 Proposed Procedures p Hardware Removal Humerus(Right) - Devin Landry, DO Was Beta Lilian taken within 24 hours: Yes Was Clonidine taken within 24 hours: N/A Social No alcohol and No tobacco Exam alert, oriented x 3 and clear to auscultation bilaterally A-fib Airway Submandibular: within normal limits Cervical ROM: within normal limits Mallampati: Class II Dentition: false Anesthetic Plan ASA status: 3 Anesthesia: [facility] (specify below) Other: No prior issues with anesthesia NPO since yesterday evening History of insulin-dependent DM, preop BS 102 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 Last taken 01/02/2025 Labs reviewed from 12/11/2024. K+ 5.6 at that time. Will recheck BMP this morning Recent EKG showing A-fib with LVH Echo 2023 showing EF 55 to 60%. RVSP 55-60. Moderate to severe pulmonary hypertension Plan for preop nerve block with possible MAC sedation. Will convert to LMA if needed Medications/Allergies Home Medications ?Medication ?Instructions ?Recorded ?Confirmed ?Last Taken ?Type metoprolol tartrate 100 mg tablet 100 mg PO BID 06/15/24 01/03/25 01/04/25 History pen needle, diabetic 31 gauge x 06/15/24 12/11/24 Unknown History 01/18 (BD Ultra-Fine Short Pen Needle) sodium bicarbonate 650 mg tablet 650 mg PO TID 06/15/24 01/03/25 01/03/25 History pantoprazole 40 mg tablet,delayed 40 mg PO BID 09/17/24 01/03/25 01/04/25 History release insulin glargine 100 unit/mL (3 15 unit (0.15 mL) SUBCUT DAILY #15 09/25/24 01/03/25 01/03/25 Rx mL) subcutaneous pen (Lantus mL Solostar U-100 Insulin) Compression sleeve #1 ea 11/13/24 12/11/24 Unknown Rx apixaban 2.5 mg tablet (Eliquis) 2.5 mg PO BID 01/02/25 01/03/25 01/02/25 History calcitriol 0.25 mcg capsule 0.25 mcg PO QDAY 01/02/25 01/03/25 01/03/25 History diltiazem HCl 60 mg tablet 60 mg PO QID 01/02/25 01/03/25 01/03/25 History ergocalciferol (vitamin D2) 1,250 1,250 mcg PO .weekly 01/02/25 01/03/25 12/31/24 History mcg (50,000 unit) capsule furosemide 40 mg tablet 80 mg PO QDAY 01/02/25 01/03/25 01/03/25 History vitamin B complex with vit C-folic 1 tab PO DAILY 01/02/25 01/03/25 01/03/25 History acid 800 mcg-zinc 12.5 mg tablet (RenaPlex) Allergies Allergy/AdvReac Type Severity Reaction Status Date / Time Penicillins Allergy ALGY-Hives Verified 01/04/25 06:08 [facility] Anesthesia Medical History Acute kidney injury superimposed on chronic kidney disease JANELLE (acute kidney injury) Diabetes Atypical chest pain Hyperkalemia CHF (congestive heart failure) Social History Smoking and tobacco/nicotine status: never used tobacco/nicotine Data Anesthesia Cardiac Studies: Echocardiogram 06/16/24
[2025-01-04] MEDS: sodium chloride 0.9% 1,000 ML 30 ML IV (06:14)
--- NOTE | 2025-01-04 06:26 | W.PM.OPSUD ---
Surgery/Procedure H&P Update DATE OF PROCEDURE: January 04, 2025 DATE H&P PERFORMED: 12/11/24 H&P UPDATE INFORMATION: I have reviewed H&P completed within last 30 days, I have examined patient prior to procedure and No changes to prior documentation PREOP DIAGNOSIS: Painful orthopedic hardware PLANNED PROCEDURE: Operation Date: 01/04/25 07:00 Proposed Procedures p Hardware Removal Humerus(Right) - Devin Landry DO
[2025-01-04 06:43] LABS: Anion Gap 19.9 (5-19); Blood Urea Nitrogen 49 mg/dL (8-23); Calcium 8.8 mg/dL (8.5-10.5); Carbon Dioxide 23 mmol/L (22-29); Chloride 100 mmol/L (98-107); Creatinine Clr Calc Pharmacy 6.7717; Glucose 110 mg/dL (65-115); Osmolality Calculated 302 mOsm/kg (285-295); Potassium 3.9 mmol/L (3.5-5.1); Sodium 139 mmol/L (136-145)
--- NOTE | 2025-01-04 07:00 | ANES.PROC ---
Anesthesia Procedures Procedure/Date: 01/04/25 Nerve Block ^: Nerve Block 1: Main Anesthesia: other (100 mcg fentanyl) Time Out Performed: Yes Consent: requested by attending/covering physician and from patient Nerve block location: supraclavicular Anesthesia monitors applied: pulse oximetry, EKG, BP cuff and oxygen Nerve block position: supine Anesthetic Used: ropivicaine 0.5% Amount of anesthesia used (mL): 30 Ultrasound used to: recognize landmarks Nerve Stimulator Used?: Yes Interscalene/Femoral BLK: other needle (pjunk 4inch) Injection: neg aspiration of heme Patient Tolerated Procedure: well Complications: none
--- NOTE | 2025-01-04 07:01 | SUR.PREOP ---
interscalenic block preformed to right side. 30ml of 0.5% ropivicaine used. patient tolerated well
[2025-01-04 07:35] LABS: Glucose Point of Care 102 mg/dL (70-110)
[2025-01-04] MEDS: clindamycin 600 MG/50 ML PREMIX 50 MG IV (07:50)
--- NOTE | 2025-01-04 08:33 | PM.OP ---
Operative Report Date of procedure: January 04, 2025 Pre-op diagnosis: Painful hardware right humerus Post-op diagnosis: same Procedure done: Removal of deep hardware from right humerus Surgeon: Devin Landry DO Estimated blood loss (mL): 5 Procedure: Removal of deep hardware from right humerus There is what he is referring Shorty was placed in the supine position. Arteries appear well-padded. Patient's prepped a muscle fashion. Skin incisions made over the previous skin incision dissection was made down to the bone screws identified screws backed out AP lateral fluoroscopy showed the screws removed. Wounds were irrigated closed with Vicryl and Monocryl suture. Sterile dressings applied patient transferred the PACU in stable addition.
--- NOTE | 2025-01-04 09:20 | ANE.PACU2 ---
Inpatient post-anesthesia follow up: Airway intact: Yes Vital signs: Temperature 97.6 F Pulse Rate 58 Respiratory Rate 18 Blood Pressure 156/66 Pulse Oximetry 93 Oxygen Delivery Me thod Room Air Oxygen Flow Rate Fraction of Inspir ed Oxygen Hydration adequate: Yes Nausea and vomiting: No Pain level: 1 Mental status: Baseline
--- NOTE | 2025-01-04 10:06 | XR_ITS ---
WS: [id number] Right elbow, C-arm fluoroscopy views, 01/04/2025 Clinical Data: or pic, hardware removal Comparison: Right arm and humerus, 12/07/2024 Findings: Dr. Landry removed the distal locking screw. XR/XR elbow RT 2V [id number] Impression: Removal of the distal orthopedic screw.
== END 2025-01-04 09:25 | disposition home or self-care (01) ==
PROVIDERS: PCP Family Medicine; Visit Provider Orthopaedic Surgery
PROC: (CPT 20680; principal; 2025-01-04 07:00)
DX: T84.84XA Pain due to internal orthopedic prosthetic devices, implants and grafts, initial encounter (principal); E11.22 Type 2 diabetes mellitus with diabetic chronic kidney disease; I48.91 Unspecified atrial fibrillation; I50.9 Heart failure, unspecified; Y79.3 Surgical instruments, materials and orthopedic devices (including sutures) associated with adverse incidents; N18.9 Chronic kidney disease, unspecified; Z79.899 Other long term (current) drug therapy; Z79.01 Long term (current) use of anticoagulants; Z79.4 Long term (current) use of insulin; Z88.0 Allergy status to penicillin
CPT/HCPCS: 20680; 36416; 73070; 76000; 80048; 82962; J2704; J3490; J7030

== ENCOUNTER → 2025-01-10 12:34 | Outpatient (BNVA) | payer MEDICARE, SELFPAY | PROVIDERS: PCP Family Medicine; Visit Provider Internal Medicine | DX: I48.91 Unspecified atrial fibrillation (principal); Z79.01 Long term (current) use of anticoagulants; I13.2 Hypertensive heart and chronic kidney disease with heart failure and with stage 5 chronic kidney disease, or end stage renal disease; E11.22 Type 2 diabetes mellitus with diabetic chronic kidney disease; N18.6 End stage renal disease; I50.9 Heart failure, unspecified; Z79.4 Long term (current) use of insulin; Z99.2 Dependence on renal dialysis; Z87.891 Personal history of nicotine dependence; R07.9 Chest pain, unspecified | CPT/HCPCS: 93005; 99204 ==

== ENCOUNTER → 2025-01-15 16:16 | Outpatient (BNVA) | payer MEDICARE, SELFPAY | PROVIDERS: PCP Family Medicine; Visit Provider Orthopaedic Surgery | DX: M79.603 Pain in arm, unspecified (principal) | CPT/HCPCS: 73060 ==

== ENCOUNTER 2025-01-15 16:43 | Outpatient (CLI) | payer MEDICARE, SELFPAY | END 2025-01-15 16:44 | disposition home or self-care (01) | LOC: SPT 16:46 | PROVIDERS: PCP Family Medicine; Visit Provider Orthopaedic Surgery | DX: Z46.89 Encounter for fitting and adjustment of other specified devices (principal); M25.521 Pain in right elbow | CPT/HCPCS: 99024; L3761 ==

== ENCOUNTER → 2025-03-22 09:27 | Outpatient (BNVA) | payer MEDICARE, SELFPAY | PROVIDERS: PCP Physician Assistant; Visit Provider Nurse Practitioner Family | DX: R07.89 Other chest pain (principal); I48.91 Unspecified atrial fibrillation; Z79.01 Long term (current) use of anticoagulants; I10 Essential (primary) hypertension; E11.9 Type 2 diabetes mellitus without complications; Z79.4 Long term (current) use of insulin; Z87.891 Personal history of nicotine dependence | CPT/HCPCS: 99213 ==

== ENCOUNTER → 2025-04-15 14:50 | Outpatient (BNVA) | payer MEDICARE, SELFPAY | PROVIDERS: PCP Physician Assistant; Visit Provider Nurse Practitioner Family | DX: L57.8 Other skin changes due to chronic exposure to nonionizing radiation (principal); L81.4 Other melanin hyperpigmentation; D48.5 Neoplasm of uncertain behavior of skin; L57.0 Actinic keratosis; L56.8 Other specified acute skin changes due to ultraviolet radiation | CPT/HCPCS: 11102; 17000; 99204 ==

== ENCOUNTER 2025-07-03 12:17 | Outpatient (CLI) | payer MEDICARE, SELFPAY | END 2025-07-03 12:18 | disposition home or self-care (01) | LOC: RT 12:20 | PROVIDERS: PCP Physician Assistant; Visit Provider Otolaryngology | DX: R05.3 Chronic cough (principal) | CPT/HCPCS: 94010 ==

== ENCOUNTER → 2025-07-22 13:58 | Outpatient (BNVA) | payer MEDICARE, SELFPAY | PROVIDERS: PCP Physician Assistant; Visit Provider Internal Medicine | DX: I48.91 Unspecified atrial fibrillation (principal); I11.0 Hypertensive heart disease with heart failure; I50.9 Heart failure, unspecified; Z79.01 Long term (current) use of anticoagulants | CPT/HCPCS: 99214 ==

== ENCOUNTER → 2025-07-23 09:34 | Outpatient (BNVA) | payer MEDICARE, SELFPAY | PROVIDERS: PCP Physician Assistant; Visit Provider Podiatrist Foot & Ankle Surgery | DX: E11.42 Type 2 diabetes mellitus with diabetic polyneuropathy (principal); L60.3 Nail dystrophy; L60.8 Other nail disorders; Z79.4 Long term (current) use of insulin; G62.9 Polyneuropathy, unspecified | CPT/HCPCS: 11721 ==

== ENCOUNTER 2025-08-21 12:45 | Outpatient (CLI) | payer MEDICARE, SELFPAY ==
--- NOTE | 2025-08-21 12:56 | CT_ITS ---
WS: [id number] CT chest w con* [id number] HISTORY: CHRONIC COUGH TECHNIQUE: Axial imaging performed through the thorax. Coronal and sagittal reformats are submitted. All CT scans at [facility] use at least one of these dose optimization techniques: automated exposure control; mA and/or kV adjustment per patient size (includes targeted exams where dose is matched to clinical indication); or iterative reconstruction. CONTRAST: Omnipaque 350; 100 mL IV. DLP: 466.58 mGy.cm COMPARISON: Chest radiograph 03/19/2025 Lungs and central airway: Lung volumes are slightly decreased due to limited inspiration. No pulmonary mass or nodule. No pneumonia. No bronchiectasis. Pleura: Normal. No pleural effusion. Heart and pericardium: Mild LEFT heart enlargement. No pericardial effusion. No RIGHT heart strain. Mediastinum and anshu: No pathologically enlarged lymph nodes. Vessels: Mildly ectatic aorta and pulmonary arteries. Mild atherosclerosis. No aneurysms or occlusions. Chest wall and lower neck: LEFT thyroid nodule 1.8 cm. Upper abdomen: Moderate to large hiatal hernia. Numerous foci of free air noted within the upper abdomen. Severe atrophy of the kidneys as visualized with multiple acquired cysts. No adrenal mass. Prior cholecystectomy. Cirrhotic liver. Osseous structures: Advanced degenerative changes in the thoracic spine. Degenerative disc disease and degenerative curvature. Prior ORIF RIGHT humerus. CT/CT chest w con* [id number] IMPRESSION: 1. Free intraperitoneal air identified within the upper abdomen. Patient needs to be evaluated at this time for GI tract perforation. 2. No pulmonary mass or pneumonia. 3. No mediastinal or hilar adenopathy. 4. Mild LEFT heart enlargement. 5. LEFT thyroid nodule is 1.8 cm. 6. Large hiatal hernia. 7. Atrophic kidneys with numerous acquired cysts. 8. Prior cholecystectomy. 9. Cirrhotic liver. Notified SAMIRA Reyes at 08/22/2025 8:52 AM. Message LEFT with Vickie reynoso.
[2025-08-21] MEDS: iohexol 350 mg/mL 500 mL Btl (per mL) IV (13:22)
== END 2025-08-21 12:46 | disposition home or self-care (01) ==
LOC: RAD 12:46
PROVIDERS: PCP Physician Assistant; Visit Provider Otolaryngology
DX: R05.3 Chronic cough (principal); I51.7 Cardiomegaly; R59.0 Localized enlarged lymph nodes; K44.9 Diaphragmatic hernia without obstruction or gangrene; N26.1 Atrophy of kidney (terminal); Z90.49 Acquired absence of other specified parts of digestive tract; K74.60 Unspecified cirrhosis of liver; M47.814 Spondylosis without myelopathy or radiculopathy, thoracic region; M51.34 Other intervertebral disc degeneration, thoracic region; E04.1 Nontoxic single thyroid nodule
CPT/HCPCS: 71260

== ENCOUNTER 2025-08-22 11:04 | Emergency (ER) | payer MEDICARE, SELFPAY ==
--- NOTE | 2025-08-22 11:10 | XR_ITS ---
WS: [id number] Portable AP upright chest, 08/22/2025 Clinical Data: dyspnea/cough Comparison: Two-view chest, 03/19/2025 Findings: No nodules, masses or effusions are seen. The heart is slightly enlarged. The pulmonary vascularity is not increased. No pneumonia or pneumothorax is seen. The aortic arch and descending thoracic aorta show mild tortuosity. There is a hiatal hernia behind the heart. There is internal fixation of a old proximal right humeral fracture with orthopedic screws and an intramedullary esperanza. XR/XR chest 1V portable [id number] Impression: Cardiomegaly and atherosclerosis.
[2025-08-22 11:12] VITALS: BP 186/78; PULSE 73; RESP 16; TEMP 36.8; O2SAT 95
[2025-08-22 11:50] LABS: Hematocrit 29.1 % (36-47); Hemoglobin 9.60 g/dL (11.27-16.99); Mean Corpuscular HGB Conc 33.0 g/dL (30-55); Mean Corpuscular Hemoglobin 32.3 pg (27-33); Mean Corpuscular Volume 98.0 fl (85-98); Nucleated Red Blood Cells % 0 %; Platelet Count 144 10^3/cmm (157-399); Red Blood Count 2.97 10^6/uL (3.85-5.65); White Blood Count 8.68 10^3/uL (3.29-11.43)
--- NOTE | 2025-08-22 11:52 | W.ED.ABDPA2 ---
HPI - Abdominal Pain General: Chief Complaint: Abdominal Pain Stated Complaint: abd pain (sent by ENT doc) Time Seen by Provider: 08/22/25 11:29 History of Present Illness: 89-year-old female had a CT of her chest yesterday Because of chronic cough. Radiology read the CT this morning and noted free air in the abdomen on the upper portion of the abdomen that was included in the CT scan patient was contacted and advised to come to the emergency room. Associated Symptoms: Denies chills, dysuria and fever(s) Related Data Home Medications ?Medication ?Instructions ?Recorded ?Confirmed pen needle, diabetic 31 gauge x 06/15/24 08/22/2501/18 (BD Ultra-Fine Short Pen Needle) pantoprazole 40 mg tablet,delayed 40 mg PO BID 09/17/24 08/22/25 release calcitriol 0.25 mcg capsule 0.25 mcg PO QDAY 01/02/25 08/22/25 vitamin B complex with vit C-folic 1 tab PO DAILY 01/02/25 08/22/25 acid 800 mcg-zinc 12.5 mg tablet (RenaPlex) furosemide 80 mg tablet 80 mg PO DAILY 03/22/25 08/22/25 insulin glargine-yfgn 100 unit/mL 5 unit SUBCUT BEDTIME 03/22/25 08/22/25 (3 mL) subcutaneous pen (Semglee (insulin glargine-yfgn) Pen) metolazone 5 mg tablet 5 mg PO DAILY 03/22/25 08/22/25 cetirizine 5 mg tablet 5 mg PO DAILY 08/22/25 08/22/25 clonidine 0.2 mg/24 hr weekly See Rx Instructions .Route .COMPLEX 08/22/25 08/22/25 transdermal patch fluticasone propionate 50 2 spray intranasal DAILY PRN 08/22/25 08/22/25 mcg/actuation nasal allergies spray,suspension isosorbide mononitrate 30 mg 15 mg PO DAILY 08/22/25 08/22/25 tablet,extended release 24 hr losartan 100 mg tablet 100 mg PO DAILY 08/22/25 08/22/25 metoprolol succinate 100 mg 100 mg PO BID 08/22/25 08/22/25 tablet,extended release 24 hr sevelamer carbonate 800 mg tablet 800 mg PO TID 08/22/25 08/22/25 Previous Rx's ?Medication ?Instructions ?Recorded Compression sleeve #1 ea 11/13/24 diltiazem HCl 240 mg 240 mg PO DAILY #90 caps 01/10/25 capsule,extended release 24 hr (Cardizem CD) Elbow Brace #1 ea 01/15/25 apixaban 2.5 mg tablet (Eliquis) 2.5 mg PO BID #180 tabs 01/23/25 Allergies Allergy/AdvReac Type Severity Reaction Status Date / Time Penicillins Allergy ALGY-Hives Verified 08/22/25 11:18 Review of Systems Const: Denies: fever(s) or chills Card: Denies: chest pain Resp: Denies: dyspnea GI: Denies: abdominal pain : Denies: dysuria, urinary frequency or urinary urgency Musc: Denies: neck pain or back pain Skin/Breast: Denies: rash PFSH ED PFSH: Medical History Acute kidney injury superimposed on chronic kidney disease JANELLE (acute kidney injury) Diabetes Atypical chest pain Hyperkalemia CHF (congestive heart failure) Social History Smoking and tobacco/nicotine status: former use of tobacco/nicotine (40 years ago) Second hand smoke exposure: No Alcohol intake: never Substance/Drug Use: never Physical Exam Const: GENERAL APPEARANCE: cooperative ORIENTATION/CONSCIOUSNESS: Yes awake HENMT: COMMON NORMALS: normocephalic, atraumatic and hearing grossly normal bilaterally HEAD & SCALP: normocephalic and atraumatic Resp: COMMON NORMALS: normal respiratory effort, No retractions, No use of accessory muscles and clear to auscultation bilaterally AUSCULTATION: clear to auscultation bilaterally Cardio: COMMON NORMALS: regular rate, regular rhythm and No murmurs present (Cardio) RATE: regular rate RHYTHM: regular rhythm GI: COMMON NORMALS: Soft to palpation and No hepatosplenomegaly present AUSCULTATION: Yes normoactive bowel sounds PALPATION: Yes Soft to palpation, No Tenderness to palpation present (GI), No Guarding due to palpation present (GI) and Yes No hepatosplenomegaly present Extremity: COMMON NORMALS: normal to inspection, capillary refill normal, no clubbing, cyanosis or edema, no calf tenderness and no pedal edema Skin: COMMON NORMALS: no rashes or lesions noted GENERAL SKIN EXAM: no rashes or lesions noted Course Vital Signs: Vital signs: Vital Signs Temperature 98.3 F 08/22/25 11:12 Pulse Rate 69 08/22/25 14:45 Respiratory Rate 16 08/22/25 11:12 Blood Pressure 166/69 08/22/25 14:45 Pulse Oximetry 97 08/22/25 14:45 Oxygen Delivery Me thod Room Air 08/22/25 14:45 MDM - Abdominal Pain Medical Decision Making Medical decision making Social determinants: Patient requires family assistance for peritoneal dialysis and accessing medical care I reviewed the patient's medical record. I reviewed the patient's current home meds. 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 Chemistries consistent with known history of chronic end-stage renal disease on dialysis. UA did not show signs of infection. Imaging: CT abdomen area resolved no acute findings noted. Chest x-ray did not show any infiltrates or effusions no free air under the abdomen, cardiomegaly noted Assessment of risk Level of risk: Moderate to high Hospitalization considerations: Initial exam unremarkable. Given CT findings up from the outpatient setting there is possibility for admission if there is acute findings or evidence of SBP Reexamination: Unchanged Assessment and plan: The goal the patient's findings are due to air from use of her PD catheter. The physician who had read the initial outpatient CT had contacted her primary looking for possible reasons for free air in the abdomen. When she she was advised there was no known reason she directed the patient to the ED for further evaluation on arrival here she has no significant symptoms. I believe the findings noted on yesterday's CT of the chest the upper abdomen appear to have air result of air from manipulation of the PD catheter. She has no signs of spontaneous bacterial peritonitis at this time no signs of sepsis we will discharge her home and have her follow-up with her primary care doctor also talked to her ocean export coordinator. Lab Data 08/22/25 11:39 08/22/25 11:39 Labs/Radiology: Radiology Impressions Chest X-Ray 08/22/25 11:10 Impression: Cardiomegaly and atherosclerosis. Abdomen/Pelvis CT 08/22/25 12:19 IMPRESSION: Peritoneal dialysis catheter. The few tiny foci of free air previously noted presumably from the peritoneal dialysis catheter. No evidence of bowel perforation. Laboratory Results WBC 8.68 10^3/uL (3.29-11.43) 08/22/25 11:39 RBC 2.97 10^6/uL (3.85-5.65) L 08/22/25 11:39 Hgb 9.60 g/dL (11.27-16.99) L 08/22/25 11:39 Hct 29.1 % (36-47) L 08/22/25 11:39 MCV 98.0 fl (85-98) 08/22/25 11:39 MCH 32.3 pg (27-33) 08/22/25 11:39 MCHC 33.0 g/dL (30-55) 08/22/25 11:39 RDW 13.0 % (12.1-15.1) 08/22/25 11:39 Plt Count 144 10^3/cmm (157-399) L 08/22/25 11:39 MPV 10.4 fL (7.4-10.4) 08/22/25 11:39 Neut % (Auto) 59.5 % 08/22/25 11:39 Lymph % (Auto) 28.0 % 08/22/25 11:39 Long % (Auto) 7.8 % 08/22/25 11:39 Eos % (Auto) 3.6 % 08/22/25 11:39 Baso % (Auto) 0.8 % 08/22/25 11:39 Neut # (Auto) 5.16 10^3/uL (1.8-7.7) 08/22/25 11:39 Lymph # (Auto) 2.4 10^3/uL (0.8-4.8) 08/22/25 11:39 Long # (Auto) 0.7 10^3/uL (0.2-0.9) 08/22/25 11:39 Eos # (Auto) 0.3 10^3/uL (0.0-0.8) 08/22/25 11:39 Baso # (Auto) 0.1 10^3/uL (0.0-0.1) 08/22/25 11:39 Nucleated RBC % (auto) 0 % 08/22/25 11:39 Nucleated RBCs # 0.0 /100WBC 08/22/25 11:39 Sodium 132 mmol/L (136-145) L 08/22/25 11:39 Potassium 4.7 mmol/L (3.5-5.1) 08/22/25 11:39 Chloride 97 mmol/L (98-107) L 08/22/25 11:39 Carbon Dioxide 19 mmol/L (22-29) L 08/22/25 11:39 Anion Gap 20.7 (5-19) H 08/22/25 11:39 BUN 47 mg/dL (8-23) H 08/22/25 11:39 Creatinine 5.5 mg/dL (0.5-0.9) H 08/22/25 11:39 GFR Calculation Not Reportable 08/22/25 11:39 Glucose 184 mg/dL (65-115) H 08/22/25 11:39 Calculated Osmolality 291 mOsm/kg (285-295) 08/22/25 11:39 Lactic Acid 1.0 mmol/L (0.5-2.2) 08/22/25 11:39 Calcium 8.7 mg/dL (8.5-10.5) 08/22/25 11:39 Total Bilirubin 0.3 mg/dL (0.15-1.2) 08/22/25 11:39 AST 18 U/L (0-32) 08/22/25 11:39 ALT 10 U/L (0-33) 08/22/25 11:39 Alkaline Phosphatase 122 U/L (35-105) H 08/22/25 11:39 Total Protein 6.1 g/dL (6.6-8.7) L 08/22/25 11:39 Albumin 3.9 g/dL (3.5-5.2) 08/22/25 11:39 Globulin 2.2 g/dL (1.3-4.6) 08/22/25 11:39 Lipase 36 U/L (13-60) 08/22/25 11:39 Urine Color Yellow (Yellow) 08/22/25 13:40 Urine Appearance Clear (CLEAR) 08/22/25 13:40 Urine pH 7.0 (5-7) 08/22/25 13:40 Ur Specific [place] 1.011 (1.005-1.030) 08/22/25 13:40 Urine Protein 2+ (Negative) A 08/22/25 13:40 Urine Glucose (UA) Trace (Normal) H 08/22/25 13:40 Urine Ketones Negative (Negative) 08/22/25 13:40 Urine Blood Trace (Negative) A 08/22/25 13:40 Urine Nitrate Negative (Negative) 08/22/25 13:40 Urine Bilirubin Negative (Negative) 08/22/25 13:40 Urine Urobilinogen 0.2 mg/dL (Negative) 08/22/25 13:40 Ur Leukocyte Esterase Negative (Negative) 08/22/25 13:40 Urine RBC 0-2 /hpf (0-2) 08/22/25 13:40 Urine WBC 0-5 /hpf (0-5) 08/22/25 13:40 Ur Squamous Epith Cells 0-5 /hpf (0-5) 08/22/25 13:40 Amorphous Sediment Not Reportable 08/22/25 13:40 Urine Bacteria None seen /hpf (NONE) 08/22/25 13:40 Hyaline Casts 0-4 /lpf H 08/22/25 13:40 All radiology interpretation(s) finalized by discharge Discharge Plan Discharge Patient Disposition: Home Clinical Impression: Pneumoperitoneum, Anemia, Peritoneal dialysis status, End stage renal disease on dialysis Diabetes Qualifiers: Diabetes mellitus type: type 2 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 Diabetes mellitus complication status: without complication Qualified Code(s): E11.9 - Type 2 diabetes mellitus without complications Condition: Stable Prescriptions: No Action RenaPlex 800 mcg- 12.5 mg tablet 1 tab PO DAILY insulin glargine-yfgn [Semglee(insulin glarg-yfgn)Pen] 100 unit/mL (3 mL) insulin pen 5 unit SUBCUT BEDTIME furosemide 80 mg tablet 80 mg PO DAILY metolazone 5 mg tablet 5 mg PO DAILY (DME) Compression sleeve See Rx Instructions .Route .MEDSUPPLY Qty: 1 0RF Rx Instructions: As directed diltiazem HCl [Cardizem CD] 240 mg capsule,extended release 24hr 240 mg PO DAILY Qty: 90 3RF (DME) Elbow Brace See Rx Instructions .Route .MEDSUPPLY Qty: 1 0RF Rx Instructions: As directed Eliquis 2.5 mg tablet 2.5 mg PO BID Qty: 180 3RF pantoprazole 40 mg tablet,delayed release (DR/EC) 40 mg PO BID (DME) pen needle, diabetic [BD Ultra-Fine Short Pen Needle] 31 gauge x 5/16 needle MISCELLANEOUS calcitriol 0.25 mcg capsule 0.25 mcg PO QDAY clonidine 0.2 mg/24 hr patch weekly See Rx Instructions .ROUTE .COMPLEX Rx Instructions: APPLY ONE PATCH TO SKIN AND CHANGE ONCE A WEEK cetirizine 5 mg tablet 5 mg PO DAILY metoprolol succinate 100 mg tablet extended release 24 hr 100 mg PO BID losartan 100 mg tablet 100 mg PO DAILY fluticasone propionate 50 mcg/actuation spray,suspension 2 spray INTRANASAL DAILY PRN (Reason: allergies) sevelamer carbonate 800 mg tablet 800 mg PO TID isosorbide mononitrate 30 mg tablet extended release 24 hr 15 mg PO DAILY Discharge Orders: Discharge ED (Routine); Ordered 08/22/25 Ordered By: Chilo Horan Referrals: Sarah Hassan PA [Primary Care Provider, [facility] [employer]] Patient Instructions: Abdominal Pain (ED), Opioid Safety, Pain Management, Patient Portal & Halie Instructions Activity Restrictions/Additional Instructions: Thank you for choosing [facility] for your healthcare needs today. It is very important that you follow up as instructed or that you return to the Emergency Department should you have concerns or if your condition changes or worsens in any way. Emergency department visits are focused on emergent conditions, in some cases you may require further evaluation on an outpatient basis. You were seen in the emergency room with complaints of finding of air in the abdomen on the CT scan. I believe the air is a result of using the peritoneal dialysis catheter. We repeated CT of the abdomen directly there was no sign of significant pathology or significant amounts of air. He also reported dark stools. Rectal exam done today did not show any blood in the stool. Recommend that you follow-up with your primary care doctor to recheck your hemoglobin as it was mildly low today this can frequently be seen in patients who have chronic kidney disease. (Please note that included in your discharge packet is information concerning opioid safety and pain management. This information is given to all patients were discharged from the ER regardless of their discharge diagnosis or the medicines they usually take or are prescribed.) Print Language: Malay Coding Level of Care Code ED Front Office Specialist for Matt Shin
[2025-08-22 12:10] LABS: Alanine Aminotransferase 10 U/L (0-33); Albumin Level 3.9 g/dL (3.5-5.2); Alkaline Phosphatase 122 U/L (35-105); Anion Gap 20.7 (5-19); Aspartate Amino Transferase 18 U/L (0-32); Blood Urea Nitrogen 47 mg/dL (8-23); Calcium 8.7 mg/dL (8.5-10.5); Carbon Dioxide 19 mmol/L (22-29); Chloride 97 mmol/L (98-107); Globulin 2.2 g/dL (1.3-4.6); Glucose 184 mg/dL (65-115); Lipase 36 U/L (13-60); Osmolality Calculated 291 mOsm/kg (285-295); Potassium 4.7 mmol/L (3.5-5.1); Sodium 132 mmol/L (136-145); Total Protein 6.1 g/dL (6.6-8.7)
[2025-08-22 12:11] LABS: Lactic Sepsis W/Reflex 1.0 mmol/L (0.5-2.2)
--- NOTE | 2025-08-22 12:19 | CT_ITS ---
WS: [id number] CT ABDOMEN PELVIS TECHNIQUE: Noncontrast CT of the abdomen and pelvis with coronal and sagittal reformatted images. CLINICAL INFORMATION: Abdominal pain COMPARISON: CT chest 08/21/2025 DLP: 616.[address] scans at [facility] use at least one of these dose optimization techniques: automated exposure control; mA and/or kV adjustment per patient size (includes targeted exams where dose is matched to clinical indication); or iterative reconstruction. FINDINGS: Lung bases are well aerated. Moderate esophageal canal hernia. Cholecystectomy clips. Cirrhotic liver. Splenic granulomas. Splenic artery calcification. Fatty atrophy of the pancreas. Adrenal glands are normal. Atrophic kidneys bilaterally with bilateral renal cysts. Normal caliber abdominal aortic aortic calcification. Mild diffuse body wall anasarca. Osteopenia. Sigmoid diverticulosis. Trace fluid in the pelvis. Advanced spondylitic changes lumbar spine. Vascular calcification. CT/CT abdomen pelvis wo con [id number] IMPRESSION: Peritoneal dialysis catheter. The few tiny foci of free air previously noted pr esumably from the peritoneal dialysis catheter. No evidence of bowel perforatio n.
[2025-08-22 12:53] VITALS: BP 205/81; PULSE 65; O2SAT 94
--- OUTSIDE RECORDS SUMMARY | 2025-08-22 12:56 | XMS_ITS | Clinical Summary ---
Author Organization [facility] Address [address] [place] [address] Phone Care Team Providers Care Senior Marketing Analyst Name Role Phone Teja Yost MD Primary Care Provider [phone] Allergies Active Allergy Reactions Criticality Noted Date Comments Penicillin G 01/17/2023 Medications atorvastatin (Lipitor) 40 mg tablet Take 40 mg by mouth 1 (one) time each day. 06/16/20 20 Active OneTouch Ultra Blue Test Strip test strip USE STRIP TO CHECK GLUCOSE THREE TIMES DAILY 12/27/19 20 Active Lantus Solostar U-100 Insulin 100 unit/mL (3 mL) injection See administration instructions. INJECT UP TO 60 UNITS SUBCUTANEOUSLY ONCE DAILY DIRECTED 07/19/20 20 Active Pentips 31 gauge x 5/16 needle USE WITH INSULIN DAILY 08/16/20 20 Active potassium chloride CR (K-Tab) 20 mEq ER tablet Take 1 tablet by mouth 1 (one) time each day. 10/11/19 22 Active Januvia 50 mg tablet Take 50 mg by mouth 1 (one) time each day. 01/05/20 23 Active furosemide (Lasix) 40 mg tabletIndications :Peripheral edema,Chronic kidney disease, unspecified Take 1 tablet (40 mg total) by mouth 1 (one) time each day. TAKE 2 TABLETS BY MOUTH IN THE MORNING AND 1 IN THE EVENING 30 tablet 1 02/22/20 23 Active Additional Information Patient taking differently:40 mg oral Daily,(No instructions reported), Reported on 01/11/2024 metoprolol tartrate (Lopressor) 100 mg tabletIndications :Primary hypertension TAKE 1 TABLET BY MOUTH TWICE DAILY WITH MEALS 180 tablet 1 07/26/20 23 Active calcitrioL (Rocaltrol) 0.25 mcg capsuleIndication s:CKD (chronic kidney disease), stage IV (CMS/HCC) Take 1 capsule (0.25 mcg total) by mouth 3 (three) times a week. 36 capsule 1 11/28/19 24 Active sodium bicarbonate 650 mg tabletIndications :Metabolic acidosis Take 1 tablet (650 mg total) by mouth 3 (three) times a day. 180 tablet 1 11/28/19 24 Active valsartan (Diovan) 80 mg tabletIndications :Primary hypertension Take 1 tablet (80 mg total) by mouth 1 (one) time each day. 90 tablet 1 01/09/20 24 Active sodium zirconium cyclosilicate (Lokelma) 10 gram packetIndications :Hyperkalemia Take 10 g by mouth 1 (one) time each day. Only take if directed to 10 packet 01/09/20 24 Active amLODIPine (Norvasc) 10 mg tabletIndications :Primary hypertension Take 1 tablet (10 mg total) by mouth 1 (one) time each day. 90 tablet 09/25/19 25 Active Active Problems No known active problems Immunizations Immunization Administration Dates Next Due Influenza Split High Dose Preservative Free IM 08/11/2020,07/17/2019,11/20/2018,2015 Influenza, Quadrivalent, High Dose 06/30/2022, Pneumococcal Conjugate 13-Valent 07/15/2016 Pneumococcal Conjugate, 20-Valent 03/02/2023 Tdap 03/02/2023 Zoster 07/15/2016 Zoster, Recombinant 03/02/2023 Family History Medical History Relation Comments Cervical cancer Sister Relation Status Comments Sister Social History Tobacco Use Types Packs/Day Years Used Date Smoking Tobacco: Never Smokeless Tobacco: Never Tobacco Cessation:Counseling Given: Not Answered Alcohol Use Standard Drinks/Week Comments Never 0 (1 standard drink = 0.6 oz pur e alcohol) AUDIT-C Answer Date Recorded Q1: How often do you have a drink containing alcohol? Never 11/29/2023 Q2: How many drinks containi ng alcohol do you have on a typical day when you are drinking? Patient does not drink Q3: How often do you have si x or more drinks on one occasion? 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 Gender Identity Not on file Sexual Orientation Not on file Last Filed Vital Signs Vital Sign Reading Time Taken Comments Blood Pressure 179/105 01/09/2024 11:19 AM CDT Pulse 79 01/09/2024 11:19 AM CDT Temperature 35.9 C (96.7 F) 01/09/2024 11:19 AM CDT Respiratory Rate - - Oxygen Saturation 98% 01/09/2024 11:19 AM CDT Inhaled Oxygen Concentration - - Weight 76.7 kg (169 lb 3.2 oz) 01/09/2024 11:19 AM CDT Height 154.9 cm (5' 0.98 ) 01/09/2024 11:19 AM C DT Body Mass Index 31.99 01/09/2024 11:19 AM CDT Plan of Treatment Health Maintenance Due Date Last Done Comments Lipid Panel 1935 Depression Screening 12/28/1953 Social Drivers of Health (SDoH) 12/28/1955 Mammogram 1977 Medicare Initial AWV [id number] 12/05/2003 RSV Vaccines (1 - 1-dose 75+ series) 2012 MMR Vaccines (1 of 1 - Standard series) 08/12/2016 Varicella Vaccines (1 of 2 - 13+ 2-dose series) 08/12/2016 DTaP,Tdap,and Td Vaccines (2 - Td or Tdap) 03/30/2023 03/02/2023 Zoster Vaccines (3 of 3) 04/27/2023 03/02/2023, 07/06 Complete Fall Risk Assessment 05/03/2024 05/03/2023, 05/03/2023, 05/03/2023, Additional history exists Creatinine Level 01/03/2025 01/04/2024, , 11/18/2023, Additional history exists Potassium Level 01/03/2025 01/04/2024, 12/05, 11/18/2023, Additional history exists COVID-19 Vaccines ( - 2024- season) 2025 Influenza Vaccine (#1) 2025 2, 06/30/2021, 08/11/2020, Additional history exists Pneumococcal Vaccines: 50+ Years Completed 03/02/2023, 07/15/2016 HIB Vaccines Aged Out No longer eligi ble based on patient's age to complete this topic HPV Vaccines Aged Out No longer eligi ble based on patient's age to complete this topic Hepatitis A Vaccines Aged Out No long er eligible based on patient's age to complete this topic Hepatitis B Vaccines Aged Out No long er eligible based on patient's age to complete this topic IPV Vaccines Aged Out No longer eligi ble based on patient's age to complete this topic Meningococcal B Vaccine Aged Out No l onger eligible based on patient's age to complete this topic Meningococcal Vaccine Aged Out No josué dara eligible based on patient's age to complete this topic Rotavirus Vaccines Aged Out No longer eligible based on patient's age to complete this topic Procedures Procedure Name Priority Date/Time Associated Diagnosis Comments RENAL FUNCTION PANEL Routine 01/04/2024 Stage 4 chronic kidney disease (CMS/HCC) from Last 3 Months or Most Recently Relevant to Health Maintenance Results * Renal Function Panel (01/04/2024) Blood Venous blood specimen / Unknown Rahat Herring MD LAB BLOOD ORDERABLES Final Res ult [facility] [address] [address] from Last 3 Months or Most Recently Relevant to Health Maintenance Insurance [facility] MEDICARE ADVANTAGE Care Teams Senior Marketing Analyst Relationship Specialty Start Date End Date Teja Yost MD [address] [place] [phone] PCP - General Family Medicine 07/17/20
--- OUTSIDE RECORDS SUMMARY | 2025-08-22 12:56 | XMS_ITS | Encounter Summary ---
Author Organization [facility] [employer] [facility], [facility] Address [address] [place] [address] Phone Care Team Providers Care Platform Loader Name Role Phone Teja Yost MD Primary Care Provider Encounter Details Date Type Department Care Team (Late st Contact Info) Description 03/30/2024 Orders Only [facility] [employer] [facility] [address] [facility] [place] [address] [place] [address] Chronic kidney disease, stage 4 (severe) (HCC) Social History Tobacco Use Types Packs/Day Years Used Date Smoking Tobacco: Never Assessed Comments Unknown Sex and Gender Information Value Date Recorded Sex Assigned at Not on file Legal Sex Female 11:45 AM EDT Gender Identity Not on file Sexual Orientation Not on file documented as of this encounter Plan of Treatment Not on file documented as of this encounter Visit Diagnoses Diagnosis Chronic kidney disease, stage 4 (severe) (HCC) documented in this encounter Care Teams Platform Loader Relationship Specialty Start Date End Date Teja Yost MD [address] [place] [address] PCP - General Family Medicine 03/29/24 documented as of this encounter
--- OUTSIDE RECORDS SUMMARY | 2025-08-22 12:56 | XMS_ITS | Encounter Summary ---
Author Organization [facility] Address [address] [address] Phone Care Team Providers Care Gizzard Skin Remover Name Role Phone Teja Yost MD Primary Care Provider [phone] Encounter Details Date Type Department Care Team (Late st Contact Info) Description 12/10/2020 Orders Only [facility] [address] [address] Gorge Davalos, TECHNICAL ACCOUNT MANAGER-IV [address] [address] Chronic kidney disease, unspecified; Peripheral edema Social History Tobacco Use Types Packs/Day Years Used Date Smoking Tobacco: Never Smokeless Tobacco: Never Alcohol Use Standard Drinks/Week Comments Never 0 (1 standard drink = 0.6 oz pur e alcohol) AUDIT-C Answer Date Recorded Q1: How often do you have a drink containing alc ohol? Never 09/12/2020 Q2: How many drinks containi ng alcohol do you have on a typical day when you are drinking? Not asked 09/12/2020 Q3: How often do you have six or more drinks on one occasion? 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 CLEANER Gender Identity Not on file Sexual Orientation Not on file documented as of this encounter Plan of Treatment Not on file documented as of this encounter Procedures Procedure Name Priority Date/Time Associated Diagnosis Comments BASIC METABOLIC PANEL Routine 12/11/2020 3:34 PM CDT Chronic kidney disease, unspecified Peripheral edema documented in this encounter Results * Basic Metabolic Panel (12/11/2020 3:34 PM CDT) Blood Venous blood specimen / Unknown us Rahat Herring MD LAB BLOOD ORDERABLES Final Res ult [facility]TER[facility] LAB documented in this encounter Visit Diagnoses Diagnosis Chronic kidney disease, unspecified Peripheral edema Edema documented in this encounter Care Teams Gizzard Skin Remover Relationship Specialty Start Date End Date Teja Yost MD [address] [place] [phone] PCP - General Family Medicine 07/17/20 documented as of this encounter
--- OUTSIDE RECORDS SUMMARY | 2025-08-22 12:56 | XMS_ITS | Encounter Summary ---
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 * Telephone Encounter - Marion Salazar - 12/22/2022 2:50 PM CDT Being referred for chronic mucus in throat documented in this encounter Plan of Treatment Not on file documented as of this encounter Visit Diagnoses Not on filedocumented in this encounter Care Teams Manager Chinese Relationship Specialty Start Date End Date Teja Yost MD [address] [place] [phone] PCP - General Family Medicine 07/17/20 documented as of this encounter
--- OUTSIDE RECORDS SUMMARY | 2025-08-22 12:56 | XMS_ITS | Clinical Summary ---
Author Organization [facility] Address [address] [place] [address] Phone Care Team Providers Care Wrestling Coach Name Role Phone Teja Yost MD Primary Care Provider [phone] Allergies Active Allergy Reactions Criticality Noted Date Comments Penicillins Rash Low 10/05/2024 Medications sodium bicarbonate 650 mg tablet Take 650 mg by mouth 2 times daily. 4 Active RenaPlex-D 800 mcg-12.5 mg -2,000 unit Tablet Take 1 Tablet by mouth daily. 5 Active calcitRIOL (ROCALTROL) 0.25 mcg capsule Take 0.25 mcg by mouth. 4 Active pantoprazole (PROTONIX) 40 mg Tablet, Delayed Release (E.C.) Take 40 mg by mouth daily. 5 Active insulin glargine (LANTUS) 100 unit/mL vial Inject 5 Units by subcutaneous injection daily at bedtime. Active metoprolol succinate (TOPROL XL) 100 mg Extended Release 24 hour tablet Take 1 Tablet (100 mg) by mouth 2 times daily. 60 Tablet 1 5 Active furosemide (Lasix) 80 mg tablet Take 0.5 Tablets (40 mg) by mouth daily. 30 Tablet 5 Active dilTIAZem (CARDIZEM) 60 mg tablet Take 1 Tablet (60 mg) by mouth 4 times daily. 120 Tablet 1 5 Active apixaban (ELIQUIS) 2.5 mg tablet Take 1 Tablet (2.5 mg) by mouth 2 times daily. 60 Tablet 1 5 Active lisinopriL (PRINIVIL) 10 mg tablet Take 0.5 Tablets (5 mg) by mouth daily. 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, or end stage renal disease 10/05/2024 Hypervolemia 10/04/2024 JANELLE (acute kidney injury) 10/03/2024 Acute CHF 10/03/2024 Anemia 10/03/2024 Leukocytosis (leucocytosis) 10/03/2024 DM (diabetes mellitus) 10/03/2024 Benign hypertension 10/03/2024 Encounter for tobacco use cessation counseling 0 10/03/2024 Nicotine abuse 10/03/2024 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 10/03/2024 Encounters Date Type Department Care Team Description 07/16/2025 External Device Data STL ABSTRACTION Provider, Abstract from Last 3 Months Family History Medical History Relation Name Comments Asthma Brother Diabetes Daughter 1 Cancer Daughter 2 Asthma Sister Diabetes Son Relation Name Status Comments Brother Daughter 1 Daughter 2 Other Sister Son Social History Tobacco Use Types Packs/Day Years Used Date Smoking Tobacco: Former Cigarettes 0 Q uit: 11/03/1984 Smokeless Tobacco: Never Tobacco Cessation:Counseling Given: No Alcohol Use Standard Drinks/Week Comments Not Currently 0 (1 standard drink = 0.6 oz pur e alcohol) Feeling Safe Answer Date Recorded Are you in a relationship wi th someone who hurts you emotionally and/or physically? No 11/03/2024 Food Insecurity Answer Date Recorded Patient needs follow up regardin 12/26/2024 Transportation Needs Answer Date Record ed Patient needs follow up regardin 12/26/2024 Housing Stability Answer Date Recorded Social/Environmental Concerns No concerns Utility Needs Answer Date Recorded Patient needs follow up regardin 12/26/2024 Comments Unknown Sex and Gender Information Value Date Recorded Sex Assigned at Not on file Legal Sex Female 3:45 PM BATH HOUSE ATTENDANT Gender Identity Not on file Sexual Orientation Not on file Last Filed Vital Signs Vital Sign Reading Time Taken Comments Blood Pressure 139/76 11/06/2024 10:58 AM BATH HOUSE ATTENDANT Pulse 77 11/06/2024 10:58 AM BATH HOUSE ATTENDANT Temperature 36.1 C (97 F) 11/06/2024 10:58 AM BATH HOUSE ATTENDANT Respiratory Rate 29 11/06/2024 10:58 AM BATH HOUSE ATTENDANT Oxygen Saturation 95% 11/06/2024 10:58 AM BATH HOUSE ATTENDANT Inhaled Oxygen Concentration - - Weight 80 kg (176 lb 6.4 oz) 11/05/2024 10:30 AM BATH HOUSE ATTENDANT Height 154.9 cm (5' 1 ) 11/03/2024 12:51 AM BATH HOUSE ATTENDANT Body Mass Index 33.33 11/03/2024 12:51 AM BATH HOUSE ATTENDANT Plan of Treatment Health Maintenance Due Date Last Done Comments DIABETES ANNUAL FOOT EXAM 12/28/1953 DIABETES ANNUAL RETINAL EXAM 12/28/1953 DIABETES MICROALBUMIN ANNUAL SCREEN 12/28/1953 OSTEOPOROSIS SCREENING 2002 RSV VACCINE (60+ or ) (1 - 1-dose 75+ series) 2012 ZOSTER VACCINE (3 of 3) 04/27/2023 03/02/2023, 07/15 DIABETES HBA1C Q 6 MONTHS 04/03/2025 10/04/2024 INFLUENZA VACCINE (#1) 2025 2, 06/30/2021, 08/11/2020, Additional history exists LDL CHOLESTEROL ANNUAL 10/04/2025 10/04/2024 DTAP/TDAP/TD VACCINES (2 - T d or Tdap) 03/02/2033 03/02/2023 PNEUMOCOCCAL VACCINE 50+ YEARS Completed 0 03/02/2023, 03/02/2023, 07/15/2016 Medical Devices Implanted Type Area Monument Setter Device Identifier Shelf Expiration Date Model / Serial / Lot Cath Pd Kumar Suero [id number] [id number] - [id number] Implanted:Qty : 1 on 10/05/2024 by Rodriguez Spann DO at [facility] Catheter N/A: Abdomen [facility] [id number] 01/07/2029 [id number] / / [id number] Procedures Procedure Name Priority Date/Time Associated Diagnosis Comments LIPID PANEL Routine 10/04/2024 1:15 AM BATH HOUSE ATTENDANT HEMOGLOBIN A1C Routine 10/04/2024 1:15 AM BATH HOUSE ATTENDANT from Last 3 Months or Most Recently Relevant to Health Maintenance Results * (ABNORMAL) HEMOGLOBIN A1C (10/04/2024 1:15 AM BATH HOUSE ATTENDANT) HEMOGLOBIN A1C 6.8(H) <=5.6 % 10/05/2024 10:05 AM [facility] EST. AVG GLUCOSE, A1C 148 mg/dL 10/05/2024 10:05 AM [facility] Blood Venipuncture / Unknown 10/04/2024 1:15 AM [facility] 10/04/2024 1:38 AM [facility] [place] [facility] - 10/05/2024 10:05 AM [facility] HGB A1C INTERPRETATION NORMAL: <5.7% PRE-DIABETES: 5.7 - 6.4% DIABETES: 6.5% OR GREATER Gray Cruz DO CHEMISTRY ORDERABLES Final R esult [facility] CLIA # [id number] [address] [place] [address] * (ABNORMAL) LIPID PANEL (10/04/2024 1:15 AM [facility]) CHOLESTEROL 197 <200 mg/dL 10/04/2024 2:29 AM [facility] TRIGLYCERIDE 145 <150 mg/dL 10/04/2024 2:29 AM [facility] HDL 49 40 - 59 mg/dL 10/04/2024 2:29 AM [facility] LDL CALCULATED 119(H) <100 mg/dL 10/04/2024 2:29 AM [facility] NON-HDL CHOLESTEROL 148(H) <130 mg/dL 10/04/2024 2:29 AM [facility] Blood Venipuncture / Unknown 10/04/2024 1:15 AM BATH HOUSE ATTENDANT 10/04/2024 1:46 AM BATH HOUSE ATTENDANT Narrative [facility] - 10/04/2024 2:29 AM BATH HOUSE ATTENDANT TOTAL CHOLESTEROL mg/dL Desirable <200 Borderline high 200-239 High >=240 TRIGLYCERIDES mg/dL Normal <150 Borderline high 150-199 High 200-499 Very high >=500 HDL CHOLESTEROL mg/dL Low <40 Normal 40-59 Desirable >=60 NON HDL CHOLESTEROL mg/dL Optimal <130 Near Optimal 130-159 Borderline High 160-189 Very High >=190 CALCULATED LDL mg/dL LDL <70, OPTIMAL if have Atherosclerotic cardiovascular disease (ASCVD) or intermediate or higher (>7.5%) 10 year risk of ASCVD including most adults with diabetes. LDL <100, Optimal in adult patients with low (<7.5%) 10 year ASCVD risk LDL 100-160, Suboptimal LDL >160, High LDL >190, Very high ATPIII Guidelines Reference Ranges for Lipid Panels (NCEP/AMA) . Gray Cruz DO CHEMISTRY ORDERABLES Final R esult Performing Organization Address City/State/[facility] Co de Phone Number [facility] CLIA # [id number] [address] [address] from Last 3 Months or Most Recently Relevant to Health Maintenance Insurance [facility] [id number] Advance Directives For more information, please contact: [phone] * Full Code (Latest Code Status on File) Date Activated Date Inactivated Comments 11/02/2024 8:45 PM 11/06/2024 1:56 PM * Full Code Date Activated Date Inactivated Comments 10/03/2024 9:37 PM 10/06/2024 4:54 PM Care Teams Wrestling Coach Relationship Specialty Start Date End Date Teja Yost MD [address] [place] [address] PCP - General Family Practice 11/02/24
--- OUTSIDE RECORDS SUMMARY | 2025-08-22 12:56 | XMS_ITS | Encounter Summary ---
Author Organization [facility] Address [address] [place] [address] Phone Care Team Providers Care Charter Coordinator Name Role Phone Teja Yost MD Primary Care Provider [phone] Reason for Visit * Reason Comments Med Refill Encounter Details Date Type Department Care Team (Late st Contact Info) Description 07/20/2025 Refill [facility] [address] [place] [address] Marcus Mendoza MD [address] [place] [address] Social History Tobacco Use Types Packs/Day Years Used Date Smoking Tobacco: Never Smokeless Tobacco: Never Alcohol Use Standard Drinks/Week Comments Never 0 (1 standard drink = 0.6 oz pur e alcohol) Comments Unknown Sex and Gender Information Value Date Recorded Sex Assigned at Not on file Legal Sex Female 11:45 AM EDT Gender Identity Not on file Sexual Orientation Not on file documented as of this encounter Plan of Treatment Not on file documented as of this encounter Visit Diagnoses Not on filedocumented in this encounter Care Teams Charter Coordinator Relationship Specialty Start Date End Date Teja Yost MD [address] [place] [address] PCP - General Family Medicine 03/29/24 documented as of this encounter
--- OUTSIDE RECORDS SUMMARY | 2025-08-22 12:56 | XMS_ITS | Encounter Summary ---
Author Organization [facility] Address [address] [place] [address] Phone Care Team Providers Care Awning Maker And Installer Name Role Phone Teja Yost MD Primary Care Provider [phone] Reason for Visit * Reason Comments Med Refill Encounter Details Date Type Department Care Team (Late st Contact Info) Description 08/14/2023 Refill [facility] [address] [place] [address] Rahat Herring MD [address] [place] [address] [place] [address] CKD (chronic kidney disease), stage IV (CMS/HCC) Social History Tobacco Use Types Packs/Day Years [...] more drinks on one occasion? 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
--- OUTSIDE RECORDS SUMMARY | 2025-08-22 12:56 | XMS_ITS | Encounter Summary ---
Author Organization [facility] [employer], [facility] Address [address] [place] [address] Phone Care Team Providers Care Case Repairer Name Role Phone Teja Yost MD Primary Care Provider [phone] Encounter Details Date Type Department Care Team (Late st Contact Info) Description 08/21/2025 Treatment [facility] [employer] [address] [place] [address] Sandi Hoffmann MD [address] [place] [address] End stage renal disease; Dependence on renal dialysis Social History Tobacco Use Types Packs/Day Years [...] as of this encounter Miscellaneous Notes * Dialysis Note - Sandi Hoffmann MD - 08/21/2025 12:00 AM CST Patient: Vannessa Ramirez, 1935, 89y, F Dialysis Location: [facility] Attending [employer]ke Production Heater: Sandi Hoffmann Service Date: 08/21/2025 Service Provider: Sandi Hoffmann MD I saw the patient remotely today for a telehealth visit using audiovisual technology. OVERVIEW The patient presented with ESRD Primary cause of renal failure: Type 2 diabetes mellitus with diabetic chronic kidney disease Comments: PD log sheets reviewed. Compliant. No issues with PD. Medications and labs reviewed. LAST HOSPITALIZATION Discharge Diagnosis: I48.91 Unspecified atrial fibrillation Admission Date 11/02/24 Discharge Date 11/06/24 VITALS ASSESSMENT Vitals measured in-clinic. Comments: Did increase clonidine patch to 0.2 mg. If needed will increase hydralazine to 100 mg BID. BP Sit 08/12/2025: 224/91 07/08/2025: 218/92 06/05/2025: 184/75 Weight (kg) 08/12/2025: 72.5 07/08/2025: 70.8 Temp 08/12/2025: 97.6 Pulse 08/12/2025: 63 TREATMENT ASSESSMENT Comments: As above. BP 08/20/2025: 201/97 08/19/2025: 210/101 08/16/2025: 194/88 FLUID ASSESSMENT Fluid status acceptable. Weight gain acceptable. No changes indicated. EDW (kg) 08/20/2025: 69 08/19/2025: 69 08/16/2025: 69 Weight (kg) 08/20/2025: 71.62 08/19/2025: 71.62 08/16/2025: 70.72 EDW Variance 08/20/2025: 2.62 08/19/2025: 2.62 08/16/2025: 1.72 DIALYSIS PRESCRIPTION CCPD 7x Week Start date: 06/18/25 Cycles: 3 Cycler Fill: 1950 Avg Dwell: 2:00 Total Cycler: 450 Last Fill: Day Exch: 0 Day Fill: EDW: 69 Rx updated on: 06/18/2025 Comments: Stable. ADEQUACY ASSESSMENT Comments: Stable at goal. PD Kt/V, Total 05/20/2025: 2.51 04/26/2025: 1.74 04/10/2025: 1.39 ACCESS ASSESSMENT Access Type: PDCatheter Access SubType: Double Cuff Coiled Access Status: Active (In Use) - 10/22/2024 Access Location: Left Lower Quadrant Placed: 10/05/2024 Exit site looks clean. ANEMIA ASSESSMENT Comments: Stable. On IV iron and NORMAN therapy. HGB, TSAT 08/12/2025: 10.6, 35.0 07/08/2025: 11.0, 28.0 06/05/2025: 10.6, 37.0 Ferritin 06/05/2025: 664.0 03/06/2025: 687.0 Mircera, Sub Q (mcg) 08/12/2025: 30 07/08/2025: 50 06/05/2025: 50 Iron Sucrose (Venofer) (mg) 08/12/2025: 200 07/08/2025: 200 06/05/2025: 200 BMM ASSESSMENT Comments: PTH is at goal. Has started on renvela. PTH, Intact 06/05/2025: 191.0 03/06/2025: 102.0 Calcium, Phosphorus 08/12/2025: 8.5, 5.2 07/08/2025: 9.4, 4.4 06/05/2025: 8.5, 6.0 NUTRITION ASSESSMENT Comments: Ed on protein in diet. Started on LiquiCell Albumin is stable Potassium, Albumin 08/12/2025: 3.7, 3.7 07/08/2025: 4.0, 3.8 06/05/2025: 4.9, 3.7 PHYSICAL EXAM Comments: Denies any leg swellling. No SOB. Exam Not Performed. DIAGNOSIS Chief Complaint: N18.6 End stage renal disease Patient is stable. Patient data updated 08/21/2025 at 2:19 PM Signed By: Sandi Hoffmann MD on 08/21/2025 2:27:13 PM documented in this encounter Plan of Treatment Not on file documented as of this encounter Visit Diagnoses Diagnosis End stage renal disease Dependence on renal dialysis documented in this encounter Care Teams Case Repairer Relationship Specialty Start Date End Date Teja Yost MD [address] [facility] [place] [address] PCP - General Family Medicine 03/29/24 documented as of this encounter
--- OUTSIDE RECORDS SUMMARY | 2025-08-22 12:56 | XMS_ITS | Encounter Summary ---
Author Organization [facility] Address [address] [place] [address] Care Team Providers Care Manager Of Production Name Role Phone Teja Yost MD Primary Care Provider [phone] Encounter Details Date Type Department Care Team (Late st Contact Info) Description 10/03/2024 [facility] Non Integrated Provider [address] [place] [address] Cammy Smith, KARON [address] [address] Social History Tobacco Use Types Packs/Day Years Used Date Smoking Tobacco: Former Cigarettes 0 Q uit: 11/03/1984 Smokeless Tobacco: Never Alcohol Use Standard Drinks/Week Comments Not Currently 0 (1 standard drink = 0.6 oz pur e alcohol) Feeling Safe Answer Date Recorded Are you in a relationship wi th someone who hurts you emotionally and/or physically? No 10/03/2024 Food Insecurity Answer Date Recorded Social/Environmental Concerns No concerns Transportation Needs Answer Date Record ed Social/Environmental Concerns No concerns Housing Stability Answer Date Recorded Social/Environmental Concerns No concerns Utility Needs Answer Date Recorded Social/Environmental Concerns No concerns Comments Unknown Sex and Gender Information Value Date Recorded Sex Assigned at Not on file Legal Sex Female 3:45 PM [employer] Gender Identity Not on file Sexual Orientation Not on file documented as of this encounter Progress Notes * Cammy Smith NP - 10/03/2024 2:33 PM CST Patient has been referred to [facility] for JANELLE. Cr in June 2024 mid 2 range. Hospitalized at [facility] last week with fall and fracture arm. Cr was elevated up to 5.2 and consideration at [facility] for dialysis was given. Ultimately she was discharge on 09/25 with cr of 4.6. We received labs at [facility] today with cr up to 5.5. Patient's daughter reported weight up ~20 lbs with edema and GRAHAM with poor appetite. Lab from today in Care Everywhere tab under acumen. In discharge summary from [facility] they note + ANALI with + DSDNA. This was rechecked today and is pending in [facility]. Cammy Smith NP [employer] documented in this encounter Plan of Treatment Not on file documented as of this encounter Visit Diagnoses Not on filedocumented in this encounter Care Teams Manager Of Production Relationship Specialty Start Date End Date Teja Yost MD [address] [place] [address] PCP - General Family Practice 11/02/24 documented as of this encounter
--- OUTSIDE RECORDS SUMMARY | 2025-08-22 12:56 | XMS_ITS | Clinical Summary ---
Author Organization [facility], [facility] Address [address] [facility] [place] [address] Phone Care Team Providers Care Screen Printer Name Role Phone Teja Yost MD Primary Care Provider [phone] Allergies Active Allergy Reactions Criticality Noted Date Comments Penicillin G 01/17/2023 Medications sodium bicarbonate 650 MG tablet Take 650 mg by mouth in the morning and 650 mg in the evening and 650 mg before bedtime. Active amLODIPine (NORVASC) 10 MG tablet Take 10 mg by mouth 1 (one) time each day Active insulin glargine (LANTUS) 100 UNIT/ML injection Inject under the skin every night Active furosemide (Lasix) 40 MG tablet Take 1 tablet (40 mg total) by mouth every other day 45 tablet 3 04/10/2024 Active hydrALAZINE 25 MG tablet Take 25 mg by mouth in the morning and 25 mg in the evening. 06/16/2024 Active metoprolol succinate XL (TOPROL-XL) 100 MG 24 hr tablet Take 1 tablet (100 mg total) by mouth in the morning and 1 tablet (100 mg total) in the evening. Do not crush or chew.. 180 tablet 3 06/25/2024 Active calcitriol (ROCALTROL) 0.25 MCG capsule Take 1 capsule (0.25 mcg total) by mouth 1 (one) time each day 90 capsule 3 06/25/2024 Active Active Problems No known active problems Encounters Date Type Department Care Team Description 08/21/2025 Treatment [facility] [address] [place] [address] Sandi Hoffmann MD End stage renal disease; Dependence on renal dialysis 08/12/2025 Orders Only [facility] [address] [place] [address] Sandi Hoffmann MD 07/20/2025 Refill [facility], [facility] [address] [place] [address] Marcus Mendoza MD 07/08/2025 Orders Only [facility] [address] [place] [address] Sandi Hoffmann MD 07/08/2025 Treatment [facility] [address] [place] [address] Sandi Hoffmann MD End stage renal disease; Dependence on renal dialysis 06/19/2025 Orders Only [facility], [facility] [address] [place] [address] Sandi Hoffmann MD 06/10/2025 Treatment [facility] [address] [place] [address] Sandi Hoffmann MD End stage renal disease; Dependence on renal dialysis 06/05/2025 Orders Only [facility], [facility] [address] [place] [address] Sandi Hoffmann MD from Last 3 Months Immunizations Immunization Administration Dates Next Due Influenza Split High Dose Preservative Free IM 08/11/2020,07/17/2019,11/20/2018,2015 Influenza, Unspecified 06/30/2022,06/30/2021 Pneumococcal Conjugate 13-Valent 07/15/2016 Pneumococcal, Unspecified 03/02/2023 Shingrix 03/02/2023 Tdap 03/02/2023 Zoster 07/15/2016 Family History Medical History Relation Comments Diabetes Mother Relation Status Comments Father Mother Social History Tobacco Use Types Packs/Day Years [...] Sign Reading Time Taken Comments Blood Pressure 112/58 06/19/2024 1:47 PM CDT Pulse 64 06/19/2024 1:47 PM CDT Temperature - - Respiratory Rate - - Oxygen Saturation - - Inhaled Oxygen Concentration - - Weight 82.6 kg (182 lb 3.2 oz) 06/19/2024 1:47 P M CDT Height 154.9 cm (5' 1 ) 06/19/2024 1:47 PM CDT Body Mass Index 34.43 06/19/2024 1:47 PM CDT Plan of Treatment Health Maintenance Due Date Last Done Comments Hepatitis B Vaccine (1 of 5 - Risk Dialysis 4-dose series) 1955 Diabetes: Ophthalmology Exam 04/14/2024 Diabetes: Pedal Pulse Checked 04/14/2024 Diabetes: Sensory Foot Exam 04/14/2024 Diabetes: Visual Foot Exam 04/14/2024 Diabetes: Hemoglobin A1C 09/05/2025 025, 03/06/2025, 12/05/2024, Additional history exists Pneumococcal Vaccine: 50+ Years Completed 06/24/2024, 03/02/2023, 07/15/2016, Additional history exists Influenza Vaccine Completed 06/05/2025, , 06/30/2022, Additional history exists Procedures Procedure Name Priority Date/Time Associated Diagnosis Comments RETICULOCYTE HEMOGLOBIN Routine 08/12/2025 CBC AND DIFFERENTIAL Routine 08/12/2025 KT/V STANDARD W/URR (HC) Routine 08/12/2025 CREATININE CLEARANCE (HC) Routine 08/12/2025 BASIC METABOLIC PANEL Routine 08/12/2025 IRON AND TIBC Routine 08/12/2025 ALBUMIN Routine 08/12/2025 PROTEIN, TOTAL, SERUM Routine 08/12/2025 PHOSPHATE ( PHOSPHORUS) Routine 08/12/2025 CHEMISTRY Routine 07/08/2025 HEMATOLOGY Routine 07/08/2025 CELL COUNT W/DIFFERENTIAL Routine 06/19/2025 CULTURE,PD FLUID AEROBIC\ANAEROBIC Routine 06/19/2025 SPECIAL CHEMISTRY Routine 06/05/2025 CHEMISTRY Routine 06/05/2025 CHEMISTRY Routine 06/05/2025 HEMATOLOGY Routine 06/05/2025 from Last 3 Months Results * (ABNORMAL) Iron and TIBC (08/12/2025) Pathologist [facility] Iron, Total 77 45 - 160 mcg/dL [facility] TIBC 218(L) 250 - 450 mcg/dL (calc) [facility] Iron Saturation (TSat) 35 16 - 45 % (calc) [facility] 08/12/2025 08/08/2025 8:0 0 AM COOK HELPER VEGETABLE Narrative Resulting Agency Comment Performing Organization Information: Site ID: SARA Name: [email or web address] Address: [address] [phone] Director: Hayes Johnson MD us Sandi Hoffmann MD LAB BLOOD ORDERABLES Final Re sult [email or web address] [address] [phone] * (ABNORMAL) Kt/V Standard w/URR (08/12/2025) BUN 40(H) 7 - 25 mg/dL [facility] Urea Nitrogen, PDF Timed 32 mg/dL [facility] Comment: A reference range has not been established for body fluids. If blood results are available, results may be interpreted in comparison to those results. Drain volume, PDF OTH mL [facility] Comment: Unable To Report. Result not calculated because one or more required values were not available. Urea Nitrogen, Urine Timed 183 mg/dL [facility] Volume, (UVOL) OTH mL [facility] Comment: Unable To Report. Result not calculated because one or more required values were not available. 08/12/2025 08/08/2025 8:0 0 AM COOK HELPER VEGETABLE Narrative Resulting Agency Comment Performing Organization Information: Site ID: [place] Name: [facility] Address: [address] [place] [address] Director: Hayes Johnson MD us Sandi Hoffmann MD LAB [id number] SOLICITED RESULTS Final Result [facility] [address] [place] [address] * (ABNORMAL) Creatinine Clearance (08/12/2025) Creatinine 5.84(H) 0.60 - 0.95 mg/dL [facility] Glucose, Fluid 912 mg/dL [facility] Comment: Verified by repeat analysis. Creatinine, PDF Uncor 2.57 mg/dL [facility] Comment: A reference range has not been established for body fluids. If blood results are available, results may be interpreted in comparison to those results. Creatinine values have been corrected for glucose interference using a correction factor of 0.0002. Creatinine, Urine Timed 38 mg/dL [facility] Drain volume, PDF 5,853 mL [facility] Collection Time 24.0 hrs [facility] Creatinine, PDF Timed Cor 2.4 mg/dL [facility] Creatinine, PD Fluid 24hr, Corrected 140.5 mg/24 hr [facility] Volume, (UVOL) 1,700 mL [facility] Collection Interval, Ur 24.0 hours [facility] Creatinine, 24H Ur 0.6 0.5 - 1.6 g/24 h [facility] Amputee Status NO AMPUTATIONS [facility] Creatinine Clear, PDF 1.7 mL/min [facility] Creatinine Clear, PDF Norm 1.9 mL/min [facility] Creat Clear, PDF Norm Wkly 17 L/wk [facility] Creat Clear, PDF Norm Wkly 19 L/wk [facility] Creatinine Clearance 24Hr Urine 8 mL/min [facility] Creat Clear, Urine Norm 8.7(L) 77.0 - 94.0 mL/min [facility] Creat Clear, Urine Wkly 80.6 L/wk [facility] Creat Clear, Urine Nor Wkly 88 L/wk [facility] Creat Clear, Tot Wkly 98 L/wk [facility] Creat Clear, Tot Norm Wkly 107 L/wk [facility] BSA (King) 1.53 sq.m [facility] Patient Height 155.0 cm [facility] Weight (KG) 55.1 kg [facility] 08/12/2025 08/08/2025 8:0 0 AM COOK HELPER VEGETABLE Narrative Resulting Agency Comment Performing Organization Information: Site ID: MS Name: [facility] Address: [address] [place] [address] Director: Hayes Johnson MD us Sandi Hoffmann MD LAB [id number] SOLICITED RESULTS Final Result [facility] [address] [facility] [place] [address] * (ABNORMAL) Reticulocyte Hemoglobin (08/12/2025) Reticulocyte Hemoglobin 36.9(H) 26.7 - 35.5 pg [facility] Reticulocyte 1.5 % [facility] Reticulocytes, Absolute 47,550 20,000 - 80,000 cells/uL [facility] 08/12/2025 08/08/2025 8:0 0 AM COOK HELPER VEGETABLE Narrative Resulting Agency Comment Performing Organization Information: Site ID: MS Name: [facility] Address: [address] [phone] Director: Hayes Johnson MD us Sandi Hoffmann MD LAB BLOOD ORDERABLES Final Re sult [facility] [address] [phone] * (ABNORMAL) CBC and Differential (08/12/2025) WBC 9.3 3.8 - 10.8 Thousand/u L [facility] RBC 3.21(L) 3.80 - 5.10 Million/uL [facility] Hemoglobin 10.6(L) 11.7 - 14.0 g/dL [facility] Hematocrit 32.2(L) 35.9 - 46.0 % [facility] MCV 100.3 81.4 - 101.7 fL [facility] MCH 33.0 27.0 - 33.0 pg [facility] MCHC 32.9 31.6 - 35.4 g/dL [facility] RDW 12.8 11.0 - 15.0 % [facility] Platelets 146 140 - 400 Thousand/u L [facility] MPV 10.4 7.5 - 12.5 fL [facility] Neutrophils Absolute 4,827 1,500 - 7,800 cells/uL [facility] Lymphocytes Absolute 3,032 850 - 3,900 cells/uL [facility] Monocytes Absolute 856 200 - 950 cells/uL [facility] Eosinophils Absolute 474 15 - 500 cells/uL [facility] Basophils Absolute 112 0 - 200 cells/uL [facility] Neutrophils Relative 51.9 % [facility] Lymphocytes 32.6 % [facility] Monocytes 9.2 % [facility] Eosinophils 5.1 % [facility] Basophils Relative 1.2 % [facility] 08/12/2025 08/08/2025 8:0 0 AM COOK HELPER VEGETABLE Narrative Resulting Agency Comment Performing Organization Information: Site ID: SARA Name: [email or web address] Address: [address] [place] [phone] Director: Hayes Johnson MD Sandi Hoffmann MD LAB BLOOD ORDERABLES Final Re sult Performing Organization Address [facility] Co de Phone Number [facility] [address] [place] [phone] * (ABNORMAL) Protein, total (08/12/2025) Total Protein 5.9(L) 6.1 - 8.1 g/dL [facility] 08/12/2025 08/08/2025 8:0 0 AM COOK HELPER VEGETABLE Narrative Resulting Agency Comment Performing Organization Information: Site ID: SARA Name: [email or web address] Address: [address] [place] [phone] Director: Hayes Johnson MD Sandi Hoffmann MD LAB BLOOD ORDERABLES Final Re sult Performing Organization Address [facility]/ZIP Co de Phone Number [facility] [address] [place] [phone] * (ABNORMAL) Phosphorus (08/12/2025) Phosphorus 5.2(H) 3.0 - 4.3 mg/dL [facility] 08/12/2025 08/08/2025 8:0 0 AM COOK HELPER VEGETABLE Narrative Resulting Agency Comment Performing Organization Information: Site ID: SARA Name: [email or web address] Address: [address] [place] [phone] Director: Hayes Johnson MD Sandi Hoffmann MD LAB BLOOD ORDERABLES Final Re sult Performing Organization Address [facility] Co de Phone Number [facility] [id number] [place] [phone] * Albumin (08/12/2025) Pathologist [facility] Albumin 3.7 3.6 - 5.1 g/dL [facility] 08/12/2025 08/08/2025 8:0 0 AM COOK HELPER VEGETABLE Narrative Resulting Agency Comment Performing Organization Information: Site ID: SARA Name: [facility] Address: [address] [place] [phone] Director: Hayes Johnson MD Sandi Hoffmann MD LAB BLOOD ORDERABLES Final Re sult Performing Organization Address [facility] Co de Phone Number [facility] [address] [place] [phone] * (ABNORMAL) Basic Metabolic Panel (08/12/2025) Pathologist [facility] Glucose 142(H) 65 - 99 mg/dL [facility] Comment: For someone without known diabetes, a glucose value >125 mg/dL indicates that they may have diabetes and this should be confirmed with a follow-up test. BUN 40(H) 7 - 25 mg/dL [facility] Creatinine 5.84(H) 0.60 - 0.95 mg/dL [facility] BUN/Creatinine Ratio 7 6 - 22 (calc) [facility] Sodium 138 135 - 146 mmol/L [facility] Potassium 3.7 3.5 - 5.3 mmol/L [facility] Chloride 103 98 - 110 mmol/L [facility] Bicarbonate (CO2) 25 20 - 29 mmol/L [facility] Calcium 8.5(L) 8.6 - 10.0 mg/dL [facility] 08/12/2025 08/08/2025 8: 00 AM COOK HELPER VEGETABLE Narrative Resulting Agency Comment Performing Organization Information: Site ID: SARA Name: [email or web address] Address: [address] [place] [address] Director: Hayes Johnson MD Sandi Hoffmann MD LAB BLOOD ORDERABLES Final Re sult [email or web address] [address] [place] [phone] * (ABNORMAL) HEMATOLOGY (07/08/2025) Only the most recent of2 resultswithin the time period is included. Neutrophils 55.7 40.0 - 75.0 % [facility] Lymphocytes Relative 31.1 19.0 - 48.0 % [facility] Monocytes 4.9 3.0 - 10.0 % [facility] Eosinophils Relative 4.9 0.0 - 7.0 % [facility] Basophils Relative 0.6 0.0 - 1.5 % [facility] BLACK 2.9 0.0 - 4.0 % [facility] WBC 10.19 4.80 - 10.80 1000/mcL [facility] RBC 3.33(L) 4.20 - 5.40 mill/mcL [facility] Hematocrit 32.5(L) 37.0 - 47.0 % [facility] MCV 98 80 - 100 fl [facility] MCH 33.0(H) 27.0 - 31.0 pg [facility] MCHC 33.7 30.0 - 36.0 g/dL [facility] RDW 13.3 11.5 - 14.5 % [facility] Hemoglobin 11.0(L) 12.0 - 16.0 g/dL [facility] Hemoglobin x 3 33(L) 36.0 - 48.0 % [facility] Platelets 174 130 - 400 1000/mcL [facility] Retic Ct Pct 1.76 0.80 - 2.10 % [facility] Reticulocyte Hemoglobin 34.1(H) 25.4 - 31.8 pg [facility] 07/08/2025 07/09/2025 10: 47 AM COOK HELPER VEGETABLE Narrative [facility] - 07/09/2025 Unless otherwise specified, test(s) performed at: [facility], [address] [place] [address] LOG ROLLER: Christian Limon M.D. For any questions, please call customer service at FREQUENCY:MONTHLY Resulting Agency Comment Specimen source: Blood Sandi Hoffmann MD LAB BLOOD ORDERABLES Final Re sult [email or web address] See order comments or contact performing lab Unknown, [place] * (ABNORMAL) [employer] [facility] Chemistry (07/08/2025) Only the most recent of3 resultswithin the time period is included. BUN 50(H) 6 - 19 mg/dL [facility] Creatinine 5.70(H) 0.60 - 1.30 mg/dL [facility] BUN/Creatinine Ratio 8.8(L) 10.0 - 20.0 [facility] Sodium 139 136 - 145 mEq/L [facility] Potassium 4.0 3.5 - 5.1 mEq/L [facility] Chloride 100 96 - 108 mEq/L [facility] Bicarbonate (CO2) 24 22 - 29 mEq/L [facility] Calcium 9.4 8.4 - 10.2 mg/dL [facility] Corrected Calcium 9.6 8.4 - 10.2 mg/dL [facility] Comment: Corrected Calcium is not equivalent to measured Ionized Calcium. Phosphorus 4.4 2.6 - 4.5 mg/dL [facility] Calcium Phosphorus Product 41 0 - 54 [facility] Calcium Phosporus Product, Cor 42 0 - 54 [facility] Total Protein 6.5 6.0 - 8.5 g/dL [facility] Albumin 3.8 3.5 - 5.2 g/dL [facility] Globulin, Total 2.7 2.0 - 4.0 g/dL [facility] A/G Ratio 1.4 1.0 - 2.0 [facility] Glucose 145(H) 70 - 100 mg/dL [facility] Iron 70 30 - 160 mcg/dL [facility] UIBC 179 155 - 355 mcg/dL [facility] TIBC 249 185 - 515 mcg/dL [facility] Iron Saturation (TSat) 28 20 - 55 % [facility] 07/08/2025 07/09/2025 10: 54 AM COOK HELPER VEGETABLE Narrative [facility] - 07/09/2025 Unless otherwise specified, test(s) performed at: [facility], [address] [place] [id number] LOG ROLLER: Christian Limon M.D. For any questions, please call customer service at FREQUENCY:MONTHLY Resulting Agency Comment Specimen source: Serum Sandi Hoffmann MD LAB BLOOD ORDERABLES Final Re sult [facility] [employer] [facility] See order comments or contact performing lab Unknown, [place] * CULTURE,PD FLUID AEROBIC\ANAEROBIC (06/19/2025) Culture result, PDF Aerobic/Anaerobic Complete [facility] Gram Stain See below [facility] Comment: Few WBC No Organisms Seen Gram Stain Blood Culture Bottle - PDF Aerobic/Anaerobic See below [facility] Comment: Gram Positive Cocci in Clusters Detected in Aerobic and Anaerobic Bottles Isolate #1, PD Fluid Aerobic and Anaerobic See below [facility] Comment: Staphylococcus aureus Based on CLSI guidelines, testing of all Staphylococcus isolates includes Penicillin, Oxacillin and screening with Cefoxitin. Since this isolate is susceptible to all, it is considered susceptible to all B-lactams (Penicillins, Cephems/Cephalosporins, and Carbapenems), including B-lactamase inhibitor combinations. Therefore further testing of Cephems (Cefazolin and Ceftazidime) is not advised. ANTIBIOTIC VAZQUEZ (mcg/mL) SENSITIVITY PENICILLIN 0.12 S CLINDAMYCIN <=0.25 S ERYTHROMYCIN <=0.25 S GENTAMICIN <=0.5 S LEVOFLOXACIN 0.25 S LINEZOLID 2 S MOXIFLOXACIN <=0.25 S OXACILLIN 0.5 S RIFAMPIN <=0.5 S TETRACYCLINE <=1 S TRIMETHOPRIM/SULFA <=10 S VANCOMYCIN <=0.5 S 06/19/2025 06/20/2025 9:0 6 AM CDT Narrative [facility] - 06/23/2025 Unless otherwise specified, test(s) performed at: [facility], [address] [place] [id number] LOG ROLLER: Christian Limon M.D. For any questions, please call customer service at FREQUENCY:OTHER Resulting Agency Comment Specimen source: PD Fluid/PD EFFLUENT us Sandi Hoffmann MD LAB MICROBIOLOGY - GENERAL OR DERABLES Final Result Performing Organization Address City/[facility]/ZIP Co de Phone Number [facility] [employer] [facility] See order comments or contact performing lab Unknown, [place] * (ABNORMAL) CELL COUNT W/DIFFERENTIAL (06/19/2025) Source PD Effluent [facility] Color, Fluid Colorless Colorless [facility] Appearance, Fluid Clear Clear [facility] Fluid WBC Count 447(H) 0 - 50 /mm3 [facility] Erythrocytes in Peritoneal Dialysis Fluid 95(H) 0 - 0 /mm3 [facility] Polymorph Cells 74(H) 0 - 35 % [facility] Mononuclear Cells 26(L) 75 - 100 % [facility] 06/19/2025 06/20/2025 9:4 4 AM CDT Narrative [facility] - 06/20/2025 Unless otherwise specified, test(s) performed at: [facility], [address] [place], [place] [id number] LOG ROLLER: Christian Limon M.D. For any questions, please call customer service at FREQUENCY:OTHER Resulting Agency Comment Specimen source: PD Fluid/PD Effluent us Sandi Hoffmann MD LAB BLOOD ORDERABLES Final Re sult Performing Organization Address [facility]/ZIP Co de Phone Number [facility] #[email or web address] [facility] See order comments or contact performing lab Unknown, [place] * (ABNORMAL) SPECIAL CHEMISTRY (06/05/2025) [facility] Hemoglobin A1C 6.1(H) 4.8 - 5.9 % [facility] 06/05/2025 06/06/2025 11: 25 AM CDT Narrative [facility] - 06/06/2025 Unless otherwise specified, test(s) performed at: [facility], [address] [place] [id number] LOG ROLLER: Christian Limon M.D. For any questions, please call customer service at FREQUENCY:MONTHLY Resulting Agency Comment Specimen source: Blood us Sandi Hoffmann MD LAB BLOOD BANK TEST ORDERABLE S Final Result [facility] See order comments or contact performing lab Unknown, [place] from Last 3 Months Insurance [facility] Medicare Care Teams Screen Printer Relationship Specialty Start Date End Date Teja Yost MD [address] [place] [address]. [place] [address] PCP - General Family Medicine 03/29/24
--- OUTSIDE RECORDS SUMMARY | 2025-08-22 12:56 | XMS_ITS | Encounter Summary ---
Author Organization [facility] Address [address] [place] [phone] Phone Care Team Providers Care Technical Staff Engineer Name Role Phone Teja Yost MD Primary Care Provider [phone] Reason for Visit * Reason Comments Med Refill Encounter Details Date Type Department Care Team (Late st Contact Info) Description 10/05/2024 Refill [facility] [address] [place] [phone] [place] [address] [place] [address] [place] [phone] Primary hypertension Social History Tobacco Use Types Packs/Day Years [...] Recorded Patient Health Questionnaire-2 Score 0 01/09/2024 [facility] - Mental Health Answer Date Recorde d Little interest or pleasure in doing things Not at all 01/09/2024 Feeling down, depressed, or hopeless Not at all 01/09/2024 Feeling of Stress Not on file 01/09/2024 Comments Unknown Sex and Gender Information Value Date Recorded Sex Assigned at Not on file Legal Sex Female 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
--- OUTSIDE RECORDS SUMMARY | 2025-08-22 12:56 | XMS_ITS | Encounter Summary ---
Author Organization [facility] Address [address] [place] [phone] Phone Care Team Providers Care Junior Assistant Manager Name Role Phone Teja Yost MD Primary Care Provider [phone] Reason for Visit * Reason Comments Med Refill Encounter Details Date Type Department Care Team (Late st Contact Info) Description 10/05/2021 Refill [facility] MED[facility] BUILDING [address] [place] [address] Rahat Herring MD [address] [place] [phone] Chronic kidney disease, unspecified; Peripheral edema Social [...] on file Legal Sex Female 3:32 PM ONLINE CONTENT EDITOR Gender Identity Not on file Sexual Orientation Not on file documented as of this encounter Plan of Treatment Not on file documented as of this encounter Visit Diagnoses Diagnosis Chronic kidney disease, unspecified Peripheral edema Edema documented in this encounter Care Teams Junior Assistant Manager Relationship Specialty Start Date End Date Teja Yost MD [address] [place] [phone] PCP - General Family Medicine 07/17/20 documented as of this encounter
[2025-08-22] MEDS: hyDRALAzine 20 mg/mL INJ 1 mL 10 MG IVP (14:08)
[2025-08-22 14:11] VITALS: BP 201/88; PULSE 62; O2SAT 97
[2025-08-22 14:29] VITALS: BP 174/70; PULSE 64; O2SAT 96
[2025-08-22 14:29] LABS: Glucose Urine UA Trace (Normal); Nitrate Urine Negative (Negative); Specific Gravity, Urine 1.011 (1.005-1.030)
[2025-08-22 14:31] LABS: Add Urine Microscopic? YES
[2025-08-22 14:45] VITALS: BP 166/69; PULSE 69; O2SAT 97
== END 2025-08-22 15:44 | disposition home or self-care (01) ==
PROVIDERS: Emergency Provider Family Medicine; PCP Physician Assistant
DX: K66.8 Other specified disorders of peritoneum (principal); D64.9 Anemia, unspecified; E11.22 Type 2 diabetes mellitus with diabetic chronic kidney disease; N18.6 End stage renal disease; Z99.2 Dependence on renal dialysis; I50.9 Heart failure, unspecified; Z87.891 Personal history of nicotine dependence; Z79.4 Long term (current) use of insulin; Z79.01 Long term (current) use of anticoagulants
CPT/HCPCS: 36415; 71045; 74176; 80053; 81001; 83605; 83690; 85025; 87040; 96374; 99285; J0360